=== PATIENT | female | born 1980 ===

== ENCOUNTER 2020-12-15 11:56 | Outpatient (REF) | payer MEDICAID, SELFPAY ==
--- NOTE | ~2020-12-15 | MM_ITS ---
EXAMINATION: MM SCREENING DIGITAL BREAST TOMOSYNTHESIS, BILATERAL CLINICAL INFORMATION: Screening. Asymptomatic. The lifetime risk of breast cancer based on the Tyrer-Cuzick Model is 21%. COMPARISON: Mammography: 04/17/2019, 04/12/2019 TECHNIQUE: Digital breast tomosynthesis is performed in both the craniocaudal and mediolateral oblique views along with computer-aided detection (CAD). Synthesized 2D images are generated from the tomosynthesis. Additional exaggerated right CC view is provided. FINDINGS: The breasts are almost entirely fatty (ACR BI-RADS breast composition Category a). There are no significant masses, abnormal calcifications, or other abnormalities. No developing density. The axilla and skin contours are unremarkable. MM/MM tomosynthesis screening BI IMPRESSION: No mammographic evidence of malignancy. ASSESSMENT: BI-RADS 1: Negative RECOMMENDATION: Routine annual mammography screening. This patient's information was entered into a reminder system with a target due date for their next mammogram.
== END 2020-12-15 11:57 | disposition home or self-care (01) ==
LOC: HO.MAMMO 11:56
PROVIDERS: PCP Internal Medicine; Visit Provider Internal Medicine
DX: Z12.31 Encounter for screening mammogram for malignant neoplasm of breast (principal)
CPT/HCPCS: 77063; 77067

== ENCOUNTER 2021-04-15 09:55 | Outpatient (REF) | payer MEDICAID, SELFPAY ==
--- NOTE | ~2021-04-15 | XR_ITS ---
EXAMINATION: XR KNEE, RIGHT CLINICAL INFORMATION: Right knee pain. COMPARISON: None. TECHNIQUE: Four views of the right knee. FINDINGS: There is mild narrowing of the medial compartment compared with the lateral compartment. Some minimal osteophytes are present on the tibial plateau medially. The patellofemoral compartment appears unremarkable. A tiny joint effusion is present. No acute fractures are seen. XR/XR knee RT 4V IMPRESSION: Mild degenerative changes with narrowing of the medial compartment.
== END 2021-04-15 09:56 | disposition home or self-care (01) ==
LOC: HO.XRAY 09:55
PROVIDERS: PCP Internal Medicine; Visit Provider Internal Medicine
DX: M25.561 Pain in right knee (principal)
CPT/HCPCS: 73564

== ENCOUNTER 2021-05-28 13:00 | Outpatient (RCR) | payer MEDICAID, SELFPAY | END 2021-09-18 14:47 | disposition home or self-care (01) | LOC: HO.PTWFD 13:00 | PROVIDERS: PCP Internal Medicine; Visit Provider Internal Medicine | DX: M25.561 Pain in right knee (principal) | CPT/HCPCS: 97110; 97140; 97161 ==

== ENCOUNTER → 2022-01-21 07:43 | Outpatient (REF) | payer MEDICAID, SELFPAY ==
--- NOTE | 2022-01-21 07:30 | CA_ITS ---
Transthoracic Echocardiogram Patient (Last, First, Middle): Mikaela Espinal L Gender: Female Date of : 1980 Age: 41 Procedure Date: 01/21/2022 Procedure Type: Transthoracic Echocardiogram Location: OP Height: 160.02 cm Weight: 142.88 kg BSA: 2.35 m2 Heart Rate: bpm BP: 130 / 80 mmHg Head Of Store Operations: JUAN JOSE Referring MD: Moni Green MD Symptoms: HTN [id number] Study Quality: Technically Difficult/Contrast ECG Rhythm: Sinus Conclusions: - The left ventricular systolic function is normal. The calculated ejection fraction is 65% by biplane method. - No obvious valvular pathology seen on this study. - Mild pulmonary hypertension is present. Findings Procedure Information Contrast agent, definity, is being given per protocol without apparent complications. Left Ventricle Normal left ventricular cavity size. There is normal left ventricular wall thickness. The left ventricular systolic function is normal. The calculated ejection fraction is 65% by biplane method. There is no evidence of regional wall motion abnormalities. Diastolic function is normal for age. Right Ventricle Normal right ventricular cavity size and systolic function. Atria Both atria are normal in size. Aortic Valve There is a normal trileaflet aortic valve. There is no aortic valve stenosis. There is no aortic valve regurgitation. Mitral Valve The mitral valve appears normal. There is trace mitral valve regurgitation. There is no mitral valve stenosis. Pulmonic Valve The pulmonic valve was not well visualized. Tricuspid Valve There is trace tricuspid valve regurgitation. The right ventricular systolic pressure is 41 mmHg. Mild pulmonary hypertension is present. Great Vessels The aortic annulus, sinuses of valsalva, and asc aorta are normal in size. Venous The inferior vena cava is normal in size and collapses greater than 50% with inspiration. Pericardium/Pleural There is no evidence of pericardial effusion. Prior Study Comparison No significant change compared to prior study dated: 06/05/2018. Recommendations, Care & Conclusions No obvious valvular pathology seen on this study. Measurements 2D Linear Measurements IVSd: 0.96 0.6-0.9/0.6-1.0 cm LVIDd: 5.37 3.9-5.3/4.2-5.9 cm LVIDd Index: 2.29 2.4-3.2/2.2-3.1 cm/m2 LVIDs: 3.91 2.0-3.6 cm LVPWd: 0.83 0.7-1.1 cm LA Diam: 4.20 2.7-3.8/3.0-4.0 cm LAIDs Index: 1.79 1.5-2.3 cm/m2 LV Mass: 220.38 67-162/88-224 g LV Mass Index: 93.78 43-95/49-115 g/m2 LVOT Diam: 2.10 3.0+(-)1.3 cm 2D Systolic Function EF 4C: 62.80 >55% EF 2C: 69.10 >55% EF BiP: 65.40 >55% Mitral Valve MV Pk E: 1.14 MV PK A: 1.09 MV Decel Time: 119.00 E/A: 1.00 E'Lateral: 10.40 E'Medial: 9.36 E/E' Med: 12.20 E/E' Lat: 11.00 PHT: 35.00 MVA PHT: 6.29 Decel [place]: 9.55 Aortic Valve AoV Pk Terry: 1.61 AoV Mn Terry: 1.12 AoV VTI: 0.33 AoV Pk Grad: 10.00 Aov Mn Grad: 6.00 DANDRE Cont.VTI: 2.82 LVOT LVOT Pk Terry: 1.19 LVOT Mn Terry: 0.70 LVOT VTI: 0.27 LVOT Pk Grad: 6.00 LVOT Mn Grad: 3.00 LVOT Diam: 2.10 LVOT Area: 3.46 Diastolic Function MV Pk E: 1.14 MV Pk A: 1.09 E/A: 1.00 E'Medial: 9.36 E/E' Med: 12.20 E' Laterial: 10.40 E/E' Lat: 11.00 Right Ventricle TAPSE (mm): 25.40 TVS' Terry: 11.60 Tricuspid Valve TR Pk Terry: 2.88 TR Pk Grad: 33.00 RA Press: 8.00 RVSP: 41.00 Great Vessels Aorta Sinus of Valsalva: 2.86 2.0-3.[address] [place]: 2.46 1.7-3.4 cm Ao Asc: 2.70 2.1-3.4 cm Ao Arch: 2.60 Updated in Other Vendor System with Status of Final Alok Domingo MD electronically signed on 01/23/2022 10:57:49 AM with status of Final
== END ==
LOC: HO.CARD 07:43
PROVIDERS: PCP Internal Medicine; Visit Provider Internal Medicine
DX: R06.00 Dyspnea, unspecified (principal); I10 Essential (primary) hypertension; G47.33 Obstructive sleep apnea (adult) (pediatric)
CPT/HCPCS: 93306; Q9957

== ENCOUNTER 2022-01-27 08:21 | Outpatient (REF) | payer MEDICAID, SELFPAY ==
--- NOTE | ~2022-01-27 | MM_ITS ---
EXAMINATION: MM SCREENING DIGITAL BREAST TOMOSYNTHESIS, BILATERAL CLINICAL INFORMATION: Screening. Asymptomatic. The lifetime risk of breast cancer based on the Tyrer-Cuzick Model is 14.3%. COMPARISON: Mammography: December 15, 2020 and studies dating back to April 12, 2019 TECHNIQUE: Digital breast tomosynthesis is performed in both the craniocaudal and mediolateral oblique views along with computer-aided detection (CAD). Synthesized 2D images are generated from the tomosynthesis. FINDINGS: The breasts are almost entirely fatty (ACR BI-RADS breast composition Category a). There are no significant masses, abnormal calcifications, or other abnormalities. MM/MM tomosynthesis screening BI IMPRESSION: There are no significant changes from prior study. ASSESSMENT: BI-RADS 1: Negative RECOMMENDATION: Routine annual mammography screening. This patient's information was entered into a reminder system with a target due date for their next mammogram.
== END 2022-01-27 08:22 | disposition home or self-care (01) ==
LOC: HO.MAMMO 08:21
PROVIDERS: PCP Internal Medicine; Visit Provider Internal Medicine
DX: Z12.31 Encounter for screening mammogram for malignant neoplasm of breast (principal)
CPT/HCPCS: 77063; 77067

== ENCOUNTER → 2022-07-14 12:44 | Outpatient (BNVA) | payer MEDICAID, SELFPAY | PROVIDERS: PCP Internal Medicine; Visit Provider Physician Assistant | DX: Z01.818 Encounter for other preprocedural examination (principal); E66.01 Morbid (severe) obesity due to excess calories; Z68.43 Body mass index [BMI] 50.0-59.9, adult; G47.33 Obstructive sleep apnea (adult) (pediatric); I10 Essential (primary) hypertension; J45.909 Unspecified asthma, uncomplicated; M19.90 Unspecified osteoarthritis, unspecified site; K21.9 Gastro-esophageal reflux disease without esophagitis; E55.9 Vitamin D deficiency, unspecified | CPT/HCPCS: 99202; 99212 ==

== ENCOUNTER 2022-07-22 07:57 | Outpatient (REF) | payer MEDICAID, SELFPAY ==
[2022-07-22 08:15] LABS: MANUAL DIFF FLAG NO
[2022-07-22 08:34] LABS: Basophils Percent Auto 0.5 % (0-2); Eosinophils Absolute Auto 0.1 X10*3/uL (0.0-0.4); Eosinophils Percent Auto 1.7 % (0-4); Hematocrit 40.2 % (37.0-47.0); Hemoglobin 12.8 g/dl (12.0-16.0); Imm Gran Abs Auto 0.03 X10*3/uL (0.00-0.03); Imm Gran Pct Auto 0.5 % (0.0-0.4); Lymphocytes Absolute Auto 2.2 X10*3/uL (1.2-4.9); Lymphocytes Percent Auto 32.8 % (20-40); Mean Corpuscular HGB Conc 31.8 g/dl (31.0-35.0); Mean Corpuscular Hemoglobin 26.6 pg (27.0-33.0); Mean Corpuscular Volume 83.4 fL (80.0-98.0); Mean Platelet Volume 11.6 fL (9.4-12.3); Monocytes Absolute Auto 0.4 X10*3/uL (0.1-1.2); Monocytes Percent Auto 6.3 % (2-11); Neutrophils Absolute Auto 3.9 x10*3/uL (2.0-8.3); Neutrophils Percent Auto 58.2 % (45-73); Platelet Count 225 X10*3/uL (160-400); Red Blood Count 4.82 X10*6/uL (4.20-5.50); Red Cell Distribution Width 12.9 % (11.0-16.0); White Blood Count 6.6 X10*3/uL (4.8-10.8)
[2022-07-22 08:48] LABS: Estimated Average Glucose 146 mg/dL; Hemoglobin A1c % 6.7 %
[2022-07-22 09:09] LABS: Alanine Aminotransferase 54 U/L (0-31); Albumin Level 4.1 g/dL (3.5-5.0); Alkaline Phosphatase 77 U/L (39-117); Anion Gap 13 (12-20); Aspartate Amino Transferase 42 U/L (5-31); Bilirubin Total 0.6 mg/dL (0.0-1.0); Blood Urea Nitrogen 14 mg/dL (9-16); C Reactive Protein 1.29 mg/dL (< or = 0.50); Carbon Dioxide 27 mmol/L (22-29); Chloride 103 mmol/L (96-108); Cholesterol 141 mg/dL; Estimated Glomerular Filt Rate > 60; Glucose Random 149 mg/dL (60-115); HDL Cholesterol 51 mg/dL; Iron 112 mcg/dL (30-160); LDL Cholesterol Calculated 78 mg/dl; Percent Iron Saturation 45 % (15-50); Sodium 139 mmol/L (135-145); Total Iron Binding Capacity 250 mcg/dL (228-428); Total Protein 7.7 g/dL (6.5-8.0); Triglycerides 64 mg/dL; Unsaturated Iron Binding 138 ug/dL
[2022-07-22 09:20] LABS: Ferritin 601 ng/mL (10-250); Insulin 29 uU/mL (2-29); TSH reflex Free T4 1.39 uIU/mL (0.32-4.0); Vitamin D 25-OH Total 19.9 ng/mL (>30)
[2022-07-22 09:30] LABS: Folate 12.3 ng/mL (> or = 4.0); Vitamin B12 517 pg/mL (200-900)
[2022-07-23 15:21] LABS: Calcium (PTHI) 8.7 mg/dL (8.6-10.2); PTHI 93 pg/mL (16-77)
[2022-07-27 22:22] LABS: Zinc 64 mcg/dL (60-130)
[2022-07-28 10:31] LABS: Vitamin A 23 mcg/dL (38-98)
[2022-07-28 17:27] LABS: Vitamin B1 <6 nmol/L (8-30)
== END 2022-07-22 07:58 | disposition home or self-care (01) ==
LOC: HO.LAB 07:57
PROVIDERS: PCP Internal Medicine; Visit Provider Physician Assistant
DX: Z01.818 Encounter for other preprocedural examination (principal)
CPT/HCPCS: 36415; 80053; 80061; 82306; 82607; 82728; 82746; 83036; 83525; 83540; 83970; 84425; 84443; 84590; 84630; 85025; 86140

== ENCOUNTER → 2022-07-28 08:52 | Outpatient (BNVA) | payer MEDICAID, SELFPAY | PROVIDERS: PCP Internal Medicine; Visit Provider Physician Assistant Surgical | DX: Z11.0 Encounter for screening for intestinal infectious diseases (principal) | CPT/HCPCS: 99211 ==

== ENCOUNTER 2022-07-28 09:15 | Outpatient (REF) | payer MEDICAID, SELFPAY ==
[2022-07-29 15:58] LABS: H Pylori Breath Test Negative (Negative)
== END 2022-07-28 09:16 | disposition home or self-care (01) ==
LOC: HO.LNP 09:15
PROVIDERS: Visit Provider Physician Assistant
DX: Z01.818 Encounter for other preprocedural examination (principal)
CPT/HCPCS: 83013

== ENCOUNTER → 2022-07-30 11:11 | Outpatient (BNVA) | payer MEDICAID, SELFPAY | PROVIDERS: PCP Internal Medicine; Referring Provider Physician Assistant; Visit Provider Dietitian, Registered | DX: E66.01 Morbid (severe) obesity due to excess calories (principal) | CPT/HCPCS: 97802 ==

== ENCOUNTER → 2022-08-02 13:42 | Outpatient (BNVA) | payer MEDICAID, SELFPAY | PROVIDERS: PCP Internal Medicine; Visit Provider Internal Medicine | DX: M54.16 Radiculopathy, lumbar region (principal) | CPT/HCPCS: 99202 ==

== ENCOUNTER → 2022-08-10 13:43 | Outpatient (BNVA) | payer MEDICAID, SELFPAY | PROVIDERS: PCP Internal Medicine; Visit Provider Physician Assistant | DX: E66.01 Morbid (severe) obesity due to excess calories (principal); Z68.43 Body mass index [BMI] 50.0-59.9, adult | CPT/HCPCS: 99212 ==

== ENCOUNTER → 2022-08-23 11:44 | Outpatient (BNVA) | payer MEDICAID, SELFPAY | PROVIDERS: PCP Internal Medicine; Visit Provider Dietitian, Registered | DX: E66.01 Morbid (severe) obesity due to excess calories (principal) | CPT/HCPCS: 97803 ==

== ENCOUNTER → 2022-09-02 13:20 | Outpatient (BNVA) | payer MEDICAID, SELFPAY | PROVIDERS: PCP Internal Medicine; Referring Provider Internal Medicine; Visit Provider Physician Assistant | DX: Z01.818 Encounter for other preprocedural examination (principal); E66.01 Morbid (severe) obesity due to excess calories; Z68.43 Body mass index [BMI] 50.0-59.9, adult; G47.33 Obstructive sleep apnea (adult) (pediatric); I10 Essential (primary) hypertension; K21.9 Gastro-esophageal reflux disease without esophagitis | CPT/HCPCS: 99212 ==

== ENCOUNTER 2022-09-08 05:39 | Outpatient (REF) | payer MEDICAID, SELFPAY ==
--- NOTE | ~2022-09-08 | FL_ITS ---
EXAMINATION: XR FLUOROSCOPY WITH IMAGES CLINICAL INFORMATION: M54.16 - Radiculopathy, lumbar region COMPARISON: None. TECHNIQUE: Fluoroscopy performed by Dr. Srinivasa Strickland. Fluoroscopy time: 0.6 minutes. Cumulative Dose: 42.3 mGy. DAP: 5.48 Gy-cm2. Images: 3. FINDINGS: There is a spinal needle overlying the outer right L3 neural foramen. There is contrast seen in the respective nerve sheath. No visible vascular communication. There is a catheter overlying lower right paralumbar region, presumably outside the patient. FL/FL guidance in treatment room IMPRESSION: Fluoroscopy for pain management procedures.
== END 2022-09-08 05:40 | disposition home or self-care (01) ==
LOC: HO.RADIR 05:39
PROVIDERS: Visit Provider Internal Medicine
DX: M54.16 Radiculopathy, lumbar region (principal)
CPT/HCPCS: 64483; J1100

== ENCOUNTER 2022-09-17 08:43 | Outpatient (REF) | payer MEDICAID, SELFPAY ==
--- NOTE | ~2022-09-17 | XR_ITS ---
EXAMINATION: XR CHEST CLINICAL INFORMATION: Morbid/severe obesity due to excess calories COMPARISON: None TECHNIQUE: 2 views of the chest were obtained. FINDINGS: No significant abnormality is noted involving the heart, lungs, mediastinum, bony thorax or soft tissues. XR/XR chest 2V IMPRESSION: Unremarkable chest examination.
--- NOTE | 2022-09-17 08:49 | ECG_ITS ---
Test Reason : e66.01 Blood Pressure : / mmHG Vent. Rate : 080 BPM Atrial Rate : 080 BPM P-R Int : 142 ms QRS Dur : 082 ms QT Int : 392 ms P-R-T Axes : 054 013 007 degrees QTc Int : 452 ms Normal sinus rhythm Normal ECG When compared with ECG of 29-MAY-2020 12:24, No significant change was found Referred By: Taylor Bean Electronically Signed By:RAGHU BAH MD
== END 2022-09-17 08:44 | disposition home or self-care (01) ==
LOC: HO.XRAY 08:43
PROVIDERS: PCP Internal Medicine; Visit Provider Physician Assistant
DX: Z01.818 Encounter for other preprocedural examination (principal); E66.01 Morbid (severe) obesity due to excess calories; G47.33 Obstructive sleep apnea (adult) (pediatric); I10 Essential (primary) hypertension; K21.9 Gastro-esophageal reflux disease without esophagitis
CPT/HCPCS: 71046; 93005

== ENCOUNTER → 2022-09-24 09:29 | Outpatient (BNVA) | payer MEDICAID, SELFPAY | PROVIDERS: PCP Internal Medicine; Referring Provider Internal Medicine; Visit Provider Physician Assistant | DX: E66.01 Morbid (severe) obesity due to excess calories (principal); G47.33 Obstructive sleep apnea (adult) (pediatric); I10 Essential (primary) hypertension; K21.9 Gastro-esophageal reflux disease without esophagitis; Z68.43 Body mass index [BMI] 50.0-59.9, adult | CPT/HCPCS: 99212 ==

== ENCOUNTER 2022-10-07 07:49 | Outpatient (REF) | payer MEDICAID, SELFPAY ==
--- NOTE | ~2022-10-07 | US_ITS ---
EXAMINATION: US COMPLETE ABDOMEN WITH LIVER ELASTOGRAPHY CLINICAL INFORMATION: Morbid/severe obesity due to excess calories. COMPARISON: CT abdomen and pelvis without contrast 09/13/2018 TECHNIQUE: Real-time imaging of the abdominal viscera. Noninvasive ultrasound liver fibrosis assessment is performed using Parvin ElastPQ point quantification shear wave elastography (2D-SWE) with a C5-2 MHz transducer. Multiple elastography samples are obtained. FINDINGS: PANCREAS: The visualized pancreatic head and body are normal in appearance. The remainder of the pancreas is obscured from visualization by the overlying bowel gas. ABDOMINAL AORTA: The proximal, middle, and distal aortic segments are normal in caliber. INFERIOR VENA CAVA: Visualized portions are normal. LIVER: The liver demonstrates normal size and contour with increased echogenicity. No focal lesion or intrahepatic biliary duct dilatation. The right lobe measures 20.5 cm in length. The left lobe measures 12.9 cm in length. Portal flow is hepatopetal. Shear wave liver elastography median stiffness is 1.29 m/s (reference: Normal median stiffness is 1.3 m/s or less). IQR/median stiffness to assess sampling precision is 0.05 (reference: Good quality data set is IQR/median stiffness of 0.15 or less). GALLBLADDER: Normal. The gallbladder is physiologically distended without evidence of stones, sludge, polyps, wall thickening or pericholecystic fluid. COMMON BILE DUCT: Normal in caliber measuring 1.0 cm in diameter. RIGHT KIDNEY: Normal. No hydronephrosis. No renal calculi or focal parenchymal lesions. The kidney measures 12.7 cm in maximum dimension. LEFT KIDNEY: There is an anechoic cyst in the mid pole measuring 1.5 x 1.4 x 1.5 cm. A cyst wasn't visualized in the upper/mid pole left kidney on previous CT abdominal exam 09/13/2018. No hydronephrosis. No renal calculi or focal parenchymal lesions. The kidney measures 13.2 cm in maximum dimension. SPLEEN: Normal. The spleen measures 12.0 cm in maximum dimension. FREE FLUID: None. US/US abdomen comp w elastography IMPRESSION: 1. Small mid pole cyst left kidney measuring 1.5 cm. Diffuse hepatic steatosis without focal lesion. 2. Liver Elastography: Median liver stiffness measures 1.29 m/s corresponding to high probability normal exam. REFERENCE: Society of Radiologists in Ultrasound Liver Stiffness Thresholds (2020): LIVER STIFFNESS THRESHOLDS: *Liver Stiffness equal or less than 1.3 m/s: High probability of being normal. *Liver Stiffness less than 1.7 m/s: In the absence of other known clinical signs, rules out compensated advanced chronic liver disease. *Liver Stiffness 1.7-2.1 m/s: Suggestive of compensated advanced chronic liver disease but need further test for confirmation. *Liver Stiffness over 2.1 m/s: Rules in compensated advanced chronic liver disease. *Liver Stiffness over 2.4 m/s: Suggestive of clinically significant portal hypertension. QUALITY OF DATA SET: *IQR/Median value equal or less than 0.15 implies a quality data set. *IQR/Median value over 0.15 implies a poor quality data set. SIGNIFICANT CHANGE FROM PRIOR EXAM: Significant change if liver stiffness measurement is 10% or greater from prior exam. OTHER CONSIDERATIONS: The stage of liver fibrosis may be overestimated in the setting of acute hepatitis, liver inflammation, elevated liver function tests, hepatic vascular congestion, obstructive cholestasis, non-fasting state, and infiltrative diseases such as amyloidosis and lymphoma. In some patients with NAFLD, the liver stiffness thresholds for compensated advanced chronic liver disease may be lower. In causes other than viral hepatitis and NAFLD, liver stiffness thresholds are not well established.
--- NOTE | ~2022-10-07 | FL_ITS ---
EXAMINATION: XR FLUOROSCOPY UPPER GI WITH AIR CLINICAL INFORMATION: Morbid/severe obesity due to excess calories COMPARISON: None TECHNIQUE: Routine upper GI air-contrast study was performed in upright and lying position. FINDINGS: Following oral administration of thick barium and effervescent granules there is normal propagation of bolus from the oral cavity through the pharynx, esophagus into stomach without any evidence of obstruction, narrowing or stricture. There is no extrinsic compression. On placing patient supine and prone the course, caliber and peristalsis of the stomach, duodenal bulb and the sweep is normal. The mucosal pattern of esophagus, stomach and the duodenum is normal. There is a moderate to large gastroesophageal reflux without hiatal hernia. FLUOROSCOPY TIME: 1.3 minutes DOSE AREA PRODUCT: 36.858 uGy-m2 (microgray-meter squared) FL/FL upper GI w air IMPRESSION: Large gastroesophageal reflux without hiatal hernia. Otherwise unremarkable.
== END 2022-10-07 07:50 | disposition home or self-care (01) ==
LOC: HO.US 07:49
PROVIDERS: Visit Provider Physician Assistant
DX: Z01.818 Encounter for other preprocedural examination (principal); E66.01 Morbid (severe) obesity due to excess calories; K21.9 Gastro-esophageal reflux disease without esophagitis; I10 Essential (primary) hypertension
CPT/HCPCS: 74246; 76705; 76981

== ENCOUNTER → 2022-10-15 08:17 | Outpatient (BNVA) | payer MEDICAID, SELFPAY | PROVIDERS: PCP Internal Medicine; Visit Provider Internal Medicine | DX: M54.16 Radiculopathy, lumbar region (principal); Z98.890 Other specified postprocedural states | CPT/HCPCS: 99212 ==

== ENCOUNTER → 2022-10-22 10:52 | Outpatient (BNVA) | payer MEDICAID, SELFPAY | PROVIDERS: PCP Internal Medicine; Referring Provider Internal Medicine; Visit Provider Physician Assistant | DX: E66.01 Morbid (severe) obesity due to excess calories (principal); Z68.43 Body mass index [BMI] 50.0-59.9, adult; G47.33 Obstructive sleep apnea (adult) (pediatric); I10 Essential (primary) hypertension | CPT/HCPCS: 99212 ==

== ENCOUNTER → 2022-11-10 08:51 | Outpatient (BNVA) | payer MEDICAID, SELFPAY | PROVIDERS: PCP Internal Medicine; Visit Provider Surgery | DX: Z13.89 Encounter for screening for other disorder (principal) ==

== ENCOUNTER → 2022-11-19 09:20 | Outpatient (BNVA) | payer MEDICAID, SELFPAY | PROVIDERS: PCP Internal Medicine; Visit Provider Surgery | DX: Z13.89 Encounter for screening for other disorder (principal) ==

== ENCOUNTER → 2022-11-26 07:48 | Outpatient (BNVA) | payer MEDICAID, SELFPAY | PROVIDERS: PCP Internal Medicine; Referring Provider Internal Medicine; Visit Provider Surgery | DX: Z13.89 Encounter for screening for other disorder (principal) ==

== ENCOUNTER 2022-11-30 08:21 | Inpatient (IN) | payer MEDICAID, SELFPAY ==
[2022-11-24 08:19] LABS: MANUAL DIFF FLAG NO
[2022-11-24 08:56] LABS: Basophils Percent Auto 0.3 % (0-2); Eosinophils Absolute Auto 0.1 X10*3/uL (0.0-0.4); Eosinophils Percent Auto 1.4 % (0-4); Hematocrit 40.7 % (37.0-47.0); Hemoglobin 13.2 g/dl (12.0-16.0); Imm Gran Abs Auto 0.02 X10*3/uL (0.00-0.03); Imm Gran Pct Auto 0.3 % (0.0-0.4); Lymphocytes Absolute Auto 2.2 X10*3/uL (1.2-4.9); Lymphocytes Percent Auto 27.5 % (20-40); Mean Corpuscular HGB Conc 32.4 g/dl (31.0-35.0); Mean Corpuscular Hemoglobin 26.4 pg (27.0-33.0); Mean Corpuscular Volume 81.4 fL (80.0-98.0); Mean Platelet Volume 11.9 fL (9.4-12.3); Monocytes Absolute Auto 0.4 X10*3/uL (0.1-1.2); Monocytes Percent Auto 5.5 % (2-11); Neutrophils Absolute Auto 5.2 x10*3/uL (2.0-8.3); Platelet Count 223 X10*3/uL (160-400); Red Cell Distribution Width 12.9 % (11.0-16.0)
[2022-11-24 09:01] LABS: INTERNATIONAL NORM RATIO 1.1 (0.9-1.1); Prothrombin Time 12.5 SEC (10.0-13.1)
[2022-11-24 09:03] LABS: Estimated Average Glucose 114 mg/dL; Hemoglobin A1c % 5.6 %; Partial Thromboplastin Time 30.7 SEC (26.0-36.4)
[2022-11-24 09:27] LABS: Alanine Aminotransferase 35 U/L (0-31); Albumin Level 4.1 g/dL (3.5-5.0); Alkaline Phosphatase 81 U/L (39-117); Anion Gap 11 (12-20); Aspartate Amino Transferase 28 U/L (5-31); Bilirubin Total 0.6 mg/dL (0.0-1.0); Blood Urea Nitrogen 13 mg/dL (9-16); Calcium 9.2 mg/dL (8.4-10.2); Carbon Dioxide 28 mmol/L (22-29); Chloride 103 mmol/L (96-108); Cholesterol 128 mg/dL; Estimated Glomerular Filt Rate > 60; Glucose Random 108 mg/dL (60-115); HDL Cholesterol 48 mg/dL; LDL Cholesterol Calculated 66 mg/dl; Potassium 3.6 mmol/L (3.3-5.1); Sodium 138 mmol/L (135-145); Total Protein 7.5 g/dL (6.5-8.0); Triglycerides 73 mg/dL
[2022-11-24 09:49] LABS: Insulin 18 uU/mL (2-29)
[2022-11-24 14:33] VITALS: BMI 54.1
--- NOTE | 2022-11-26 18:47 | MHC.SHP ---
Pre-Procedural Eval Section A Date of Service: 11/26/22 The patient is an INPATIENT: Yes The History & Physical has been completed within 30 days and I have reviewed it.: Yes Section B Chief Complaint: Morbid (severe) obesity due to excess calories Relevant Family History (Specify if Yes): No Relevant Social History: None Present Medications: None Medical History: No relevant PMH History of Previous Operations: No relevant previous surgery Allergies: Allergies Allergy/AdvReac Type Severity Reaction Status Date / Time Cortisone Allergy Intermediate itching,hiv Uncoded 11/24/22 14:31 es Review of Systems Sugical H&P ROS: Negative: Constitution, Cardiovascular, Respiratory, Neurological, Psychiatric, Hem-Onc, Allergic/Immunologic, Gastrointestinal, Genitourinary, Musculoskeletal, Integumentary, Endocrine and Eyes/Ears/Nose/Throat Exam Surgical H&P Exam: Normal: HEENT, Normal: Heart, Normal: Lungs, Normal: Extremities, Normal: Abdomen, Normal: Skin and Normal: Neurological Plan Diagnosis/Plan: Unchanged I have reviewed the history and physical and performed a pertinent physical examination on my patient. No changes have occurred unless specified. Time Spent With Patient Time: Total time managing care of this patient today ____ minutes.
--- NOTE | 2022-11-29 10:15 | P.CONAN_ITS ---
Documented by User: Mercy Saxena NP 11/29/22 10:16 HPI - Anesthesia Eval Consult details Narrative: 42yo F for Gastrectomy Sleeve, possible diaphragmatic hernia,possible ventral hernia, possible open PMFSH Active Problems Active Problems: All Active Problems (Updated 11/24/22 @ 14:31 by Vandana Cronin RN) Morbid obesity (Acute) Obstructive sleep apnea (Acute) HTN (hypertension), benign (Acute) Arthritis (Acute) Asthma (Acute) GERD (gastroesophageal reflux disease) (Acute) Vitamin D deficiency (Acute) Pre-op evaluation (Acute) Lumbar radiculopathy (Acute) Past Medical History Medical History Arthritis Asthma GERD (gastroesophageal reflux disease) HTN (hypertension) SUMIT on CPAP Family History Family History Mother Hypertension Father Diabetes Hypertension Heart problem Son No problems noted. Son No problems noted. Daughter No problems noted. Daughter No problems noted. Surgical History Surgical History H/O tubal ligation H/O: hysterectomy Hx of section Hx of cholecystectomy Hx of colonoscopy Social History Social History Household Members: Family Housing: House Are you a primary health care facilities inspector to a significant other at home: No Do you presently have visiting nurse or other home services: No Alcohol intake: never Patient Tobacco Use Status: Never used Tobacco Use of substances other than those prescribed or required for medical reasons: No Have you been hit, kicked, punched, or otherwise hurt by someone within the past year? If so, by whom?: No Are you DNR?: No Advance Directives: No Advance Directives Information Provided: Yes Advance Directives on File: No Recently lost weight without trying: No Patient : No FDLMP: s/p hysterectomy : No Poor oral hygiene: No Meds Allergies Allergy/AdvReac Type Severity Reaction Status Date / Time Cortisone Allergy Intermediate itching,hiv Uncoded 11/30/22 08:47 es Home Medications Medication Instructions Recorded Confirmed Last Taken Type amlodipine 5 mg tablet 5 mg PO DAILY 07/14/22 11/24/22 11/30/22 06:30 History budesonide-formoterol HFA 160 2 puff inhalation 07/14/22 11/19/22 11/30/22 06:30 History mcg-4.5 mcg/actuation aerosol inhaler (Symbicort) cetirizine 10 mg tablet 10 mg PO DAILY 07/14/22 11/24/22 11/29/22 History cyclobenzaprine 10 mg tablet 10 mg PO BEDTIME 07/14/22 11/19/22 11/17/22 History fluticasone propionate 220 1 puff inhalation BID 07/14/22 11/24/22 11/30/22 06:30 History mcg/actuation HFA aerosol inhaler (Flovent HFA) ipratropium 0.5 mg-albuterol 3 mg ml inhalation QID 07/14/22 11/19/22 11/30/22 06:30 History (2.5 mg base)/3 mL nebulization soln naproxen sodium 220 mg tablet 220 mg PO BID PRN pain 07/14/22 11/19/22 11/17/22 History sennosides 8.6 mg tablet (senna) 8.6 mg PO BID PRN constipation 07/14/22 11/19/22 Unknown History ergocalciferol (vitamin D2) 1,250 1,250 mcg PO QWEEK 10/22/22 11/24/22 11/29/22 History mcg (50,000 unit) capsule Exam Exam Date and Time: November 29, 2022 1015 Height,Weight and Vital Signs: Height 5 ft 2 in Weight 134.263 kg Pertinent Lab Results Pertinent Lab Results: Laboratory Tests 11/24/22 11/24/22 11/24/22 08:14 08:18 08:18 WBC 8.0 RBC 5.00 Hgb 13.2 Hct 40.7 MCV 81.4 MCH 26.4 L MCHC 32.4 RDW 12.9 Plt Count 223 MPV 11.9 Immature Gran % (Auto) 0.3 Neut % (Auto) 65.0 Lymph % (Auto) 27.5 Loving % (Auto) 5.5 Eos % (Auto) 1.4 Baso % (Auto) 0.3 Lymph # (Auto) 2.2 Loving # (Auto) 0.4 Eos # (Auto) 0.1 Baso # (Auto) 0.0 Abs Immat Gran (auto) 0.02 Absolute Neuts (auto) 5.2 Absolute Nucleated RBC 0.000 Nucleated RBC % (auto) 0.0 PT 12.5 INR 1.1 APTT 30.7 Sodium Potassium Chloride Carbon Dioxide Anion Gap BUN Creatinine Estim Creat Clear Calc Estimated GFR Random Glucose Estimat Average Glucose Hemoglobin A1c % Insulin Level Calcium Total Bilirubin AST ALT Alkaline Phosphatase C-Reactive Protein Total Protein Albumin Triglycerides Cholesterol LDL Cholesterol, Calc HDL Cholesterol TSH Blood Type A Positive Antibody Screen NEGATIVE 11/24/22 11/24/22 08:18 08:18 WBC RBC Hgb Hct MCV MCH MCHC RDW Plt Count MPV Immature Gran % (Auto) Neut % (Auto) Lymph % (Auto) Loving % (Auto) Eos % (Auto) Baso % (Auto) Lymph # (Auto) Loving # (Auto) Eos # (Auto) Baso # (Auto) Abs Immat Gran (auto) Absolute Neuts (auto) Absolute Nucleated RBC Nucleated RBC % (auto) PT INR APTT Sodium 138 Potassium 3.6 Chloride 103 Carbon Dioxide 28 Anion Gap 11 L BUN 13 Creatinine 0.61 Estim Creat Clear Calc TNP Estimated GFR > 60 Random Glucose 108 Estimat Average Glucose 114 Hemoglobin A1c % 5.6 Insulin Level 18 Calcium 9.2 Total Bilirubin 0.6 AST 28 ALT 35 H Alkaline Phosphatase 81 C-Reactive Protein 1.80 H Total Protein 7.5 Albumin 4.1 Triglycerides 73 Cholesterol 128 LDL Cholesterol, Calc 66 HDL Cholesterol 48 TSH 1.50 Blood Type Antibody Screen Narrative Narrative: EKG 09/2022 Vent. Rate : 080 BPM ? ? Atrial Rate : 080 BPM ?? P-R Int : 142 ms? QRS Dur : 082 ms ? ? QT Int : 392 ms ? ? ? P-R-T Axes : 054 013 007 degrees ?? QTc Int : 452 ms ? Normal sinus rhythm Normal ECG When compared with ECG of 29-MAY-2020 12:24, No significant change was found Assessment and Plan Assessment Anesthesia Assessment: Chart Reviewed Documented by User: Gabby Naqvi MD 11/30/22 12:39 [facility] Active Problems Active Problems: All Active Problems (Updated 11/24/22 @ 14:31 by Vandana Cronin, GERARDO) Morbid obesity (Acute) Obstructive sleep apnea (Acute). Using CPAP machine HTN (hypertension), benign (Acute) Arthritis (Acute) Asthma (Acute) GERD (gastroesophageal reflux disease) (Acute) Vitamin D deficiency (Acute) Pre-op evaluation (Acute) Lumbar radiculopathy (Acute)- better when sitting reclined in bed Past Medical History Medical History Arthritis Asthma GERD (gastroesophageal reflux disease) HTN (hypertension) SUMIT on CPAP Family History Family History Mother Hypertension Father Diabetes Hypertension Heart problem Son No problems noted. Son No problems noted. Daughter No problems noted. Daughter No problems noted. Family history of problems with anesthesia: Yes (Mother- does not know what reaction to anesthesia) Surgical History Surgical History H/O tubal ligation H/O: hysterectomy Hx of section Hx of cholecystectomy Hx of colonoscopy History of Problems with Anesthesia: Yes (Hypotension with Lap choley, C- Section(spinal)) Social History Social History Household Members: Family Housing: House Are you a primary health care facilities inspector to a significant other at home: No Do you presently have visiting nurse or other home services: No Alcohol intake: never Patient Tobacco Use Status: Never used Tobacco Use of substances other than those prescribed or required for medical reasons: No Have you been hit, kicked, punched, or otherwise hurt by someone within the past year? If so, by whom?: No Are you DNR?: No Advance Directives: No Advance Directives Information Provided: Yes Advance Directives on File: No Recently lost weight without trying: No Patient : No FDLMP: s/p hysterectomy : No Poor oral hygiene: No Meds Allergies Allergy/AdvReac Type Severity Reaction Status Date / Time Cortisone Allergy Intermediate itching,hiv Uncoded 11/30/22 08:47 es Home Medications Medication Instructions Recorded Confirmed Last Taken Type amlodipine 5 mg tablet 5 mg PO DAILY 07/14/22 11/24/22 11/30/22 06:30 History budesonide-formoterol HFA 160 2 puff inhalation 07/14/22 11/19/22 11/30/22 06:30 History mcg-4.5 mcg/actuation aerosol inhaler (Symbicort) cetirizine 10 mg tablet 10 mg PO DAILY 07/14/22 11/24/22 11/29/22 History cyclobenzaprine 10 mg tablet 10 mg PO BEDTIME 07/14/22 11/19/22 11/17/22 History fluticasone propionate 220 1 puff inhalation BID 07/14/22 11/24/22 11/30/22 06:30 History mcg/actuation HFA aerosol inhaler (Flovent HFA) ipratropium 0.5 mg-albuterol 3 mg ml inhalation QID 07/14/22 11/19/22 11/30/22 06:30 History (2.5 mg base)/3 mL nebulization soln naproxen sodium 220 mg tablet 220 mg PO BID PRN pain 07/14/22 11/19/22 11/17/22 History sennosides 8.6 mg tablet (senna) 8.6 mg PO BID PRN constipation 07/14/22 11/19/22 Unknown History ergocalciferol (vitamin D2) 1,250 1,250 mcg PO QWEEK 10/22/22 11/24/22 11/29/22 History mcg (50,000 unit) capsule Exam Height,Weight and Vital Signs: Height 5 ft 2 in Weight 134.263 kg Vital Signs Temp Pulse Resp BP Pulse Ox O2 Del Method 11/30/22 08:47 97.6 F 96 17 113/68 96 Room Air Pertinent Lab Results Pertinent Lab Results: Laboratory Tests 11/24/22 11/24/22 11/24/22 08:14 08:18 08:18 WBC 8.0 RBC 5.00 Hgb 13.2 Hct 40.7 MCV 81.4 MCH 26.4 L MCHC 32.4 RDW 12.9 Plt Count 223 MPV 11.9 Immature Gran % (Auto) 0.3 Neut % (Auto) 65.0 Lymph % (Auto) 27.5 Loving % (Auto) 5.5 Eos % (Auto) 1.4 Baso % (Auto) 0.3 Lymph # (Auto) 2.2 Loving # (Auto) 0.4 Eos # (Auto) 0.1 Baso # (Auto) 0.0 Abs Immat Gran (auto) 0.02 Absolute Neuts (auto) 5.2 Absolute Nucleated RBC 0.000 Nucleated RBC % (auto) 0.0 PT 12.5 INR 1.1 APTT 30.7 Sodium Potassium Chloride Carbon Dioxide Anion Gap BUN Creatinine Estim Creat Clear Calc Estimated GFR Random Glucose Estimat Average Glucose Hemoglobin A1c % Insulin Level Calcium Total Bilirubin AST ALT Alkaline Phosphatase C-Reactive Protein Total Protein Albumin Triglycerides Cholesterol LDL Cholesterol, Calc HDL Cholesterol TSH Blood Type A Positive Antibody Screen NEGATIVE 11/24/22 11/24/22 08:18 08:18 WBC RBC Hgb Hct MCV MCH MCHC RDW Plt Count MPV Immature Gran % (Auto) Neut % (Auto) Lymph % (Auto) Loving % (Auto) Eos % (Auto) Baso % (Auto) Lymph # (Auto) Loving # (Auto) Eos # (Auto) Baso # (Auto) Abs Immat Gran (auto) Absolute Neuts (auto) Absolute Nucleated RBC Nucleated RBC % (auto) PT INR APTT Sodium 138 Potassium 3.6 Chloride 103 Carbon Dioxide 28 Anion Gap 11 L BUN 13 Creatinine 0.61 Estim Creat Clear Calc TNP Estimated GFR > 60 Random Glucose 108 Estimat Average Glucose 114 Hemoglobin A1c % 5.6 Insulin Level 18 Calcium 9.2 Total Bilirubin 0.6 AST 28 ALT 35 H Alkaline Phosphatase 81 C-Reactive Protein 1.80 H Total Protein 7.5 Albumin 4.1 Triglycerides 73 Cholesterol 128 LDL Cholesterol, Calc 66 HDL Cholesterol 48 TSH 1.50 Blood Type Antibody Screen Laboratory Results - last 24 hr 11/29/22 12:47 COVID-19 (OJ) Negative COVID-19 Clin Com See Note Airway Mallampati Class: II (Good mouth opening but short fat neck, large face) TM Dist: >3cm Neck ROM: Full Loose/Missing/Broken Teeth: Yes (Some missing bottom left. Denies broken or loose teeth) Heart: RRR Lungs: CTAB. No wheezes Assessment and Plan Assessment Anesthesia Assessment: Anesthesia Plan Discussed Final Anesthetic Review Family History of Problems with Anesthesia: Yes (Mother- does not know what reaction to anesthesia) History of Problems with Anesthesia: Yes (Hypotension with Lap choley, C- Section(spinal)) NPO: Yes ASA Class: III Final Preanesthetic Review: No Changes in Pt Med Stat, Meds/Allgs Chart Reviewed, Consent Obtained/Reviewed and Anes Risks/Benef Reviewed Patient Risk: Intermediate Procedure Risk: Intermediate Assessment/Block/Sedation in SS: Assess/Block/Sedation-SS Anesthetic Plan Anesthetic Plan: GA Disposition: Standard PACU and Inp. Admit - Standard Bed
[2022-11-29 13:19] LABS: COVID-19 Test Negative (Negative); IDNOW Serial# 9DB6401D
[2022-11-30] VITALS (14 sets, daily range): BP systolic 113–168; BP diastolic 68–97; PULSE 87–102; RESP 16–21; TEMP 36.3–37.4; O2SAT 94–100
[2022-11-30] MEDS: Lactated Ringers 1,000 ML 999 ML IV (09:26)
--- NOTE | 2022-11-30 10:19 | P.BOP_ITS ---
Brief Operative Note Date of Service: 11/30/22 Pre-op diagnosis: Morbid obesity with comorbidities (see below) Post-op diagnosis: same Procedure: INITIAL PATIENT BMI ON PRESENTATION AT OUR OFFICE: 59.3 kg/m2 LAST BMI BEFORE SURGERY: 52.3 kg/m2 COMORBIDITIES: Sleep apnea on CPAP, GERD, hypertension, DJD, liver steatosis, asthma, hepatomegaly ?The patient presented to the Weight Management Program with significant obesity that was negatively impacting the patient's comorbidities as listed above.? The program is a phased program with a special focus on preoperative medical weight management to promote substantial weight loss and prepare the patients for the second phase of the program: bariatric surgery. The patient participated in an intensive weekly lifestyle ?intervention and exercise program during which the patient ?has lost between the initial office visit and the last preoperative visit 38.6 lbs, or 11.88% of initial actual body weight. It was deemed appropriate for the patient to now have bariatric surgery. In light of the current Covid-19 pandemic and the well documented strong association of obesity and increased risk of worse outcomes if infected with Covid-19 (REFERENCES: https://pubmed.ncbi.nlm.nih.gov/67813992/ ,? https://pubmed.ncbi.nlm.nih.gov/58071304/ ), any delay in undergoing bariatric surgery may lead to the patient's worsening health condition and increased?risk of more severe Covid-19 disease if infected. In addition a recent?study from [facility] published in [facility] [employer] on 11/02/2021 ([email or web address]) found that, among patients with obesity, substantial weight loss achieved with surgery was associated with improved outcomes of COVID-19 infection. The findings suggest that obesity can be a modifiable risk factor for the severity of COVID-19 infection. In addition, the patient met the BMI-criteria for bariatric surgery based on the BMI on initial presentation. The patient should not be penalized for achieving such weight loss because ?it is not sustainable long-term without surgical intervention and it was achieved in preparation for bariatric surgery ?under my direction and based on my published research ([email or web address]).[email or web address] and? https://www.soard.org/article/[email or web address](52)41330-X/pdf ) ?that a 10% preoperative weight loss improves long-term weight loss after surgery and reduces perioperative complications.? Insurance carriers such as [facility] have endorsed my recommendations ?and have included in their policies criteria to include a 10% preoperative weight loss requirement. PROCEDURE: Esophago-gastroscopy, laparoscopic sleeve gastrectomy and laparoscopic gastropexy INDICATIONS: This is a 42 year-old female who was electively scheduled for laparoscopic, possibly open sleeve gastrectomy. The risks and complications of the?procedure?were discussed with the patient in advance, particularly the possibility of ; pulmonary embolism; staple line leak; bleeding; GERD; cardiac, pulmonary, or renal complications; as well as long-term problems such as insufficient weight loss, vitamin deficiency, strictures, or ulcers. The patient understood all the risks, and was in agreement to proceed with surgery. DESCRIPTION OF?PROCEDURE: After informed consent was obtained from the patient, the patient was given preoperative antibiotics, and was transferred to the operating room. After successful induction of general anesthesia, pneumatic compression devices were placed on both lower extremities. An upper endoscopy was performed next. The oropharynx and esophagus appeared to be within normal limits. There was no diaphragmatic hernia present consistent with the findings of the preoperative upper GI. The stomach was entered. Then after all fluid and air were suctioned and the stomach was fully decompressed, the scope was withdrawn and secured in the mid esophagus. The patient was then prepped and draped in the usual sterile manner, and abdominal access was established at the right upper quadrant with the Monica technique. A 12 mm blunt port was inserted, and the abdomen was insufflated with CO2 to a pressure of 15 mmHg. Under direct visualization, additional ports were placed, specifically two 5 mm Versi-step ports to the left upper quadrant, and a 5 mm Versi-Step port to the right upper quadrant. 1% lidocaine plain was used to infiltrate all port sites as well as all fascia defects. Following that, the patient was placed in a steep reverse Trendelenburg position. An additional 5 mm port was placed to the right flank for the Mediflex retractor that was used to retract the left lobe of the liver. The gastro-esophageal fat pad was opened with the ultrasonic device (Thunderbeat, Olympus) and the anterior esophagus and hiatus were exposed. The angle of His was opened with the ultrasonic device the fundus of the stomach from any diaphragmatic and splenic attachments. I then opened the gastrocolic ligament between the transverse colon and the greater curvature of the stomach with the ultrasonic device to enter the lesser sac and facilitate the ligation of the short gastric vessels. I started at a mid-point along the greater curvature and using the Thunderbeat, all short gastric vessels were divided all the way to the angle of His until the left mikayla was completely dissected at its entirety. I then divided the gastro-colic ligament distally to a distance of about 3-4 cm proximal to the pylorus. The stomach was then divided transversely with one Endo COLLEEN-45 purple,and four COLLEEN-60 articulating orange loads using the AEON stapler and loads. Every effort was made that the gastric sleeve had a tubular shape and an even caliber throughout. Once the sleeve resection was completed, the staple line of the gastric sleeve was reinforced with Hemoclips. The resected stomach was retrieved without difficulty from the Monica port. A gastropexy was then performed in order to prevent postoperative GERD and partial gastric volvulus. Several interrupted 2.0 Surgidac sutures were placed between the sleeve's staple line and the previously divided greater omentum and gastro-colic ligament using the Endo-Stitch device. ?An upper endoscopy was performed. There was no narrowing at the GE junction. The scope was easily advanced all the way to the pylorus which was clearly visualized. There was no narrowing anywhere and the sleeve's caliber was even throughout. The sleeve's staple line was inspected and there was no evidence of ischemia, bleeding or dehiscence. At that point the gastroscope was withdrawn from the patient?s mouth while we were decompressing the bowel and the stomach from any remaining air. I looked into the lesser sac to see how the sleeve was situating and it was situating well. There was no bleeding from the staple line, spleen, or short gastric vessels. The Mediflex retractor was removed, and the undersurface of the liver was inspected and there was no bleeding. The patient was placed in supine position. I closed the fascial defect of the 12 mm port site with a figure of eight #1 Polysorb suture. Then 30cc Ropivacaine plain with 10 mg of Dexamethasone were used to infiltrate the fascial closure as well as all skin incisions. A total of 7ml of Zynrelef was applied in the Monica wound. At this point, the abdomen was deflated, all ports were removed under direct vision, and no bleeding was noted from any of the port sites. The skin incisions were irrigated with saline and were closed with 4-0 absorbable monofilament sutures. Steri-Strips and OpSites were used to cover all incisions. The patient was extubated and was transferred in stable condition to the recovery room for further care. I was present and performed all carrillo parts of the?procedure. Ms. Bean was the pizza hut assistant. There were no residents to assist with this case. Paresh Hidalgo MD, PhD, FACS Surgeon: Efrain Hidalgo MD Anesthesia: GETA, local and other (TAP block and 7ml Zynrelef) Was an Electrical Calibrator used for this Procedure?: No Electrical Calibrator: Taylor Bean Estimated blood loss (mL): 10 IV fluids (mL): 2,000 Urine output (mL): 0 (No Merrill to record) Pathology: other (Stomach) Condition: stable Disposition: PACU
--- NOTE | 2022-11-30 10:22 | PM.PNGS ---
Subjective Subjective Date of Service: 12/01/22 Interval history: Feels well. Mild incisional pain. She is tolerating phase 1 bariatric diet Physical Exam Vital Signs: Vital Signs: Last Vital Signs Temp 97.6 F 11/30/22 08:47 Pulse 96 11/30/22 08:47 Resp 17 11/30/22 08:47 BP 113/68 11/30/22 08:47 Pulse Ox 96 11/30/22 08:47 O2 Del Method 11/30/22 08:47 BMI result Body Mass Index 54.1 GI: Inspection: Yes normal to inspection, Yes incision (clean, dry and intact) and Yes obesity Palpation (GI): Soft to palpation Extrem: Right lower extremity: normal to inspection (no calf tenderness) Left lower extremity: normal to inspection (no calf tenderness) Objective Data Active Medications Albuterol Sulfate (Albuterol Sulfate (0.083%) 2.5 Mg/3 Ml Vial.Neb) 2.5 mg INHALE ONCE PRN PRN Reason: Shortness of Breath/Wheezing Lactated Ringer's (Lr) 1,000 mls @ 100 mls/hr IVCONT .Q10H GAGAN Lactated Ringer's (Lr) 1,000 mls @ 999 mls/hr IV .Q1H1M GAGAN Stop: 11/30/22 10:30 Last Admin: 11/30/22 09:26 Dose: 999 mls/hr Documented By: JONATHAN Labs 11/24/22 08:18 11/24/22 08:18 Labs: Laboratory Results - last 24 hr 11/29/22 12:47 COVID-19 (OJ) Negative COVID-19 Clin Com See Note Procedures Date of Service Date of Service: 12/01/22 Progress Note: A&P Assessment and plan (1) Morbid obesity: Status: Acute Assessment and Plan: s/p laparoscopic sleeve gastrectomy and gastropexy Doing well Will check am labs and if OK the patient will be discharged home (2) SUMIT on CPAP: Status: Acute (3) HTN (hypertension), benign: Status: Acute (4) Arthritis: Status: Acute (5) Asthma: Status: Acute (6) GERD (gastroesophageal reflux disease): Status: Acute (7) Steatosis, liver: Status: Acute (8) S/P laparoscopic sleeve gastrectomy: Status: Acute Time Spent With Patient Time: Total time managing care of this patient today ____ minutes. Quality Stroke Does the patient have a stroke diagnosis?: No VTE Prior VTE?: No VTE Risk Level:: Surgical - moderate VTE Device Contraindication: N/A - Device Ordered VTE Drug Contraindication: Treatment Not Indicated
--- NOTE | 2022-11-30 13:05 | PHA.MEDREC ---
Pharmacy Consult ? Medication Reconciliation RN has completed the medication reconciliation, pharmacy reviewed.
--- NOTE | 2022-11-30 13:15 | P.DS_ITS ---
DS: Providers Provider Date of Service: 12/01/22 Date of admission: 11/30/22 08:21 Primary care physician: Moni Green MD DS: Diagnosis Discharge Diagnosis (1) Morbid obesity: Status: Acute (2) SUMIT on CPAP: Status: Acute (3) HTN (hypertension), benign: Status: Acute (4) Arthritis: Status: Acute (5) Asthma: Status: Acute (6) GERD (gastroesophageal reflux disease): Status: Acute (7) Steatosis, liver: Status: Acute DS: Summary Hospital Course Hospital Course: ADMITTING DIAGNOSIS: morbid obesity, SUMIT, HTN, GERD DISCHARGE DIAGNOSIS: same, s/p laparoscopic sleeve gastrectomy PAST SURGICAL HISTORY: , hysterectomy, cholecystectomy PROCEDURE: upper endoscopy, laparoscopic sleeve gastrectomy and repair of diaphragmatic hernia hernia DISCHARGE SUMMARY: History of Present Illness: The patient is a 42 year-old woman with a BMI of 59.3 kg/m2 and associated co- morbidities as described above. The patient had extensive work-up, lost 28.8lbs preoperatively and was electively scheduled for laparoscopic, possible open sleeve gastrectomy and gastropexy. Risks and complications of the surgery were discussed with the patient in advance, particularly the possibility of , pulmonary embolism, anastomotic leak, bleeding, bowel injury, GERD, cardiac, renal or pulmonary complications. The patient understood all the risks and was in agreement with the surgical plan. Hospital Course: The patient underwent an uneventful laparoscopic sleeve gastrectomy with gastropexy on the day of admission. Postoperatively, the patient was transferred to the surgical floor. The patient received IV Acetaminophen and IV dilaudid for pain control. Patient was started on bariatric phase 1 diet POD #0. On postoperative day one, the patient was feeling well without nausea, vomiting, fevers, or tachycardia. The patient had some mild incisional pain and the abdomen was soft. On the morning of postoperative day one, the patient was continued on 1 ounce of water or ice every half hour. During the day, the patient did fairly well, having some incisional pain, but able to ambulate adequately and to tolerate liquids well. Since the patient is doing well, we decided that the patient was ready to be discharged. The patient was given instructions to follow-up with me next week and to call my office for any fever over 101, persistent abdominal pain, nausea, vomiting, GERD, symptoms of DVT such as calf tenderness, or leg swelling, or pulmonary embolism such as chest pain or shortness of breath. The patient was also instructed to drink 40-60 ounces of liquids per day using the 1-ounce cups. The patient had been given prescriptions for Tylenol for pain, Zofran prn for nausea, and pantoprazole and carafate previously. The patient was encouraged to ambulate and use the incentive spirometer. The patient was allowed to shower, but no baths, and encouraged to stay active at home. All of these instructions were given to the patient personally. All questions were answered and the patient understood all instructions, the instructions were also given to the patient in print. Time Spent with Patient Time attestation: Total time managing care of this patient today ____ minutes. Discharge coordination time: Less than 30 minutes Quality: Safe Use of Opioids Does Pt have an Active Cancer Diagnosis on the Problem List?: No Quality: Stroke Does the patient have a stroke diagnosis?: No Physical Exam Vital Signs: Vital Signs: Last Vital Signs Temp 97.4 F 11/30/22 13:11 Pulse 102 H 11/30/22 13:11 Resp 16 11/30/22 13:11 BP 148/84 H 11/30/22 13:11 Pulse Ox 99 11/30/22 13:11 O2 Del Method 11/30/22 13:11 O2 Flow Rate 6 11/30/22 13:11 BMI result Body Mass Index 54.1 DS: Data Data Completed and Pending Pending studies at discharge: Pending at discharge 11/30/22 12:23 Surgical [PTH] Routine Labs on day of discharge: Laboratory Results - last 24 hr 11/29/22 12:47 COVID-19 ([facility]) Negative COVID-19 Clin Com See Note Discharge Plan Discharge Anticipated Discharge Date/Time: 12/01/22 10:12 Patient Disposition: Home, Self-Care Discharge Diagnosis: s/p sleeve gastrectomy Referrals: Moni Green MD [Primary Care Provider] - 1 Week Discharge Medications: Continued cyclobenzaprine 10 mg tablet 10 mg PO BEDTIME PRN (Reason: muscle spasms) budesonide-formoterol [Symbicort] 160-4.5 mcg/actuation HFA aerosol inhaler 2 puff inhalation BID fluticasone propionate [Flovent HFA] 220 mcg/actuation HFA aerosol inhaler 1 puff inhalation BID cetirizine 10 mg tablet 10 mg PO DAILY ipratropium-albuterol 0.5 mg-3 mg(2.5 mg base)/3 mL solution for nebulization 3 ml inhalation QID pantoprazole 40 mg tablet,delayed release (DR/EC) 40 mg PO DAILY Qty: 30 2RF Held amlodipine 5 mg tablet 5 mg PO DAILY Hold Instructions: Resume on 12/02/22. Send blood pressure every night to Dr. Hidalgo. Don't take the medication before he gets back to you. Don't take the medication if blood pressure is below 110/70 mmHg Discontinued cholecalciferol (vitamin D3) 50 mcg (2,000 unit) capsule 50 mcg PO DAILY Qty: 30 6RF thiamine HCl (vitamin B1) 50 mg tablet 50 mg PO DAILY Qty: 30 6RF docusate sodium 100 mg capsule 1 cap PO BID PRN (Reason: Constipation) naproxen sodium 220 mg tablet 220 mg PO BID PRN (Reason: pain) sennosides [senna] 8.6 mg tablet 8.6 mg PO BID PRN (Reason: constipation) Discharge Orders: Discharge Order (Routine); Ordered 12/01/22 Ordered By: Efrain Hidalgo Activity on Discharge: As tolerated Stand Alone Forms: Patient Portal Discharge page Care Plan Goals: weight loss Health Concerns: morbid obesity Plan of Treatment: No tub baths, sex or returning to work until discussed at first post op appointment. No exercise, alcohol, tobacco or illegal drug use. Continue to use incentive spirometer hourly while awake. Walk in home for 5- 10 minutes every 2 hours during the first week. Continue phase 1 diet today and start phase 2 diet tomorrow morning. Follow all instructions in the bariatric handbook and call with any questions. 1. Please call your doctor or come back to the emergency room should any new symptoms arise. 2. You will receive a courtesy call from [facility] 24-48 hours after discharge. 3. Activity: abstain from alcohol, practice limited stair climbing, no bending, no driving, no exercise, no illicit substances, no lifting, no sex, no tub bath, no work. 4. Diet: continue as discussed with bariatric team.. 5. Dressing Change/Wound Care: Do not change or remove surgical dressings unless they are wet or soiled. 6. Call your doctor if: - Your temperature exceeds 101.5 F - You experience excessive pain or swelling - You have an unexpected reaction to medication - You have excessive bleeding - You experience continued vomiting/nausea - Your incision begins to separate - Your incision shows signs of infection such as increased redness, swelling, excessive pain, heat, or drainage (light blood or clear fluid is normal) 7. General instructions: No lifting greater than 5 lbs for the next 4 weeks[address] within 24 hours of taking narcotic pain medications. If you do not move your bowels in the next 2 days, please take milk of magnesia over the counter. Please follow the post op diet and do not advance your diet until you are seen in the office in about 2 weeks. Please walk around your home every hour or two to prevent blood clots from forming in your legs. You do not need to wake from sleeping to walk. Please sleep in a bed or couch to prevent kinking at the hips and knees. Please take your incentive spirometer (your lung electronic court recorder) home with you and use it for the next few days to prevent pneumonias. You may shower, no hot tubs, baths or swimming pools. Please call the office with any questions or concerns such as increasing abdominal pain, fever, chills, shortness of breath, chest pain, leg pain or swelling, or redness or drainage from your incisions. Do not hesitate to contact the office with any questions at . The patient's medical history has been reviewed and they are considered low risk for post op DVT and therefore DVT prophylaxis is not considered necessary. Travel after surgery was reviewed. The patient has not disclosed any travel plans during the first 30 days after surgery and they have been advised that within the first 30 days after surgery any bus, plane, train or car travel over 2 hours in duration is contraindicated due to the possibility of developing blood clots from immobility. Any travel, needs to include periods of ambulation of 10 minutes in duration every 2 hours. The patient was instructed to discuss any plans for travel during this period with their bariatric surgeon. Assessment: stable post op sleeve gastrectomy
[2022-11-30] MEDS: Famotidine/PF 20 MG/2 ML VIAL IVPUSH ×2 (13:36→20:53)
[2022-11-30 14:01] LABS: Hematocrit 43.2 % (37.0-47.0); Hemoglobin 13.8 g/dl (12.0-16.0)
[2022-11-30] MEDS: Lactated Ringers 1,000 ML 100 ML IVCONT ×2 (14:14→23:20)
[2022-11-30 14:16] LABS: Anion Gap 16 (12-20); Blood Urea Nitrogen 8 mg/dL (9-16); Calcium 8.9 mg/dL (8.4-10.2); Carbon Dioxide 26 mmol/L (22-29); Chloride 101 mmol/L (96-108); Creatinine Clr Calc Pharmacy 133.7; Estimated Glomerular Filt Rate > 60; Glucose Random 154 mg/dL (60-115); Potassium 3.5 mmol/L (3.3-5.1); Sodium 139 mmol/L (135-145)
[2022-11-30] MEDS: ceFAZolin Sodium/Dextrose,Iso 2 GM/50 ML PIGGYBACK IV (16:12)
[2022-11-30] MEDS: Acetaminophen 1,000 MG/100 ML PIGGYBACK 16.7 MG IV ×2 (17:10→20:53)
[2022-11-30] MEDS: Fluticasone Propionate 100 MCG BLST.W.DEV 1 PUFF INHALE (19:21)
[2022-11-30] MEDS: ondansetron HCL 4 MG/2 ML VIAL IVPUSH (20:53)
[2022-11-30] MEDS: 0.9 % Sodium Chloride Flush 3 ML SYRINGE IVFLUSH (20:54)
[2022-12-01] MEDS: Acetaminophen 1,000 MG/100 ML PIGGYBACK 16.7 MG IV (02:46)
[2022-12-01 03:16] VITALS: BP 107/66; PULSE 91; RESP 18; TEMP 36.3; O2SAT 95
[2022-12-01] MEDS: ondansetron HCL 4 MG/2 ML VIAL IVPUSH (05:02)
[2022-12-01 06:49] LABS: MANUAL DIFF FLAG NO
[2022-12-01 06:55] LABS: Basophils Percent Auto 0.1 % (0-2); Hemoglobin 11.9 g/dl (12.0-16.0); Imm Gran Abs Auto 0.03 X10*3/uL (0.00-0.03); Imm Gran Pct Auto 0.3 % (0.0-0.4); Lymphocytes Absolute Auto 1.1 X10*3/uL (1.2-4.9); Lymphocytes Percent Auto 12.7 % (20-40); Mean Corpuscular HGB Conc 31.3 g/dl (31.0-35.0); Mean Corpuscular Hemoglobin 25.8 pg (27.0-33.0); Mean Corpuscular Volume 82.4 fL (80.0-98.0); Mean Platelet Volume 11.9 fL (9.4-12.3); Monocytes Absolute Auto 0.5 X10*3/uL (0.1-1.2); Neutrophils Absolute Auto 7.3 x10*3/uL (2.0-8.3); Neutrophils Percent Auto 80.9 % (45-73); Platelet Count 263 X10*3/uL (160-400); Red Blood Count 4.61 X10*6/uL (4.20-5.50)
--- NOTE | 2022-12-01 06:55 | HO.POSTANES ---
Post Anesthesia Evaluation Post Anesthesia Evaluation Vital Signs: Vital Signs Temp Pulse Resp BP Pulse Ox O2 Del Method 12/01/22 03:16 97.4 F 91 18 107/66 95 CPAP 11/30/22 19:32 97.9 F 99 17 133/77 95 Room Air 11/30/22 19:23 87 16 Anesthesia: General Endotracheal-GETA Mental Status: Awake Pain Control: Satisfactory Nausea/Vomiting: None Hydration: Adequate Anesthesia-Related Issues: No Anes. Related Issues
[2022-12-01 07:08] VITALS: BP 130/73; PULSE 106; RESP 20; TEMP 36.1; O2SAT 96
[2022-12-01] MEDS: Famotidine/PF 20 MG/2 ML VIAL IVPUSH (07:12)
[2022-12-01 07:15] LABS: Anion Gap 16 (12-20); Blood Urea Nitrogen 7 mg/dL (9-16); Calcium 8.6 mg/dL (8.4-10.2); Carbon Dioxide 25 mmol/L (22-29); Chloride 103 mmol/L (96-108); Creatinine Clr Calc Pharmacy 133.7; Estimated Glomerular Filt Rate > 60; Glucose Random 114 mg/dL (60-115); Potassium 4.4 mmol/L (3.3-5.1); Sodium 140 mmol/L (135-145)
[2022-12-01] MEDS: Fluticasone Propionate 100 MCG BLST.W.DEV 1 PUFF INHALE (07:34)
[2022-12-01 07:35] VITALS: PULSE 88; RESP 16; O2SAT 95
[2022-12-01] MEDS: amLODIPine Besylate 5 MG TABLET PO (08:22)
--- NOTE | 2022-12-01 09:25 | MHC.CM.PN ---
PATIENT WAS LEAVING THE UNIT CASE MANAGEMENT ATTEMPTED TO SECURE INFORMATION FOR ASSESSMENT. RN STATES THAT PATIENT IS INDEPENDENT AND HAS NO VNA OR DME NEEDS. NO HCP ON FILE. PCP IS LISTED IN DEMOGRAPHICS
== END 2022-12-01 09:24 | disposition home or self-care (01) | DRG 403 ==
LOC: HO.SSSA 13:15 → HO.S3 15:10
PROVIDERS: Physician Assistant; Physician Assistant Surgical; Admitting Provider Surgery; PCP Internal Medicine; Visit Provider Surgery
PROC: 0DB64Z3 Excision of Stomach, Percutaneous Endoscopic Approach, Vertical (ICD-10-PCS; CPT 43845; principal; 2022-11-30 10:30)
DX: E66.01 Morbid (severe) obesity due to excess calories (principal); K76.0 Fatty (change of) liver, not elsewhere classified; G47.33 Obstructive sleep apnea (adult) (pediatric); K21.9 Gastro-esophageal reflux disease without esophagitis; Z68.43 Body mass index [BMI] 50.0-59.9, adult; J45.909 Unspecified asthma, uncomplicated; M19.90 Unspecified osteoarthritis, unspecified site; Z20.822 Contact with and (suspected) exposure to COVID-19; Z79.51 Long term (current) use of inhaled steroids; Z79.899 Other long term (current) drug therapy
CPT/HCPCS: 36415; 80048; 80053; 80061; 83036; 83525; 84443; 85014; 85018; 85025; 85610; 85730; 86140; 86850; 86900; 86901; 87635; 88307; 88342; 94640; A4649; C9088; J0131; J0690; J1100; J1170; J2250; J2405; J2795; J3010

== ENCOUNTER → 2022-12-07 13:34 | Outpatient (BNVA) | payer MEDICAID, SELFPAY | PROVIDERS: PCP Internal Medicine; Visit Provider Physician Assistant Surgical | DX: Z13.89 Encounter for screening for other disorder (principal) ==

== ENCOUNTER → 2022-12-20 08:01 | Outpatient (BNVA) | payer MEDICAID, SELFPAY | PROVIDERS: PCP Internal Medicine; Referring Provider Internal Medicine; Visit Provider Physician Assistant | DX: Z13.89 Encounter for screening for other disorder (principal) ==

== ENCOUNTER → 2022-12-24 12:52 | Outpatient (BNVA) | payer MEDICAID, SELFPAY | PROVIDERS: PCP Internal Medicine; Visit Provider Physician Assistant | DX: Z13.89 Encounter for screening for other disorder (principal) ==

== ENCOUNTER → 2023-01-06 08:21 | Outpatient (BNVA) | payer MEDICAID, SELFPAY | PROVIDERS: PCP Internal Medicine; Visit Provider Physician Assistant | DX: Z13.89 Encounter for screening for other disorder (principal) ==

== ENCOUNTER → 2023-02-18 12:36 | Outpatient (BNVA) | payer MEDICAID, SELFPAY | PROVIDERS: PCP Internal Medicine; Visit Provider Physician Assistant ==

== ENCOUNTER → 2023-04-29 10:11 | Outpatient (BNVA) | payer MEDICAID, SELFPAY | PROVIDERS: Visit Provider Physician Assistant | DX: E66.01 Morbid (severe) obesity due to excess calories (principal); Z98.84 Bariatric surgery status; Z68.41 Body mass index [BMI] 40.0-44.9, adult | CPT/HCPCS: 99212 ==

== ENCOUNTER 2023-05-19 10:50 | Outpatient (REF) | payer MEDICAID, SELFPAY ==
[2023-05-19 11:43] LABS: MANUAL DIFF FLAG NO
[2023-05-19 12:07] LABS: Basophils Percent Auto 0.2 % (0-2); Eosinophils Absolute Auto 0.1 X10*3/uL (0.0-0.4); Eosinophils Percent Auto 1.1 % (0-4); Hematocrit 40.3 % (37.0-47.0); Hemoglobin 12.7 g/dl (12.0-16.0); Imm Gran Abs Auto 0.03 X10*3/uL (0.00-0.03); Imm Gran Pct Auto 0.4 % (0.0-0.4); Lymphocytes Absolute Auto 1.1 X10*3/uL (1.2-4.9); Lymphocytes Percent Auto 12.9 % (20-40); Mean Corpuscular HGB Conc 31.5 g/dl (31.0-35.0); Mean Corpuscular Hemoglobin 26.6 pg (27.0-33.0); Mean Corpuscular Volume 84.3 fL (80.0-98.0); Mean Platelet Volume 11.9 fL (9.4-12.3); Monocytes Absolute Auto 0.5 X10*3/uL (0.1-1.2); Monocytes Percent Auto 5.9 % (2-11); Neutrophils Absolute Auto 6.5 x10*3/uL (2.0-8.3); Neutrophils Percent Auto 79.5 % (45-73); Platelet Count 191 X10*3/uL (160-400); Red Blood Count 4.78 X10*6/uL (4.20-5.50); Red Cell Distribution Width 13.3 % (11.0-16.0); White Blood Count 8.1 X10*3/uL (4.8-10.8)
[2023-05-19 12:22] LABS: Estimated Average Glucose 100 mg/dL; Hemoglobin A1c % 5.1 %
[2023-05-19 12:51] LABS: Alanine Aminotransferase 48 U/L (0-31); Albumin Level 3.9 g/dL (3.5-5.0); Alkaline Phosphatase 92 U/L (39-117); Anion Gap 13 (12-20); Aspartate Amino Transferase 64 U/L (5-31); Bilirubin Total 0.8 mg/dL (0.0-1.0); Blood Urea Nitrogen 14 mg/dL (9-16); C Reactive Protein 0.79 mg/dL (< or = 0.50); Calcium 9.8 mg/dL (8.4-10.2); Carbon Dioxide 28 mmol/L (22-29); Chloride 104 mmol/L (96-108); Cholesterol 153 mg/dL; Estimated Glomerular Filt Rate > 60; Glucose Random 100 mg/dL (60-115); HDL Cholesterol 67 mg/dL; Iron 54 mcg/dL (30-160); LDL Cholesterol Calculated 76 mg/dl; Percent Iron Saturation 24 % (15-50); Potassium 4.1 mmol/L (3.3-5.1); Sodium 141 mmol/L (135-145); Total Iron Binding Capacity 226 mcg/dL (228-428); Total Protein 7.5 g/dL (6.5-8.0); Triglycerides 54 mg/dL; Unsaturated Iron Binding 172 ug/dL
[2023-05-19 12:54] LABS: Anion Gap 11 (12-20); Blood Urea Nitrogen 14 mg/dL (9-16); Calcium 9.7 mg/dL (8.4-10.2); Carbon Dioxide 29 mmol/L (22-29); Chloride 105 mmol/L (96-108); Estimated Glomerular Filt Rate > 60; Glucose Random 99 mg/dL (60-115); Phosphorus 3.2 mg/dL (2.7-4.5); Potassium 4.1 mmol/L (3.3-5.1); Sodium 141 mmol/L (135-145)
[2023-05-19 13:00] LABS: Ferritin 563 ng/mL (10-250); Insulin 15 uU/mL (2-29); TSH reflex Free T4 0.94 uIU/mL (0.32-4.0); Vitamin D 25-OH Total 21.4 ng/mL (>30); Vitamin D 25-OH Total 22.4 ng/mL (>30)
[2023-05-19 13:06] LABS: Folate 11.7 ng/mL (> or = 4.0); Vitamin B12 532 pg/mL (200-900)
[2023-05-19 14:45] LABS: Creatinine Urine 150.65 mg/dL; Protein/Creatinine Ratio, Ur 0.09 (<0.2); Total Protein Urine Random 14 mg/dL (<12)
[2023-05-20 17:43] LABS: Calcium (PTHI) 9.2 mg/dL (8.6-10.2); PTHI 55 pg/mL (16-77)
[2023-05-24 15:53] LABS: Vitamin B1 9 nmol/L (8-30)
[2023-05-24 16:53] LABS: Zinc 45 mcg/dL (60-130)
[2023-05-26 11:08] LABS: Vitamin A 30 mcg/dL (38-98)
== END 2023-05-19 10:51 | disposition home or self-care (01) ==
LOC: HO.LAB 10:50
PROVIDERS: Absent Provider Internal Medicine; PCP Internal Medicine; Visit Provider Physician Assistant
DX: E66.01 Morbid (severe) obesity due to excess calories (principal); K21.9 Gastro-esophageal reflux disease without esophagitis; K76.0 Fatty (change of) liver, not elsewhere classified; E11.9 Type 2 diabetes mellitus without complications; E21.3 Hyperparathyroidism, unspecified; Z98.84 Bariatric surgery status
CPT/HCPCS: 36415; 80048; 80053; 80061; 82306; 82607; 82728; 82746; 83036; 83525; 83540; 83970; 84100; 84156; 84425; 84443; 84590; 84630; 85025; 86140

== ENCOUNTER 2023-07-08 08:32 | Outpatient (REF) | payer MEDICAID, SELFPAY ==
--- NOTE | ~2023-07-08 | US_ITS ---
EXAMINATION: US ABDOMEN LIMITED CLINICAL INFORMATION: Nonalcoholic steatohepatitis. COMPARISON: Ultrasound abdomen complete 10/07/2022. CT abdomen and pelvis 09/13/2018. TECHNIQUE: Real-time imaging of the right upper quadrant abdominal viscera. FINDINGS: PANCREAS: Normal. LIVER: The liver is normal in size. The liver contour is normal. The liver echotexture is within normal limits. No focal hepatic lesion. There is no intrahepatic biliary duct dilatation seen. GALLBLADDER: Surgically absent. COMMON BILE DUCT: Normal in caliber measuring 0.8 cm in diameter. RIGHT KIDNEY: There is a 1.8 cm cyst upper pole right kidney. There is a 4 mm calculus midpole right kidney. No hydronephrosis or focal parenchymal lesions. The kidney measures 12.8 cm in maximum dimension. FREE FLUID: None. US/US abdomen limited IMPRESSION: 1. Prior cholecystectomy. No biliary dilatation. 2. Nonobstructing 4 mm calculus midpole right kidney.
== END 2023-07-08 08:33 | disposition home or self-care (01) ==
LOC: HO.US 08:32
PROVIDERS: PCP Internal Medicine; Visit Provider Internal Medicine
DX: K75.81 Nonalcoholic steatohepatitis (NASH) (principal)
CPT/HCPCS: 76705

== ENCOUNTER 2023-07-29 09:02 | Outpatient (REF) | payer MEDICAID, SELFPAY | END 2023-07-29 09:03 | disposition home or self-care (01) | LOC: HO.MAMMO 09:02 | PROVIDERS: PCP Internal Medicine; Visit Provider Internal Medicine | DX: Z12.31 Encounter for screening mammogram for malignant neoplasm of breast (principal) | CPT/HCPCS: 77063; 77067 ==

== ENCOUNTER → 2023-07-29 09:15 | Outpatient (BNV) | payer MEDICAID, SELFPAY | PROVIDERS: PCP Internal Medicine; Visit Provider Radiology Diagnostic Radiology | DX: Z12.31 Encounter for screening mammogram for malignant neoplasm of breast (principal) | CPT/HCPCS: 77063; 77067 ==

== ENCOUNTER 2023-11-17 15:05 | Outpatient (REF) | payer MEDICAID, SELFPAY ==
[2023-11-17 16:43] LABS: Anion Gap 14 (12-20); Blood Urea Nitrogen 18 mg/dL (9-16); Calcium 9.7 mg/dL (8.4-10.2); Carbon Dioxide 30 mmol/L (22-29); Chloride 106 mmol/L (96-108); Estimated Glomerular Filt Rate > 60; Glucose Random 98 mg/dL (60-115); Phosphorus 4.6 mg/dL (2.7-4.5); Potassium 4.8 mmol/L (3.3-5.1); Sodium 145 mmol/L (135-145)
[2023-11-17 16:50] LABS: Creatinine Urine 128.56 mg/dL; Microalbum/Creatinine Ratio Ur 8.5 ug/mg cr (<30)
[2023-11-17 16:51] LABS: Vitamin D 25-OH Total 21.5 ng/mL (>30)
== END 2023-11-17 15:06 | disposition home or self-care (01) ==
LOC: HO.HHCL 15:05
PROVIDERS: Visit Provider Internal Medicine
DX: E11.9 Type 2 diabetes mellitus without complications (principal); E21.3 Hyperparathyroidism, unspecified
CPT/HCPCS: 36415; 80048; 82043; 82306; 82570; 84100

== ENCOUNTER 2023-11-30 08:04 | Outpatient (REF) | payer MEDICAID, SELFPAY ==
[2023-11-30 12:17] LABS: Parathyroid Hormone Intact 90.1 pg/mL (8.7-77.1)
[2023-11-30 12:24] LABS: Anion Gap 12 (12-20); Blood Urea Nitrogen 16 mg/dL (9-16); Calcium 8.9 mg/dL (8.4-10.2); Carbon Dioxide 28 mmol/L (22-29); Chloride 105 mmol/L (96-108); Estimated Glomerular Filt Rate > 60; Glucose Random 95 mg/dL (60-115); Phosphorus 3.5 mg/dL (2.7-4.5); Potassium 4.2 mmol/L (3.3-5.1); Sodium 141 mmol/L (135-145)
[2023-11-30 12:30] LABS: TSH reflex Free T4 1.58 uIU/mL (0.32-4.0)
== END 2023-11-30 08:05 | disposition home or self-care (01) ==
LOC: HO.HHCL 08:04
PROVIDERS: Visit Provider Internal Medicine
DX: E21.3 Hyperparathyroidism, unspecified (principal); E11.9 Type 2 diabetes mellitus without complications
CPT/HCPCS: 36415; 80048; 83970; 84100; 84443

== ENCOUNTER 2023-12-27 22:53 | Emergency (ER) | payer MEDICAID, SELFPAY ==
--- NOTE | ~2023-12-27 | CT_ITS ---
EXAMINATION: CT ABDOMEN AND PELVIS WITHOUT CONTRAST CLINICAL INFORMATION: Right flank pain. COMPARISON: Correlation made with ultrasound performed 07/08/2023. TECHNIQUE: Multidetector volumetric imaging was performed from the superior aspect of the liver through the pubic symphysis. Sagittal and coronal reformatted images were obtained on the technologist's workstation. This CT examination was performed using dose optimization techniques as appropriate, variously including the following: *Automated exposure control *Adjustment of mA and/or kV according to patient size (this includes techniques or standardized protocols for targeted exams where dose is matched to indication/reason for exam; i.e. extremities or head) *Use of iterative reconstruction technique DLP: 937 mGy-cm FINDINGS: LUNG BASES: The visualized lung bases are unremarkable. LIVER, GALLBLADDER, AND BILIARY TREE: The liver is normal in size, shape, and attenuation. No focal hepatic lesion or biliary ductal dilatation is present. There has been a prior cholecystectomy. PANCREAS: Unremarkable. SPLEEN: Unremarkable. ADRENAL GLANDS: Unremarkable. KIDNEYS AND URETERS: The kidneys are normal in size, shape, and attenuation. There is a 1.3 cm hypodensity upper pole left kidney with low attenuation values most consistent with that of a cyst. There is a 2.3 cm intermediate density structure upper pole of the right kidney. There is mild right perinephric stranding. There is mild right hydronephrosis and mild proximal right hydroureter to the level of a 4 mm proximal right ureteric calculus. BLADDER: Unremarkable. GASTROINTESTINAL TRACT: The small and large bowel are unremarkable. The appendix is unremarkable. ABDOMINAL WALL: No significant hernia is appreciated. LYMPH NODES: Normal. VASCULAR: Unremarkable. PELVIC VISCERA: Unremarkable. OSSEOUS STRUCTURES: Unremarkable. CT/CT abdomen pelvis wo IV con IMPRESSION: 4 mm proximal right ureteric calculus with mild right hydronephrosis and perinephric stranding. 2.3 cm intermediate density structure upper pole of the right kidney. This was seen on prior ultrasound as a cyst. Fleischner guidelines were followed.
[2023-12-27 23:23] VITALS: BP 140/91; PULSE 92; RESP 18; TEMP 36.6; O2SAT 100; BMI 50.3
[2023-12-27 23:34] LABS: Basophils Percent Auto 0.3 % (0-2); Eosinophils Absolute Auto 0.1 X10*3/uL (0.0-0.4); Eosinophils Percent Auto 2.1 % (0-4); Hematocrit 38.9 % (37.0-47.0); Hemoglobin 12.2 g/dl (12.0-16.0); Imm Gran Abs Auto 0.01 X10*3/uL (0.00-0.03); Imm Gran Pct Auto 0.1 % (0.0-0.4); Lymphocytes Absolute Auto 2.5 X10*3/uL (1.2-4.9); Lymphocytes Percent Auto 37.1 % (20-40); MANUAL DIFF FLAG NO; Mean Corpuscular HGB Conc 31.4 g/dl (31.0-35.0); Mean Corpuscular Hemoglobin 26.4 pg (27.0-33.0); Mean Corpuscular Volume 84.2 fL (80.0-98.0); Mean Platelet Volume 11.4 fL (9.4-12.3); Monocytes Absolute Auto 0.4 X10*3/uL (0.1-1.2); Neutrophils Absolute Auto 3.6 x10*3/uL (2.0-8.3); Neutrophils Percent Auto 54.4 % (45-73); Platelet Count 200 X10*3/uL (160-400); Red Blood Count 4.62 X10*6/uL (4.20-5.50); Red Cell Distribution Width 13.2 % (11.0-16.0); White Blood Count 6.7 X10*3/uL (4.8-10.8)
[2023-12-27 23:48] LABS: Alanine Aminotransferase 27 U/L (0-31); Alkaline Phosphatase 95 U/L (39-117); Anion Gap 14 (12-20); Aspartate Amino Transferase 25 U/L (5-31); Bilirubin Direct < 0.2 mg/dL (0.0-0.5); Bilirubin Total 0.2 mg/dL (0.0-1.0); Blood Urea Nitrogen 17 mg/dL (9-16); Calcium 8.8 mg/dL (8.4-10.2); Carbon Dioxide 29 mmol/L (22-29); Chloride 107 mmol/L (96-108); Creatinine Clr Calc Pharmacy 130.7; Estimated Glomerular Filt Rate > 60; Glucose Random 122 mg/dL (60-115); Lipase 49 U/L (8-78); Potassium 4.1 mmol/L (3.3-5.1); Sodium 146 mmol/L (135-145)
[2023-12-28 01:29] LABS: HCG Quantitative 3 mIU/mL
[2023-12-28 01:44] LABS: Appearance Urine Cloudy; Color Urine Yellow; Glucose Urine UA Negative (Negative); Leukocyte Esterase Urine Trace (Negative); Nitrite Urine Negative (Negative); PH 5.5 (5.0-9.0); Specific Gravity - Urine >= 1.030 (1.005-1.025); UMIC TRIGGER UACC YES; Urine Blood Large (3+) (Negative); Urine Ketones Trace mg/dL (Negative); Urine Protein Trace mg/dL (Neg-Trace)
[2023-12-28 01:46] LABS: Bacteria Urine 1+ (None Seen); RBC Urine >20 /HPF (0-2); UACC Culture Trigger YES
[2023-12-28 02:39] VITALS: BP 119/70; PULSE 80; RESP 18; TEMP 36.7; O2SAT 100
--- NOTE | 2023-12-28 03:38 | ED.ABDPAIN ---
HPI - Abdominal Pain General Chief Complaint: Abdominal Pain Stated Complaint: lwr rt abd pain goes to her back Time Seen by Provider: 12/28/23 03:19 Source: patient, family and application software engineer Mode of arrival: ambulatory Limitations: no limitations History of Present Illness HPI narrative: 43-year-old female came in for evaluation of right side abdominal and right flank pain started around 22:00 last night as a sudden onset. Pain has been constant since it started described as severe 10/10 associated with nausea and vomiting no clear aggravating or relieving factors. No fever, no chills. Patient had history of gastric bypass, hysterectomy, and cholecystectomy. Patient declined history of dysuria, hematuria. Related Data Home Medications Medication Instructions Recorded Confirmed budesonide-formoterol HFA 160 2 puff inhalation BID 07/14/22 04/29/23 mcg-4.5 mcg/actuation aerosol inhaler (Symbicort) cetirizine 10 mg tablet 10 mg PO DAILY 07/14/22 04/29/23 fluticasone propionate 220 1 puff inhalation BID 07/14/22 04/29/23 mcg/actuation HFA aerosol inhaler (Flovent HFA) ipratropium 0.5 mg-albuterol 3 mg 3 ml inhalation QID 07/14/22 04/29/23 (2.5 mg base)/3 mL nebulization soln Previous Rx's Medication Instructions Recorded inulin 2 gram chewable tablet 2 g PO BID #60 tabs 01/06/23 (Fiber Gummies) inulin 2,500 mg-vitamin D3 500 1 tab PO BID #60 tabs 01/06/23 unit chewable tablet (Fiber Gummies with Vitamin D3) calcium citrate 315 mg-vitamin D3 1 tab PO BID #60 tabs 02/18/23 5 mcg (200 unit) tablet (Calcium Citrate + D) docusate sodium 100 mg capsule 100 mg PO BID #60 caps 02/18/23 (Colace) cholecalciferol (vitamin D3) 25 25 mcg PO DAILY #30 caps 05/20/23 mcg (1,000 unit) capsule vitamin A palmitate 3,000 mcg 3,000 mcg PO DAILY #30 tabs 06/06/23 (10,000 unit) tablet zinc acetate 25 mg (zinc) capsule 25 mg PO DAILY #30 caps 06/06/23 (Galzin) oxycodone 5 mg tablet 5 mg PO Q8H PRN pain #10 tabs 12/28/23 prednisone 20 mg tablet 20 mg PO DAILY #3 tabs 12/28/23 tamsulosin 0.4 mg capsule (Flomax) 0.4 mg PO BEDTIME #10 caps 12/28/23 Allergies Allergy/AdvReac Type Severity Reaction Status Date / Time Cortisone Allergy Intermediate itching,hiv Uncoded 12/20/22 08:36 es Review of Systems Review of Systems All other systems are reviewed and are negative Constitutional: Reports as per HPI and Reports no additional constitutional complaints Eyes: Reports as per HPI and Reports no additional eye complaints Reports system reviewed and no additional complaints, except as documented Cardiovascular: Reports as per HPI and Reports no additional cardiovascular complaints Respiratory: Reports as per HPI and Reports no additional respiratory complaints Gastrointestinal: Reports as per HPI and Reports no additional gastrointestinal complaints Genitourinary: Reports no additional female genitourinary complaints Musculoskeletal: Reports no additional musculoskeletal complaints Skin/Breast: Reports system reviewed and no additional complaints, except as docu Psychiatric: Reports no additional psychiatric complaints Endocrine: Reports no additional endocrine complaints Hematologic/Lymphatic: Reports no additional hematologic/lymphatic complaints Allergic/Immunologic: Reports no additional allergic/immunologic complaints Reports system reviewed and no additional complaints, except as documented and Reports Abnormal speech present [facility] Past Medical History Medical History Steatosis, liver Arthritis GERD (gastroesophageal reflux disease) HTN (hypertension) Asthma SUMIT on CPAP Surgical History S/P laparoscopic sleeve gastrectomy H/O: hysterectomy H/O tubal ligation Hx of cholecystectomy Hx of colonoscopy Hx of section Family History Family History Mother Hypertension Father Diabetes Hypertension Heart problem Son No problems noted. Son No problems noted. Daughter No problems noted. Daughter No problems noted. Social History Social History Household Members: Family Housing: House Are you a primary career guidance technician to a significant other at home: No Do you presently have visiting nurse or other home services: No Alcohol intake: never Comment: patient wears a brace on right knee, r/t arthritis Patient Tobacco Use Status: Never used Tobacco Smoked in Last 30 Days: No Use of substances other than those prescribed or required for medical reasons: No Advance Directives: No Advance Directives Information Provided: No Patient : No Physical Exam ED Vital Signs: Vital Signs - 24 hr 12/27/23 23:23 12/28/23 02:39 12/28/23 06:30 Temperature 97.9 F 98.0 F Pulse Rate 92 80 82 Respiratory Rate 18 18 16 Blood Pressure 140/91 H 119/70 136/68 Pulse Oximetry 100 100 98 Oxygen Delivery Method Room Air Room Air Room Air BMI result Body Mass Index 50.3 Vital signs have been reviewed and appear to be correct. Blood pressure elevated. Heart rate normal. Respiratory rate normal. Temperature normal. Oxygen saturation normal. Appearance: Alert. Oriented X3. In acute distress due to right-sided abdominal pain. Head: Normal external exam. Normocephalic. Atraumatic. No Sorto signs noted. No raccoon eyes noted Eyes: PERRLA. EOMI. Conjunctiva and sclera normal. Eyelids normal. ENT: TM's Normal. Pharynx normal. Uvula midline. Moist mucous membranes. No trismus noted. No drooling noted. No muffled voice noted. Neck: Normal inspection. Neck supple. FROM. No adenopathy. Thyroid Normal. No meningeal signs. No neck mass noted. CVS: Normal heart rate and rhythm. Heart sound normal. No murmurs noted. Pulses normal throughout. Respiratory: No respiratory distress. Painless inspiration. Breath sounds normal. No wheezes/rales/rhonchi noted. Chest nontender. No accessory muscle usage noted or decreased air movement noted. Abdomen: Soft, right abdominal tenderness, no guarding, rebound tenderness, Bowel sounds normal in all 4 quadrants. No distention noted. No organomegaly noted. No visible injury noted. Back: Right CVA tenderness. Full range of motion noted. Skin: Skin warm and dry. Normal skin color. Normal skin turgor. No rashes/lesions/lacerations noted. Extremities: No lower extremity edema. Extremities exhibit normal range of motion. Extremities nontender. Neuro: Oriented X 3. Cranial nerve exam: II-XII are grossly intact No motor deficit. No sensory deficit. Reflexes normal. Course Reevaluation(s) Reevaluation #1: Right abdominal/flank pain CT abdomen revealed 4 mm right proximal ureteric stone with hydronephrosis, case discussed with Dr. Sal Huffman on-call for Urology who recommended discharge the patient home on Flomax/prednisone/PE medication and follow-up in her office in 1 week. Patient was instructed to return if the pain is worse application software engineer service was used throughout the interview. Time: 07:14 Medical Decision Making Differential Diagnosis Differential Diagnoses: The differential diagnosis associated with the presentation includes (Ureteric stone, acute appendicitis, acute colitis, acute diverticulitis, acute cholecystitis, UTI, , electrolyte derangement, severe anemia.) Admission/Observation Consideration of admission/observation: Escalation of care including admission/observation considered Consult Healthcare Provider Management of the patient was discussed with: Functional Support Analyst (Dr Huffman) Lab Data MDM Lab Attestation statement: I reviewed the patient's lab results. 12/27/23 23:29 12/27/23 23:29 Labs: Lab Results 12/27/23 12/28/23 Range/Units 23:29 01:32 WBC 6.7 (4.8-10.8) X10*3/uL RBC 4.62 (4.20-5.50) X10*6/uL Hgb 12.2 (12.0-16.0) g/dl Hct 38.9 (37.0-47.0) % MCV 84.2 (80.0-98.0) fL MCH 26.4 L (27.0-33.0) pg MCHC 31.4 (31.0-35.0) g/dl RDW 13.2 (11.0-16.0) % Plt Count 200 (160-400) X10*3/uL MPV 11.4 (9.4-12.3) fL Immature Gran % (Auto) 0.1 (0.0-0.4) % Neut % (Auto) 54.4 (45-73) % Lymph % (Auto) 37.1 (20-40) % [place] % (Auto) 6.0 (2-11) % Eos % (Auto) 2.1 (0-4) % Baso % (Auto) 0.3 (0-2) % Lymph # (Auto) 2.5 (1.2-4.9) X10*3/uL [place] # (Auto) 0.4 (0.1-1.2) X10*3/uL Eos # (Auto) 0.1 (0.0-0.4) X10*3/uL Baso # (Auto) 0.0 (0.0-0.2) X10*3/uL Abs Immat Gran (auto) 0.01 (0.00-0.03) X10*3/uL Absolute Neuts (auto) 3.6 (2.0-8.3) x10*3/uL Absolute Nucleated RBC 0.000 (0.0-0.012) X10*3/uL Nucleated RBC % (auto) 0.0 (0.0-0.2) /100WBC Sodium 146 H (135-145) mmol/L Potassium 4.1 (3.3-5.1) mmol/L Chloride 107 (96-108) mmol/L Carbon Dioxide 29 (22-29) mmol/L Anion Gap 14 (12-20) BUN 17 H (9-16) mg/dL Creatinine 0.66 (0.5-1.4) mg/dL Estim Creat Clear Calc 130.7 Estimated GFR > 60 Random Glucose 122 H (60-115) mg/dL Calcium 8.8 (8.4-10.2) mg/dL Total Bilirubin 0.2 (0.0-1.0) mg/dL Direct Bilirubin < 0.2 (0.0-0.5) mg/dL AST 25 (5-31) U/L ALT 27 (0-31) U/L Alkaline Phosphatase 95 (39-117) U/L Total Protein 8.0 (6.5-8.0) g/dL Albumin 4.0 (3.5-5.0) g/dL Lipase 49 (8-78) U/L Beta HCG, Quant 3 mIU/mL Urine Color Yellow Urine Appearance Cloudy Urine pH 5.5 (5.0-9.0) Ur Specific [place] >= 1.030 H (1.005-1.025) Urine Protein Trace (Neg-Trace) mg/dL Urine Glucose (UA) Negative (Negative) mg/dL Urine Ketones Trace (Negative) mg/dL Urine Blood Large (3+) H (Negative) Urine Nitrite Negative (Negative) Ur Leukocyte Esterase Trace H (Negative) Urine RBC >20 H (0-2) /HPF Urine WBC 6-10 H (0-5) /HPF Ur Squamous Epith Cells 6-10 (0-2) /HPF Urine Bacteria 1+ (None Seen) Hyaline Casts 3-5 (0-2) /LPF Independent Interpretation I performed an independent interpretation of an: CT Scan (Abdomen and pelvis:Nonobstructive 6 mm radiopaque calculi lower pole left kidney. There is no evidence of hydronephrosis. Mild degenerative disc changes L5-S1 disc level with vacuum disc phenomena and ventral spondylosis.) Radiology Impression Discussion of test interpretation with radiology: I have reviewed the radiologist's reading. Medications Administered Discontinued Medications Generic Name Dose Route Start Last Admin Trade Name Freq PRN Reason Stop Dose Admin Ketorolac Tromethamine 30 mg 12/28/23 03:36 12/28/23 03:49 Ketorolac Tromethamine 30 Mg/Ml Vial IVPUSH 12/28/23 03:37 30 mg ONCE ONE Administration Morphine Sulfate 2 mg 12/28/23 03:36 12/28/23 03:49 Morphine Sulfate 2 Mg/Ml Cartridge IVPUSH 12/28/23 03:37 2 mg ONCE ONE Administration Protocol Ondansetron HCl 4 mg 12/28/23 03:37 12/28/23 03:49 Ondansetron Hcl 4 Mg/2 Ml Vial IVPUSH 12/28/23 03:38 4 mg ONCE ONE Administration Discharge Plan Discharge Clinical Impression: Calculus of proximal right ureter Patient Disposition: Home, Self-Care Instructions: Ureteral Stones (ED) Prescriptions: New prednisone 20 mg tablet 20 mg PO DAILY Qty: 3 0RF tamsulosin [Flomax] 0.4 mg capsule 0.4 mg PO BEDTIME Qty: 10 0RF oxycodone 5 mg tablet 5 mg PO Q8H PRN (Reason: pain) Qty: 10 0RF Rx Instructions: Partial Fill upon patient request. No Action Fiber Gummies with Vitamin D3 2,500 mg- 500 unit tablet,chewable 1 tab PO BID Qty: 60 3RF cholecalciferol (vitamin D3) 25 mcg (1,000 unit) capsule 25 mcg PO DAILY Qty: 30 11RF vitamin A palmitate 3,000 mcg (10,000 unit) tablet 3,000 mcg PO DAILY Qty: 30 3RF Galzin 25 mg (zinc) capsule 25 mg PO DAILY Qty: 30 3RF budesonide-formoterol [Symbicort] 160-4.5 mcg/actuation HFA aerosol inhaler 2 puff inhalation BID fluticasone propionate [Flovent HFA] 220 mcg/actuation HFA aerosol inhaler 1 puff inhalation BID cetirizine 10 mg tablet 10 mg PO DAILY ipratropium-albuterol 0.5 mg-3 mg(2.5 mg base)/3 mL solution for nebulization 3 ml inhalation QID Fiber Gummies 2 gram tablet,chewable 2 g PO BID Qty: 60 6RF docusate sodium [Colace] 100 mg capsule 100 mg PO BID Qty: 60 5RF calcium citrate-vitamin D3 [Calcium Citrate + D] 315 mg-5 mcg (200 unit) tablet 1 tab PO BID Qty: 60 11RF Referrals: Chente Ceron MD [Physician] -
[2023-12-28] MEDS: Morphine Sulfate 2 MG/ML CARTRIDGE IVPUSH (03:49)
[2023-12-28] MEDS: ondansetron HCL 4 MG/2 ML VIAL IVPUSH (03:49)
[2023-12-28] MEDS: Ketorolac Tromethamine 30 MG/ML VIAL IVPUSH (03:49)
[2023-12-28 06:30] VITALS: BP 136/68; PULSE 82; RESP 16; O2SAT 98
[2023-12-28 07:42] VITALS: RESP 20
[2023-12-28] MEDS: HYDROmorphone HCl 1 MG/ML SYRINGE IVPUSH (07:42)
[2023-12-28 08:42] VITALS: BP 103/51; PULSE 78; RESP 14; TEMP 36.5; O2SAT 93
[2023-12-28 09:22] VITALS: BP 101/60; PULSE 82; RESP 18; O2SAT 98
--- NOTE | 2023-12-28 09:47 | PC.NURSE ---
Held discharge off for a bit due to MD ordering IV dilaudid for pain. Bp slightly low previously. Patient sitting up on stretcher. Feeling better Bp 120/84. Discharged home with daughter. Pain improved.
[2023-12-28 09:48] VITALS: BP 120/84; PULSE 82; RESP 20; O2SAT 98
== END 2023-12-28 09:48 | disposition home or self-care (01) ==
PROVIDERS: Nurse Practitioner Family; Emergency Provider Emergency Medicine; PCP Internal Medicine
DX: N13.2 Hydronephrosis with renal and ureteral calculous obstruction (principal); I10 Essential (primary) hypertension; E55.9 Vitamin D deficiency, unspecified; G47.33 Obstructive sleep apnea (adult) (pediatric); K76.0 Fatty (change of) liver, not elsewhere classified; E66.01 Morbid (severe) obesity due to excess calories; Z68.43 Body mass index [BMI] 50.0-59.9, adult; Z90.710 Acquired absence of both cervix and uterus; Z90.49 Acquired absence of other specified parts of digestive tract; Z98.84 Bariatric surgery status; Z99.89 Dependence on other enabling machines and devices
CPT/HCPCS: 36415; 74176; 80048; 80076; 81001; 83690; 84702; 85025; 87086; 96374; 96375; 99284; J1170; J1885; J2270; J2405

== ENCOUNTER → 2024-01-04 19:30 | Outpatient (REF) | payer MEDICAID, SELFPAY | LOC: HO.SL 19:30 | PROVIDERS: PCP Internal Medicine; Visit Provider Internal Medicine | DX: Z13.89 Encounter for screening for other disorder (principal) ==

== ENCOUNTER 2024-01-10 14:48 | Outpatient (REF) | payer MEDICAID, SELFPAY ==
--- NOTE | ~2024-01-10 | US_ITS ---
EXAMINATION: US THYROID CLINICAL INFORMATION: Hyperparathyroidism. COMPARISON: None available. TECHNIQUE: Linear transducer grayscale and color Doppler examination with attention to the region of the thyroid. FINDINGS: SIZE: Measurements of the thyroid lobes and nodules are given in sagittal, anteroposterior and transverse dimensions respectively. Right Thyroid Lobe: 4.8 x 1.5 x 1.6 cm, volume 6.0 mL. Parenchyma: The gland echotexture is homogeneous. Thyroid vascularity is normal. Left Thyroid Lobe: 4.3 x 1.2 x 1.6 cm, volume 4.3 mL. Parenchyma: The gland echotexture is homogeneous. Thyroid vascularity is normal. Isthmus: 0.4 cm in maximum AP dimension. Estimated total number of nodules greater than or equal to 1 cm: 0. Cathead Operator nodules are described as follows: 1. Location: Right mid. Size: 0.9 x 0.5 x 0.8 cm, volume 0.2 mL. Nodule characteristics: Composition: Solid (2). Echogenicity: Hypoechoic (2). Shape: Not taller than wide (0). Margins: Ill-defined (0). Echogenic Foci: None (0). ACR TI-RADS total points: 4 ACR TI-RADS category: 4 NODES: No lymphadenopathy is seen in the tissue surrounding the thyroid gland. US/US thyroid IMPRESSION: A small right thyroid lobe nodule is seen, as detailed. No specific imaging follow-up is recommended. ACR TI-RADS RECOMMENDATION REFERENCE: Ultrasound-guided fine-needle aspiration, followup ultrasound, no further follow up. * TR1 (0 point) and TR2 (2 points): No FNA or follow up. * TR3 (3 points): FNA if more than or equal to 2.5 cm in maximum dimension, followup ultrasound in 1, 3 and 5 years if 1.5 to 2.4 cm in maximum dimension. * TR4 (4-6 points): FNA if more than or equal to 1.5 cm in maximum dimension, followup ultrasound in 1, 2, 3 and 5 years if 1 to 1.4 cm in maximum dimension. * TR5 (more than or equal to 7 points): FNA if more than or equal to 1 cm in maximum dimension, followup ultrasound every year for 5 years if 0.5 to 0.9 cm in maximum dimension. * TR3, TR4 or TR5 nodules that are below the size threshold for followup receive no follow up.
== END 2024-01-10 14:49 | disposition home or self-care (01) ==
LOC: HO.US 14:48
PROVIDERS: PCP Internal Medicine; Visit Provider Internal Medicine
DX: E21.3 Hyperparathyroidism, unspecified (principal)
CPT/HCPCS: 76536

== ENCOUNTER 2024-01-30 08:36 | Outpatient (AMB) | payer MEDICAID, SELFPAY ==
--- NOTE | 2024-01-30 08:48 | MHC.OFFVIS ---
Intake Intake Visit Reasons: ER follow up Intake Note: New Patient presents today for a ER follow up Meds- Tamsulosin(D/C) Allergies to Antibiotic- No Known Allergies Blood Thinner- None Patient stated she was in the ER due to a right back lower pain that radiated to the right lower abdomen. She had a CT scan done and was found a kidney stone. She is no longer taking the Tamsulosin and Prednisone, and she is feeling better. Lithographic Proofer Required: Yes Lithographic Proofer Name: Brittni Accompanied by: Self / Same As Patient Allergies Cortisone Allergy (Intermediate, Uncoded 01/30/24 09:02) itching,hives Medication List - Last Reconciled 01/30/24 by Chente Ceron MD budesonide-formoterol 160-4.5 mcg/actuation (Symbicort) 2 puffs inhalation BID calcium citrate-vitamin D3 315 mg-5 mcg (200 unit) (Calcium Citrate + D) 1 tab PO BID cetirizine 10 mg PO DAILY cholecalciferol (vitamin D3) 25 mcg PO DAILY docusate sodium (Colace) 100 mg PO BID fluticasone propionate 220 mcg/actuation (Flovent HFA) 1 puff inhalation BID inulin-vitamin D3 2,500 mg- 500 unit (Fiber Gummies with Vitamin D3) 1 tab PO BID ipratropium-albuterol 0.5 mg-3 mg(2.5 mg base)/3 mL 3 mL inhalation QID vitamin A palmitate 3,000 mcg PO DAILY zinc acetate (Galzin) 25 mg PO DAILY HPI HPI Comments History of Present Illness Details Mikaela is a 43-year-old female who was in the ED 12/28/2023 for right flank pain. 4mm proximal right ureteral stone is noted on CT KUB. Also bilateral renal cysts noted. The patient states that she has had previous kidney stone in the past. She states at the right flank pain has resolved. She has not sure if she passed the stone. Comorbidity-obesity. Exam-mild right CVA tenderness with palpation abdomen soft. Urinalysis trace protein, blood negative, leukocytes negative. 01/30/2024--plan: renal US KUB Xray 24 hr urine [facility] Medical History Steatosis, liver Arthritis GERD (gastroesophageal reflux disease) HTN (hypertension) Asthma SUMIT on CPAP Surgical History S/P laparoscopic sleeve gastrectomy H/O: hysterectomy H/O tubal ligation Hx of cholecystectomy Hx of colonoscopy Hx of section Family History Mother Hypertension Father Diabetes Hypertension Heart problem Son No problems noted. Son No problems noted. Daughter No problems noted. Daughter No problems noted. Social History Household Members: Family Housing: House Are you a primary day care provider to a significant other at home: No Do you presently have visiting nurse or other home services: No 75 years or older and lives alone: No Alcohol intake: never Comment: patient wears a brace on right knee, r/t arthritis Patient Tobacco Use Status: Never used Tobacco Review of Systems Const All systems reviewed & are unremarkable except as noted in HPI and below Reports no additional complaints Eyes Reports no additional complaints ENT Reports no additional complaints Card Reports no additional complaints Resp Reports no additional complaints GI Reports no additional complaints Reports as per HPI Musc Reports no additional complaints Skin/Breast Reports system reviewed and no additional complaints, except as documented Neuro Reports no additional complaints Psych Reports no additional complaints Endo Reports no additional complaints Redd/Lymph Reports no additional complaints Aller/Immun Reports no additional complaints Physical Exam Const General: cooperative, healthy appearing and no acute distress Orientation/consciousness: patient oriented x3 HEENT Head: Yes normal to inspection, Yes normocephalic and Yes atraumatic Eyes Conjunctivae: conjunctivae normal Neck Neck: Yes normal visual inspection and Yes trachea midline Chest Chest palpation & inspection: normal inspection of the chest Resp Effort & Inspection: normal respiratory effort Cardio Rate: regular rate GI Inspection: Yes normal to inspection Palpation (GI): Soft to palpation General: Yes CVA tenderness on the right Back/Spine/Pelvis Back: CVA tenderness Skin General skin exam: no rashes or lesions noted Neuro General: patient oriented x3 Extrem General: No edema Psych Appearance: grossly normal Results AMB Urinalysis, Automated UA Leukoctes 0 Fitz/uL Last Edit by Mally Hernandez CMA on 01/30/24 09:02 UA Nitrite Negative Last Edit by Mally Hernandez CMA on 01/30/24 09:02 UA Urobilinogen 3.5 mg/dL Last Edit by Mally Hernandez CMA on 01/30/24 09:02 UA Protein mg/dL Last Edit by Mally Hernandez CMA on 01/30/24 09:02 0.15 g/l Mally Hernandez 01/30/24 09:02 UA pH 6.0 Last Edit by Mally Hernandez CMA on 01/30/24 09:02 UA Blood 0 Fred/uL Last Edit by Mally Hernandez [facility] on 01/30/24 09:02 UA Specific [place] 1.030 Last Edit by Mally Hernandez CMA on 01/30/24 09:02 UA Ketone Negative Last Edit by Mally Hernandez CMA on 01/30/24 09:02 UA Bilirubin 17 mg/dL Last Edit by Mally Hernandez CMA on 01/30/24 09:02 UA Glucose 0 mg/dL Last Edit by Mally Hernandez CMA on 01/30/24 09:02 Results Reviewed Results Reviewed: Laboratory Last Values Urine pH (Auto) 6.0 01/30/24 09:00 Specific [place] (Auto) 1.030 01/30/24 09:00 Urine Protein (Auto) mg/dL 01/30/24 09:00 Glucose (UA)(Auto) 0 mg/dL 01/30/24 09:00 Urine Ketones (Auto) Negative 01/30/24 09:00 Urine Blood (Auto) 0 Fred/uL 01/30/24 09:00 Urine Nitrite (Auto) Negative 01/30/24 09:00 Urine Bilirubin (Auto) 17 mg/dL 01/30/24 09:00 Urine Urobilinogen (Auto) 3.5 mg/dL 01/30/24 09:00 Leukocyte Esterase (Auto) 0 Fitz/uL 01/30/24 09:00 Date of Service: 12/28/23 EXAMINATION: CT ABDOMEN AND PELVIS WITHOUT CONTRAST CLINICAL INFORMATION: Right flank pain. COMPARISON: Correlation made with ultrasound performed 07/08/2023. TECHNIQUE: Multidetector volumetric imaging was performed from the superior aspect of the liver through the pubic symphysis. Sagittal and coronal reformatted images were obtained on the technologist's workstation. This CT examination was performed using dose optimization techniques as appropriate, variously including the following: *Automated exposure control *Adjustment of mA and/or kV according to patient size (this includes techniques or standardized protocols for targeted exams where dose is matched to indication/reason for exam; i.e. extremities or head) *Use of iterative reconstruction technique DLP: 937 mGy-cm FINDINGS: LUNG BASES: The visualized lung bases are unremarkable. LIVER, GALLBLADDER, AND BILIARY TREE: The liver is normal in size, shape, and attenuation. No focal hepatic lesion or biliary ductal dilatation is present. There has been a prior cholecystectomy. PANCREAS: Unremarkable. SPLEEN: Unremarkable. ADRENAL GLANDS: Unremarkable. KIDNEYS AND URETERS: The kidneys are normal in size, shape, and attenuation. There is a 1.3 cm hypodensity upper pole left kidney with low attenuation values most consistent with that of a cyst. There is a 2.3 cm intermediate density structure upper pole of the right kidney. There is mild right perinephric stranding. There is mild right hydronephrosis and mild proximal right hydroureter to the level of a 4 mm proximal right ureteric calculus. BLADDER: Unremarkable. GASTROINTESTINAL TRACT: The small and large bowel are unremarkable. The appendix is unremarkable. ABDOMINAL WALL: No significant hernia is appreciated. LYMPH NODES: Normal. VASCULAR: Unremarkable. PELVIC VISCERA: Unremarkable. OSSEOUS STRUCTURES: Unremarkable. IMPRESSION: 4 mm proximal right ureteric calculus with mild right hydronephrosis and perinephric stranding. 2.3 cm intermediate density structure upper pole of the right kidney. This was seen on prior ultrasound as a cyst. Assessment & Plan Assessment & Plan (1) Ureteral calculus, right: Code(s): N20.1 - Calculus of ureter (2) History of kidney stones: Code(s): Z87.442 - Personal history of urinary calculi (3) Right flank pain: Code(s): R10.9 - Unspecified abdominal pain (4) Hydronephrosis: Code(s): N13.30 - Unspecified hydronephrosis Plan renal US KUB Xray 24 hr urine, if the stone is still present with hydronephrosis I would like to wait on the 24 hour urine testing Orders: Orders XR KUB Today N20.1 - Calculus of ureter AMB Urinalysis Automated Today R33.9 - Retention of urine, unspecified US renal BI Today N13.30 - Unspecified hydronephrosis, N20.1 - Calculus of ureter Patient Instructions: The patient had an opportunity to ask questions regarding treatment plan. All questions were answered. Imaging, Laboratory studies and physical exam results were discussed and reviewed in detail. No major barriers to understanding were identified. The patient expressed understanding and agreement with the above treatment plan. The patient is aware they should contact our office by phone for worsening of their current condition or the appearance of new symptoms. Compliance is encouraged with any medications and followup testing that is ordered. It is a privilege to be allowed the opportunity to participate in the urologic care of your patient. If you have any questions or concerns regarding treatment for the above conditions please do not hesitate to contact me. The office telephone contact is [phone]. This note is constructed in part using voice recognition software. While every effort has been made to ensure accuracy asphalt tamper errors may have been included. Yours sincerely, Chente Ceron MD Coding Level of Care Code New Pt Level 4 (02883) Diagnoses Ureteral calculus, right N20.1 History of kidney stones Z87.442 Right flank pain R10.9 Hydronephrosis N13.30
== END 2024-01-30 09:27 | disposition home or self-care (01) ==
PROVIDERS: PCP Internal Medicine; Visit Provider Urology
DX: N20.1 Calculus of ureter (principal); Z87.442 Personal history of urinary calculi; R10.9 Unspecified abdominal pain; N13.30 Unspecified hydronephrosis; R33.9 Retention of urine, unspecified
CPT/HCPCS: 99204

== ENCOUNTER → 2024-01-30 08:36 | Outpatient (BNVA) | payer MEDICAID, SELFPAY | PROVIDERS: PCP Internal Medicine; Visit Provider Urology | DX: N20.1 Calculus of ureter (principal); N13.30 Unspecified hydronephrosis; R10.9 Unspecified abdominal pain; Z87.442 Personal history of urinary calculi | CPT/HCPCS: 81003; 99202 ==

== ENCOUNTER 2024-03-12 11:50 | Outpatient (REF) | payer MEDICAID, SELFPAY ==
--- NOTE | ~2024-03-12 | XR_ITS ---
EXAMINATION: XR ABDOMEN KUB CLINICAL INDICATION: Calculus in ureter, pain in abdomen. Known diagnosis of calculus in ureter. COMPARISON: CT abdomen and pelvis 12/28/2023. TECHNIQUE: 2 AP views of the abdomen. FINDINGS: Surgical clips in the upper abdomen. Degenerative changes in the imaged thoracolumbar spine. Nonobstructive bowel gas pattern. The 4 mm proximal right ureteric calculus identified on CT scan of 12/28/2023 is not clearly appreciated on the current exam, although visualization limited due to overlying bowel. XR/XR KUB IMPRESSION: No definitive renal calculi appreciated. The 4 mm proximal right ureteric calculus identified on CT scan of 12/28/2023 is not clearly appreciated on the current exam, although visualization limited due to overlying bowel.
== END 2024-03-12 11:51 | disposition home or self-care (01) ==
LOC: HO.XRAY 11:50
PROVIDERS: PCP Internal Medicine; Visit Provider Urology
DX: N20.1 Calculus of ureter (principal)
CPT/HCPCS: 74018

== ENCOUNTER 2024-03-21 10:26 | Outpatient (REF) | payer MEDICAID, SELFPAY ==
--- NOTE | ~2024-03-21 | US_ITS ---
EXAMINATION: US RETROPERITONEAL LIMITED (RENAL ONLY) CLINICAL INFORMATION: Unspecified hydronephrosis. COMPARISON: X-ray abdomen KUB 03/12/2024. CT abdomen and pelvis 12/28/2023. Limited abdominal ultrasound 07/08/2023. Ultrasound abdomen complete was elastography 10/07/2022. TECHNIQUE: Real-time imaging of the kidneys. Limited visualization due to bowel gas.FINDINGS: RIGHT KIDNEY: 12.9 x 5.9 x 7.0 cm (SAG x AP x TRV). The kidney is normal in size, contour, and echogenicity. Renal cortical thickness is normal. No renal calculi or hydronephrosis. 2.3 cm upper pole cyst. Ultrasound of July 08, 2023 demonstrated a 1.8 cm upper pole cyst. There is no indication for follow-up imaging. LEFT KIDNEY: 11.7 x 6.3 x 4.9 cm (SAG x AP x TRV). The kidney is normal in size, contour, and echogenicity. Renal cortical thickness is normal. No renal calculi or hydronephrosis. 1.9 cm upper to mid pole cyst is difficult to characterize due to bowel gas. Ultrasound of 10/07/2022 demonstrated a 1.5 x 1.4 x 1.5 cm mid pole cyst. CT scan of 12/28/2023 demonstrated 1.3 cm hypodensity upper pole left kidney felt to be most consistent with a cyst. US/US renal BI IMPRESSION: Bilateral renal cysts with benign features. There is no indication for follow-up imaging.
== END 2024-03-21 10:27 | disposition home or self-care (01) ==
LOC: HO.US 10:26
PROVIDERS: PCP Internal Medicine; Visit Provider Urology
DX: N13.30 Unspecified hydronephrosis (principal); N20.1 Calculus of ureter
CPT/HCPCS: 76775

== ENCOUNTER 2024-04-20 13:28 | Outpatient (REF) | payer MEDICAID, SELFPAY ==
[2024-04-20 16:17] LABS: MANUAL DIFF FLAG NO
[2024-04-20 16:21] LABS: Basophils Percent Auto 0.5 % (0-2); Eosinophils Absolute Auto 0.1 X10*3/uL (0.0-0.4); Eosinophils Percent Auto 1.3 % (0-4); Hematocrit 42.1 % (37.0-47.0); Imm Gran Abs Auto 0.02 X10*3/uL (0.00-0.03); Imm Gran Pct Auto 0.3 % (0.0-0.4); Lymphocytes Absolute Auto 2.2 X10*3/uL (1.2-4.9); Lymphocytes Percent Auto 35.9 % (20-40); Mean Corpuscular HGB Conc 30.9 g/dl (31.0-35.0); Mean Corpuscular Hemoglobin 26.1 pg (27.0-33.0); Mean Corpuscular Volume 84.4 fL (80.0-98.0); Mean Platelet Volume 12.3 fL (9.4-12.3); Monocytes Absolute Auto 0.4 X10*3/uL (0.1-1.2); Monocytes Percent Auto 6.7 % (2-11); Neutrophils Absolute Auto 3.4 x10*3/uL (2.0-8.3); Neutrophils Percent Auto 55.3 % (45-73); Platelet Count 247 X10*3/uL (160-400); Red Blood Count 4.99 X10*6/uL (4.20-5.50); Red Cell Distribution Width 13.2 % (11.0-16.0); White Blood Count 6.1 X10*3/uL (4.8-10.8)
[2024-04-20 16:37] LABS: Alanine Aminotransferase 23 U/L (0-31); Albumin Level 4.4 g/dL (3.5-5.0); Alkaline Phosphatase 100 U/L (39-117); Anion Gap 14 (12-20); Aspartate Amino Transferase 23 U/L (5-31); Bilirubin Direct 0.2 mg/dL (0.0-0.5); Bilirubin Total 0.5 mg/dL (0.0-1.0); Blood Urea Nitrogen 13 mg/dL (9-16); Calcium 9.4 mg/dL (8.4-10.2); Carbon Dioxide 27 mmol/L (22-29); Chloride 103 mmol/L (96-108); Estimated Glomerular Filt Rate > 60; Glucose Random 104 mg/dL (60-115); Potassium 4.8 mmol/L (3.3-5.1); Sodium 139 mmol/L (135-145); Total Protein 8.5 g/dL (6.5-8.0)
[2024-04-23 04:01] LABS: HBS Num1 3.32 mIU/mL (0-7.99); HBsAGNum1 0.28 S/CO (0.00-0.99); Hepatitis A Antibody IgM 0.12 Index (0-0.79); Hepatitis B Core Antibody Nonreactive (Nonreactive); Hepatitis B Surface Antigen Negative (Negative); ~HepC Num1 0.11 S/CO (0.00-0.79); ~Hepatitis A Antibody IgM Nonreactive (Nonreactive); ~Hepatitis B Surface Antibody NONREACTIVE (Nonreactive); ~Hepatitis C Antibody Nonreactive (Nonreactive)
== END 2024-04-20 13:29 | disposition home or self-care (01) ==
LOC: HO.HHCL 13:28
PROVIDERS: Visit Provider Internal Medicine
DX: L30.8 Other specified dermatitis (principal)
CPT/HCPCS: 36415; 80048; 80076; 85025; 86704; 86706; 86709; 86803; 87340

== ENCOUNTER 2024-05-02 14:09 | Outpatient (AMB) | payer MEDICAID, SELFPAY ==
--- NOTE | 2024-05-02 14:15 | A.OFFVIS_ITS ---
Intake Visit Reasons: 6w/US/KUB/[facility] Intake Note: Patient is present for 6week f/u US/KUB/[facility] Urology Medication:none Antibiotic Allergy:none Blood Thinner:none High School Professional Required: No High School Professional Services: High School Professional Present High School Professional Name: Kiki--[id number] Information Interpreted: non-clinical & clinical Allergies Cortisone Allergy (Intermediate, Uncoded 05/02/24 14:17) itching,hives Medication List - Last Reconciled 05/02/24 by Chente Ceron MD budesonide-formoterol 160-4.5 mcg/actuation (Symbicort) 2 puffs inhalation BID calcium citrate-vitamin D3 315 mg-5 mcg (200 unit) (Calcium Citrate + D) 1 tab PO BID cetirizine 10 mg PO DAILY cholecalciferol (vitamin D3) 25 mcg PO DAILY docusate sodium (Colace) 100 mg PO BID fluticasone propionate 220 mcg/actuation (Flovent HFA) 1 puff inhalation BID inulin-vitamin D3 2,500 mg- 500 unit (Fiber Gummies with Vitamin D3) 1 tab PO BID ipratropium-albuterol 0.5 mg-3 mg(2.5 mg base)/3 mL 3 mL inhalation QID pyridoxine (vitamin B6) 100 mg PO DAILY vitamin A palmitate 3,000 mcg PO DAILY zinc acetate (Galzin) 25 mg PO DAILY HPI Comments Details: 05/02/2024--Mikaela is here for follow-up. Comorbidity-laparoscopic gastric sleeve. She was initially evaluated on 01/30/2024 for right proximal ureteral stone and hydronephrosis. She presents in follow-up, she had KUB and renal ultrasound performed. She also completed a 24 hour urine. Imaging reviewed no renal calculi, hydronephrosis resolved. In discussion regarding the 24 hour urine. Urine volume is low and I have instructed her to increase her fluid intake. Urine sodium and oxalate or both elevated. Discussed diet modification we will start vitamin B6 100 mg daily. Encouraged add lemon to her fluids/water. Will repeat 24 hour urine and ultrasound in 8-9 months follow-up post. Review of chart: 01/30/24--Mikaela is a 43-year-old female who was in the ED 12/28/2023 for right flank pain. 4mm proximal right ureteral stone is noted on CT KUB. Also bilateral renal cysts noted. The patient states that she has had previous kidney stone in the past. She states at the right flank pain has resolved. She has not sure if she passed the stone. Comorbidity-obesity. Exam-mild right CVA tenderness with palpation abdomen soft. Urinalysis trace protein, blood negative, leukocytes negative. PFSH Medical History Steatosis, liver Arthritis GERD (gastroesophageal reflux disease) HTN (hypertension) Asthma SUMIT on CPAP Surgical History S/P laparoscopic sleeve gastrectomy H/O: hysterectomy H/O tubal ligation Hx of cholecystectomy Hx of colonoscopy Hx of section Family History Mother Hypertension Father Diabetes Hypertension Heart problem Son No problems noted. Son No problems noted. Daughter No problems noted. Daughter No problems noted. Social History Household Members: Family Housing: House Are you a primary respiratory care technician to a significant other at home: No Do you presently have visiting nurse or other home services: No 75 years or older and lives alone: No Alcohol intake: never Comment: patient wears a brace on right knee, r/t arthritis Patient Tobacco Use Status: Never used Tobacco Review of Systems Const All systems reviewed & are unremarkable except as noted in HPI and below Reports no additional complaints Eyes Reports no additional complaints ENT Reports no additional complaints Card Reports no additional complaints Resp Reports no additional complaints GI Reports no additional complaints Reports as per HPI Musc Reports no additional complaints Skin/Breast Reports system reviewed and no additional complaints, except as documented Neuro Reports no additional complaints Psych Reports no additional complaints Endo Reports no additional complaints Redd/Lymph Reports no additional complaints Aller/Immun Reports no additional complaints Results AMB Urinalysis, Automated UA Leukoctes 0 Fitz/uL Last Edit by EDY Hawthorne on 05/02/24 14:32 UA Nitrite Negative Last Edit by EDY Hawthorne on 05/02/24 14:32 UA Urobilinogen 0.2 mg/dL Last Edit by Lizzie Mesa, SOLEDADA on 05/02/24 14:3 2 UA Protein 30 mg/dL Last Edit by Lizzie Mesa, RMA on 05/02/24 14:32 UA pH 5.5 Last Edit by Lizzie Mesa, RMA on 05/02/24 14:32 UA Blood 0 Fred/uL Last Edit by Lizzie Mesa, RMA on 05/02/24 14:32 UA Specific [place] 1.025 Last Edit by Lizzie Mesa, RMA on 05/02/24 14: 32 UA Ketone Positive Last Edit by Lizzie Mesa, RMA on 05/02/24 14:32 UA Bilirubin 2 mg/dL Last Edit by Lizzie Mesa, RMA on 05/02/24 14:32 UA Glucose 0 mg/dL Last Edit by Lizzie Mesa, RMA on 05/02/24 14:32 Assessment & Plan Assessment & Plan (1) History of kidney stones: Code(s): Z87.442 - Personal history of urinary calculi Category: Medical Plan: repeat 24 hour urine and ultrasound in 8-9 months follow-up post. Diet modification. (2) Hyperoxaluria: Code(s): R82.992 - Hyperoxaluria Category: Medical Plan Discussed decrease sodium in diet, will send vitamin B6 100 mg daily, increase fluids. Orders: Orders AMB Urinalysis Automated Today Z13.9 - Encounter for screening, unspecified Medications: New pyridoxine (vitamin B6) 100 mg PO DAILY 90 tabs 3RF Patient Instructions: The patient had an opportunity to ask questions regarding treatment plan. The patient expressed understanding and agreement with the above treatment plan. The patient is aware they should contact our office by phone for worsening of their current condition or the appearance of new symptoms. Compliance is encouraged with any medications and followup testing that is ordered. It is a privilege to be allowed the opportunity to participate in the urologic care of your patient. If you have any questions or concerns regarding treatment for the above conditions please do not hesitate to contact me. The office telephone contact is [phone]. This note is constructed in part using voice recognition software. While every effort has been made to ensure accuracy vibration technician errors may have been included. Yours sincerely, Chente Ceron MD Coding Level of Care Code Est Pt Level 4 (97289) Diagnoses History of kidney stones Z87.442 Hyperoxaluria R82.992
== END 2024-05-02 14:49 | disposition home or self-care (01) ==
PROVIDERS: PCP Internal Medicine; Referring Provider Internal Medicine; Visit Provider Urology
DX: Z87.442 Personal history of urinary calculi (principal); R82.992 Hyperoxaluria; Z13.9 Encounter for screening, unspecified
CPT/HCPCS: 99214

== ENCOUNTER → 2024-05-02 14:09 | Outpatient (BNVA) | payer MEDICAID, SELFPAY | PROVIDERS: PCP Internal Medicine; Visit Provider Urology | DX: R82.992 Hyperoxaluria (principal); Z87.442 Personal history of urinary calculi | CPT/HCPCS: 81003; 99212 ==

== ENCOUNTER 2024-06-22 14:45 | Outpatient (REF) | payer MEDICAID, SELFPAY ==
[2024-06-22 16:05] LABS: MANUAL DIFF FLAG NO
[2024-06-22 16:13] LABS: Basophils Percent Auto 0.3 % (0-2); Eosinophils Absolute Auto 0.1 X10*3/uL (0.0-0.4); Eosinophils Percent Auto 1.2 % (0-4); Hematocrit 39.9 % (37.0-47.0); Hemoglobin 12.7 g/dl (12.0-16.0); Imm Gran Abs Auto 0.02 X10*3/uL (0.00-0.03); Imm Gran Pct Auto 0.3 % (0.0-0.4); Lymphocytes Absolute Auto 2.3 X10*3/uL (1.2-4.9); Lymphocytes Percent Auto 38.3 % (20-40); Mean Corpuscular HGB Conc 31.8 g/dl (31.0-35.0); Mean Corpuscular Hemoglobin 26.8 pg (27.0-33.0); Mean Corpuscular Volume 84.4 fL (80.0-98.0); Mean Platelet Volume 11.6 fL (9.4-12.3); Monocytes Absolute Auto 0.3 X10*3/uL (0.1-1.2); Monocytes Percent Auto 4.8 % (2-11); Neutrophils Absolute Auto 3.3 x10*3/uL (2.0-8.3); Neutrophils Percent Auto 55.1 % (45-73); Platelet Count 226 X10*3/uL (160-400); Red Blood Count 4.73 X10*6/uL (4.20-5.50); Red Cell Distribution Width 13.8 % (11.0-16.0)
[2024-06-22 16:47] LABS: Parathyroid Hormone Intact 85.7 pg/mL (8.7-77.1)
[2024-06-22 16:52] LABS: Alanine Aminotransferase 23 U/L (0-31); Alkaline Phosphatase 88 U/L (39-117); Anion Gap 11 (12-20); Aspartate Amino Transferase 23 U/L (5-31); Bilirubin Total 0.4 mg/dL (0.0-1.0); Blood Urea Nitrogen 14 mg/dL (9-16); Carbon Dioxide 28 mmol/L (22-29); Chloride 108 mmol/L (96-108); Estimated Glomerular Filt Rate > 60; Glucose Random 86 mg/dL (60-115); Sodium 143 mmol/L (135-145); Total Protein 7.7 g/dL (6.5-8.0)
[2024-06-22 17:01] LABS: Vitamin D 25-OH Total 25.5 ng/mL (>30)
== END 2024-06-22 14:46 | disposition home or self-care (01) ==
LOC: HO.HHCL 14:45
PROVIDERS: Internal Medicine; Visit Provider Internal Medicine
DX: E21.3 Hyperparathyroidism, unspecified (principal); L30.8 Other specified dermatitis
CPT/HCPCS: 36415; 80053; 82306; 83970; 84100; 85025

== ENCOUNTER 2024-07-13 12:09 | Outpatient (REF) | payer MEDICAID, SELFPAY ==
[2024-07-13 13:36] LABS: MANUAL DIFF FLAG NO
[2024-07-13 13:45] LABS: Basophils Percent Auto 0.3 % (0-2); Eosinophils Absolute Auto 0.1 X10*3/uL (0.0-0.4); Eosinophils Percent Auto 1.4 % (0-4); Hematocrit 39.4 % (37.0-47.0); Hemoglobin 12.3 g/dl (12.0-16.0); Imm Gran Abs Auto 0.02 X10*3/uL (0.00-0.03); Imm Gran Pct Auto 0.3 % (0.0-0.4); Lymphocytes Absolute Auto 2.1 X10*3/uL (1.2-4.9); Lymphocytes Percent Auto 36.2 % (20-40); Mean Corpuscular HGB Conc 31.2 g/dl (31.0-35.0); Mean Corpuscular Hemoglobin 26.4 pg (27.0-33.0); Mean Corpuscular Volume 84.5 fL (80.0-98.0); Mean Platelet Volume 11.5 fL (9.4-12.3); Monocytes Absolute Auto 0.3 X10*3/uL (0.1-1.2); Monocytes Percent Auto 5.9 % (2-11); Neutrophils Absolute Auto 3.2 x10*3/uL (2.0-8.3); Neutrophils Percent Auto 55.9 % (45-73); Platelet Count 237 X10*3/uL (160-400); Red Blood Count 4.66 X10*6/uL (4.20-5.50); Red Cell Distribution Width 13.6 % (11.0-16.0); White Blood Count 5.7 X10*3/uL (4.8-10.8)
[2024-07-13 14:31] LABS: Erythrocyte Sedimentation Rate 21 MM/HR (0-20)
[2024-07-13 14:40] LABS: Folate 9.7 ng/mL (> or = 4.0); Vitamin B12 671 pg/mL (200-900)
[2024-07-13 14:55] LABS: Rheumatoid Factor < 13.0 IU/mL (<15.0)
[2024-07-14 07:24] LABS: Syphilis Screen Nonreactive (Nonreactive)
[2024-07-16 22:23] LABS: Lyme Abs Screen <0.90 index
[2024-07-18 11:38] LABS: Anti Nuclear Antibody Screen POSITIVE (NEGATIVE)
[2024-07-19 16:33] LABS: Cyclic Citrullinated Peptide <16 UNITS
== END 2024-07-13 12:10 | disposition home or self-care (01) ==
LOC: HO.HHCL 12:09
PROVIDERS: Visit Provider Internal Medicine
DX: M79.10 Myalgia, unspecified site (principal); L20.89 Other atopic dermatitis
CPT/HCPCS: 36415; 82607; 82746; 85025; 85652; 86038; 86039; 86200; 86431; 86617; 86618; 86780

== ENCOUNTER 2024-08-03 09:21 | Outpatient (REF) | payer MEDICAID, SELFPAY ==
--- NOTE | ~2024-08-03 | MM_ITS ---
EXAMINATION: MM SCREENING DIGITAL BREAST TOMOSYNTHESIS, BILATERAL CLINICAL INFORMATION: Screening. Asymptomatic. COMPARISON: Mammography: Comparison is made with available priors TECHNIQUE: Digital breast mammography with tomosynthesis is performed in both the craniocaudal and mediolateral oblique views along with computer-aided detection (CAD). FINDINGS: There are scattered areas of fibroglandular density (ACR BI-RADS breast composition Category b). There are no significant masses, abnormal calcifications, or other abnormalities. MM/MM tomosynthesis screening BI IMPRESSION: No mammographic evidence of malignancy. ASSESSMENT: BI-RADS BI-RADS 1 - Negative RECOMMENDATION: Routine annual mammography screening. 1 year F/U This examination should not preclude the clinical evaluation of a suspicious palpable abnormality. This patient's information was entered into a reminder system with a target due date for their next mammogram. Electronically signed by: Chrissie Barney DO 08/15/2024 09:24 AM EDT
== END 2024-08-03 09:22 | disposition home or self-care (01) ==
LOC: HO.MAMMO 09:21
PROVIDERS: PCP Internal Medicine; Visit Provider Internal Medicine
DX: Z12.31 Encounter for screening mammogram for malignant neoplasm of breast (principal)
CPT/HCPCS: 77063; 77067

== ENCOUNTER → 2024-08-03 09:30 | Outpatient (BNV) | payer MEDICAID, SELFPAY | PROVIDERS: PCP Internal Medicine; Visit Provider Internal Medicine | DX: Z12.31 Encounter for screening mammogram for malignant neoplasm of breast (principal) | CPT/HCPCS: 77063; 77067 ==

== ENCOUNTER 2024-10-09 12:28 | Outpatient (REF) | payer MEDICAID, SELFPAY ==
--- NOTE | ~2024-10-09 | XR_ITS ---
EXAMINATION: XR HAND, RIGHT CLINICAL INFORMATION: Right hand pain, chronic right hand pain. COMPARISON: None available. TECHNIQUE: PA, lateral, and oblique views of the right hand. FINDINGS: Moderate degenerative changes in the first carpometacarpal joint with joint space narrowing and hypertrophic change. Mild degenerative changes in the first metacarpophalangeal joint. Mild degenerative changes in the third DIP joint. XR/XR hand RT min 3V IMPRESSION: Moderate degenerative changes first carpometacarpal joint. Electronically signed by: Andra Garay MD 10/10/2024 11:29 AM LACHELLE
== END 2024-10-09 12:29 | disposition home or self-care (01) ==
LOC: HO.HHCX 12:28
PROVIDERS: Visit Provider Internal Medicine
DX: M79.641 Pain in right hand (principal); G89.29 Other chronic pain
CPT/HCPCS: 73130

== ENCOUNTER 2025-01-18 11:45 | Outpatient (REF) | payer MEDICAID, SELFPAY ==
--- NOTE | ~2025-01-18 | US_ITS ---
CLINICAL HISTORY: N13.30 - Unspecified hydronephrosis US Renal Comparison: US/SR - US RENAL BI - 03/21/24 10:35 EDT Findings: Right kidney normal in echotexture measures 11.7 cm x 4.9 cm x 4.1 cm. Left kidney normal in echotexture measures 12 cm x 5.7 cm x 4 cm. Small echogenic focus in left kidney either vascular calcification or nonobstructing stone. 1.6 cm x 1.7 cm x 1.8 cm right renal simple anechoic cyst. 1.5 cm x 1.1 cm x 1.4 cm left renal simple anechoic cyst. No hydronephrosis of either kidney. Normal color Doppler IMPRESSION: 1. Right kidney punctate nonobstructing stone versus vascular calcification. 2. Bilateral small simple renal cysts similar to previous examination. This document has been electronically signed by: Beba Santos MD on 01/18/2025 17:30:43
== END 2025-01-18 11:46 | disposition home or self-care (01) ==
LOC: HO.US 11:45
PROVIDERS: PCP Internal Medicine; Visit Provider Urology
DX: N13.30 Unspecified hydronephrosis (principal); Z87.442 Personal history of urinary calculi
CPT/HCPCS: 76775

== ENCOUNTER → 2025-01-18 11:47 | Outpatient (BNV) | payer MEDICAID, SELFPAY | PROVIDERS: PCP Internal Medicine; Visit Provider Specialist | DX: N28.1 Cyst of kidney, acquired (principal) | CPT/HCPCS: 76775 ==

== ENCOUNTER 2025-05-06 11:47 | Outpatient (AMB) | payer MEDICAID, SELFPAY ==
--- NOTE | 2025-05-06 12:03 | A.OFFVIS_ITS ---
Intake Visit Reasons: 9M f/u [facility] Intake Note: Patient is present for 9m follow up/[facility] * [facility] comp. 01/24 Urology Medication:none Antibiotic Allergy:none Blood Thinner:none Dining Services Manager Required: Yes Dining Services Manager Services: Dining Services Manager Present Dining Services Manager Name: Liss [id number] Information Interpreted: non-clinical & clinical Allergies Cortisone Allergy (Intermediate, Uncoded 05/02/24 14:17) itching,hives PFSH Medical History Steatosis, liver Arthritis GERD (gastroesophageal reflux disease) HTN (hypertension) Asthma SUMIT on CPAP Surgical History S/P laparoscopic sleeve gastrectomy H/O: hysterectomy H/O tubal ligation Hx of cholecystectomy Hx of colonoscopy Hx of section Family History Mother Hypertension Father Diabetes Hypertension Heart problem Son No problems noted. Son No problems noted. Daughter No problems noted. Daughter No problems noted. Social History Household Members: Family Housing: House Are you a primary women's health care nurse practitioner to a significant other at home: No Do you presently have visiting nurse or other home services: No 75 years or older and lives alone: No Alcohol intake: never Comment: patient wears a brace on right knee, r/t arthritis Patient Tobacco Use Status: Never used Tobacco Results AMB Urinalysis, Automated UA Leukoctes 15 Fitz/uL Last Edit by Eileen Blackwood on 05/06/25 16:14 UA Nitrite Negative Last Edit by Eileen Blackwood on 05/06/25 16:14 UA Urobilinogen 17 mg/dL Last Edit by Eileen Blackwood on 05/06/25 16:14 UA Protein 0.3 mg/dL Last Edit by Eileen Blackwood on 05/06/25 16:14 UA pH 6.0 Last Edit by Eileen Blackwood on 05/06/25 16:14 UA Blood 0 Fred/uL Last Edit by Eileen Blackwood on 05/06/25 16:14 UA Specific [place] 1.015 Last Edit by Eileen Blackwood on 05/06/25 16:14 UA Ketone Positive Last Edit by Eileen Blackwood on 05/06/25 16:14 UA Bilirubin 17 mg/dL Last Edit by Eileen Blackwood on 05/06/25 16:14 UA Glucose 0 mg/dL Last Edit by Eileen Blackwood on 05/06/25 16:14 Assessment & Plan Assessment & Plan Orders: Orders AMB Urinalysis Automated Today Z13.9 - Encounter for screening, unspecified Coding
--- OUTSIDE RECORDS SUMMARY | 2025-05-06 12:36 | XMS_ITS | Clinical Summary ---
Author Organization [email or web address] Address [address] [facility] [address] [place] [address] Care Team Providers Care Carpenter Prototype Name Role Phone Britni Green MD Primary Care Provider + Allergies Active Allergy Reactions Criticality Noted Date Comments Cortisone 11/23/2017 Tolerates topical cream/inhalers Medications * This document contains information received from the source organization and may not represent a complete record from that organization. polyvinyl alcohol (Liquifilm Tears) 1.4 % ophthalmic solution one drop in each eye 3 times a day 01/03/20 20 Active FREESTYLE LITE test strip USE TO TEST BLOOD GLUCOSE TWICE DAILY 11/08/19 23 Active FreeStyle lancets USE 1 LANCET BY TO SKIN ROUTE EVERY DAY 11/15/19 23 Active thiamine (Vitamin B-1) 100 MG tablet TAKE 1/2 TABLET (50 MG) BY MOUTH ONCE A DAY 11/06/20 22 Active beta carotene (vitamin A) 3 MG (89227 UT) capsule Take 10,000 Units by mouth in the morning. Active cyclobenzaprine (Flexeril) 10 MG tabletIndicatio ns:Lumbar paraspinal muscle spasm TOME NISH TABLETA TODOS LOS BARNHART AL ACOSTARSE 30 tablet 3 03/22/20 23 Active Galzin 25 MG capsule TAKE 1 CAPSULE (25 MG) ORALLY DAILY 06/06/20 23 Active omeprazole (PriLOSEC) [address] capsule Take 40 mg by mouth. 01/26/20 19 Active hydrocortisone (Anusol-HC) 2.5 % rectal creamIndication s:Grade II hemorrhoids INSERT INTO THE RECTUM 2 TIMES DAILY. 30 g 3 03/02/20 24 Active betamethasone, augmented, (Diprolene) 0.05 % lotionIndicatio ns:Psoriasiform dermatitis Apply topically Once per day. 30 mL 2 04/20/20 24 Active ergocalciferol (Vitamin D2) 1.25 MG (49846 UT) capsuleIndicati ons:Vitamin D deficiency TAKE 1 CAPSULE BY MOUTH ONCE A WEEK 12 capsule 07/04/20 24 Active Linzess 145 MCG capsuleIndicati ons:Vitamin D deficiency TOME 1 CAPSULA POR VIA ORAL BEFORE BREAKFAST.DO NOT CRUSH OR CHEW 30 capsule 11 08/03/20 24 Active dicyclomine (Bentyl) 10 MG capsuleIndicati ons:Grade II hemorrhoids TAKE 1 CAPSULE BY MOUTH THREE TIMES A DAY 270 capsule 11/05/20 24 Active budesonide-form oterol (Symbicort) 160-4.5 MCG/ACT inhalerIndicati ons:Moderate persistent asthma without complication INHALE 2 PUFFS BY MOUTH TWICE DAILY IN THE MORNING AND EVENING. 10.2 each 3 01/19/20 25 Active Combivent Respimat 20-100 MCG/ACT inhalerIndicati ons:Moderate persistent asthma without complication INHALE 1 PUFF IN THE MORNING, AT NOON, IN THE EVENING, AND AT BEDTIME. 4 g 11 01/19/20 25 Active ketoconazole (NIZOral) 2 % shampooIndicati ons:Psoriasifor m dermatitis Apply topically 3 (three) times a week. 120 mL 3 02/09/20 25 Active Clobetasol Propionate 0.05 % shampooIndicati ons:Psoriasifor m dermatitis APPLY SHAMPOO DAILY 118 mL 1 02/09/20 25 Active Fluocinolone Acetonide Scalp (Groom-Smoothe/ FS Scalp) 0.01 % oilIndications: Psoriasiform dermatitis Use 2-3 times weekly at night and apply covers 118.28 mL 2 02/09/20 25 Active methotrexate 2.5 MG tabletIndicatio ns:Psoriasiform dermatitis Take 6 tablets (15 mg total) by mouth 1 (one) time per week. Follow directions carefully, and ask to explain any part you do not understand. Take exactly as directed. 24 tablet 11 02/09/20 25 Active folic acid (Folvite) 1 MG tabletIndicatio ns:Psoriasiform dermatitis Take 1 tablet (1 mg) by mouth Once per day. 30 tablet 11 02/09/20 25 026 Active gabapentin (Neurontin) 300 MG capsule TAKE 1 CAPSULE POR VIA ORAL AL ACOSTARSE 90 capsule 1 02/21/20 25 Active meloxicam (Mobic) 15 MG tablet TAKE 1 TABLET BY MOUTH EVERY DAY 30 tablet 03/20/20 25 Active cetirizine (ZyrTEC) 10 MG tabletIndicatio ns:Chronic rhinitis TAKE 1 TABLET BY MOUTH EVERY MORNING 90 tablet 1 03/28/20 25 Active ipratropium-alb uterol (Duo-Neb) 0.5-2.5 mg/3 mL nebulizer solution INHALE 1 AMPULE BY NEBULIZER EVERY 6 HOURS 180 mL 03/28/20 25 Active buPROPion SR (Wellbutrin SR) 200 MG 12 hr tablet Take 1 tablet (200 mg) by mouth 2 times daily. Do not crush, chew, or split. 180 tablet 2 04/18/20 25 Active buPROPion SR (Wellbutrin SR) 150 MG 12 hr tablet Take 1 tablet (150 mg) by mouth 2 times daily. Do not crush, chew, or split. 180 tablet 2 10/09/20 24 025 Discontinued(R eorder (will not trigger notification to Pharmacy)) Active Problems Problem Noted Date Diagnosed Date Primary osteoarthritis of both hands 04/18/2025 Tendinitis of both hands 04/18/2025 Assessment & Plan (04/18/2025 2:36 PM EDT): No evidence of psoriatic arthritis, will refer to OT. Patient can use wrist brace for ADLs and follow-up with rheumatology Anxiety 09/19/2024 Moderately severe depression 09/19/2024 Assessment & Plan (10/09/2024 1:44 PM EST): I gave her information about [facility] therapy clinic in [place] to call for appointment, a referral was faxed by our counselor. Start Wellbutrin BID and FU with me in 3 weeks. Positive BRITNI (antinuclear antibody) 07/23/2024 Assessment & Plan (10/09/2024 1:37 PM EST): Rule out Psoriatic arthritis. She did well with Prednisone initially, she will FU with rheumatology in November 2024 and consider TNF inhibitors. Start Gabapentin QHS, which will help FM symptoms. Start Meloxicam daily and FU with me in 1 month. Myofascial pain syndrome 07/13/2024 Assessment & Plan (04/18/2025 2:28 PM EDT): All rheumatological workup is negative for autoimmune disease, psoriasis seems to be controlled with MTX. Continue Topamax 100 mg nightly and gabapentin 300 mg twice daily We discussed about physical activity as tolerated, she agreed to be referred for therapy so we will start with OT given that hands pain is one of the most limiting issues. We discussed the importance to come to acupuncture clinic and I will refer to the chronic pain management clinic. Follow-up in 4 to 6 weeks and we will consider start on HRT due to menopause/postsurgical menopause may be playing a role in this Assessment & Plan (08/29/2024 10:25 AM EDT): Probably Fibromyalgia, will follow up with Foreign Language Teacher. Will increase Topamax to 100 mg QHS to help with insomnia and mood disorder, continue 50 mg in the morning. Assessment & Plan (07/13/2024 2:17 PM EDT): Very unspecific, order labs for auto immune disorder. DC Phentermine, use Tylenol BID for 2 weeks and prn pain. Use Flexeril only prn back spasm. Bring medications on next appointment, follow up in 6-8 weeks. 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 Chronic gastritis without bleeding 11/29/2023 Overview (11/29/2023): Had EGD on 2019 ([facility]). Assessment & Plan (11/29/2023 2:41 PM EST): Had EGD on 2019 ([facility]). She maybe symptomatic. Use sucralfate tid ac meals prn abd pain. Has fu EGD In 3mo Tinea corporis 11/29/2023 Assessment & Plan (02/07/2024 12:48 PM EDT): Refill for Lotrisone cream Assessment & Plan (11/29/2023 2:36 PM EST): On left Flank Use lotrisone cream Concern about cancer without diagnosis Assessment & Plan (11/29/2023 2:53 PM EST): We discussed about Type of Cancers in her family, most of them are Breast Ca on Relatives around age 50s, she doesn't have Exact info on age or further studies. She is unaware that any of her relatives has been studied for genetic markers. Since her mammogram and colonoscopy are uptodate, I encouraged to fu with those regularly, she will address issue with gI, to see if there is need of addtl testing, I will fu with her after next colonoscopy. She will find out with her sister and other relatives, further details about their Ca dx. Moderate persistent asthma without complication 08/11/2023 Assessment & Plan (04/18/2025 2:32 PM EDT): Doing well on Symbicort and Spiriva daily, use albuterol as needed Follow-up with indirect sales exec Assessment & Plan (11/29/2023 2:33 PM EST): Continue Symbicort and combivent prn sob/cough. Will order PFTs later this year. Chronic rhinitis 08/11/2023 Encounter for preventive health examination 06/07 Assessment & Plan (06/20/2023 12:33 PM EDT): Discussed with patient re increase fresh fruit and vegetable intake. Counseled re moderate exercise as tolerated, up to 20min/d Patient feels safe at home. PAP smear: N/A, she's spt [facility] due to benign condition, see history Mammogram: TBO Eye exam: Overdue, she'll schedule it at our eye clinic CRC screen: Next one due on 2023 Lipids/FBS: Up to date, next one due on 05/2024 Vaccinations: Counseled re Covid booster, order IZ levels. Dental visit: Overdue, counseled to make appt at our dental clinic. Dietary counseling 05/02/2023 Exercise counseling 05/02/2023 Adjustment disorder with anxiety 05/02/2023 Assessment & Plan (08/29/2024 2:19 PM EDT): Exacerbated due to Obesity + possibly Fibromyalgia. Continue Topamax and refer to BH. Assessment & Plan (05/02/2023 3:24 PM EDT): most likely related to current house hold situations r/o MDD pt has an appointent with [facility] counselor. FU in 6 weeks with me feels safe at home at this time Venous insufficiency of both lower extremities 0 05/02/2023 Assessment & Plan (07/13/2024 2:16 PM EDT): Advised to continue weight reduction and use compression stockings. Assessment & Plan (05/02/2023 3:24 PM EDT): continue weight reduction use compression stockings prescription will be left in red [employer] DME box Urticaria 12/28/2022 Elevated liver enzymes 12/01/2022 Assessment & Plan (05/02/2023 3:27 PM EDT): it was apaprently related to fatty liver recheck LFTs and fu in 6 weeks congratulated her on weight reduction counseled to avoid alcohol Adjustment insomnia 11/17/2022 Atopic dermatitis 11/17/2022 Assessment & Plan (07/13/2024 2:20 PM EDT): Apparently more of a mild psoriasis follow up with box repairer. Continue Methotrexate mg per week and follow up with box repairer. Essential hypertension 11/17/2022 Assessment & Plan (04/18/2025 2:13 PM EDT): Controlled off meds, sp bariatric surgery. Counseled re low salt diet/increase moderate physical activity. Check home BP BIW and prn CP/FERGUSON/CASEY Non smoking patient. FU in 6 months Assessment & Plan (07/13/2024 2:15 PM EDT): Fairly controlled, stage 1. Counseled re low salt diet/increase moderate physical activity. Check home BP BIW and prn CP/FERGUSON/CASEY Follow up next appointment, may decide to start on medications if not at goal. Assessment & Plan (02/14/2023 11:22 AM EDT): BP is controlled off medications. DC amlodipine Congratulated her on weight reduction continue low fat intake and increase exercise fu in 6 months Assessment & Plan (11/17/2022 9:59 PM EST): Controlled. Compliant w/meds Continue amlodipine same dose Counseled re low salt diet/increase moderate physical activity. Check home BP BIW and prn CP/FERGUSON/CASEY Non smoking patient. Gastroesophageal reflux disease 11/17/2022 Overview (08/11/2023): EGD on 01/18/19 At [facility]: esophagitis + gastritis + duodenitis Assessment & Plan (02/14/2023 11:23 AM EDT): Most likely exacerbated by recent gastric sleeve Recommended smaller in fraction meals go back to liquid diet advance PO diet every other week use pantoprazole x2 days and sucralfate PRN encouraged to continue weight reduction Hyperparathyroidism 11/17/2022 Assessment & Plan (04/18/2025 2:15 PM EDT): Seen by red hat linux administrator, he is resistant to vitamin D supplementation. Obtain POC from [facility] endocrinology office Assessment & Plan (07/13/2024 2:18 PM EDT): Not improved despite one year of vitamin D supplementation. Refer to Endocrinology. Assessment & Plan (02/07/2024 12:48 PM EDT): Complete vitamin supplementation x6 months and repeat vitamin D and PTH levels in three months. Assessment & Plan (12/28/2023 11:00 AM EST): -Vitamin D deficient. -Rule Out hyperplasia due to laryngeal symptoms. -Repeat PTH. Assessment & Plan (11/29/2023 2:34 PM EST): Repeat labs, vit D levels didn't change with supplementation for 6mo. She seems to have hands cramps that could be related to it. Assessment & Plan (05/02/2023 3:28 PM EDT): likely related to vit d deficiency, check labs and FU with me in 6 weeks Slow transit constipation 11/17/2022 Assessment & Plan (04/18/2025 9:01 AM EDT): >>ASSESSMENT AND PLAN FOR CHRONIC IDIOPATHIC CONSTIPATION WRITTEN ON 08/11/2023 2:34 PM BY BRITNI GREEN MD Cont Colace and miralax Add linzess I left a message at GI office to call back if they want to expedite fu colonoscopy (due next year) or they want to see her earlier for that. Lumbar foraminal stenosis 11/17/2022 Assessment & Plan (11/17/2022 9:57 PM EST): Fairly controlled sxs with epidural injections Counseled re weight reduction. Obstructive sleep apnea syndrome 11/17/2022 Assessment & Plan (08/29/2024 10:24 AM EDT): Doing well with CPAP machine at night. She needs to continue using CPAP to decreased mobility and mortality. Assessment & Plan (02/07/2024 12:49 PM EDT): Recent sleep study negative for SUMIT. Counseled to stop using CPAP at this time and follow up with me in three months. Assessment & Plan (12/28/2023 11:02 AM EST): -Continue CPAP at bedtime. -Repeat sleep study to evaluate need for CPAP titration change due to weight loss. Assessment & Plan (11/29/2023 2:32 PM EST): She's been out of supplies but thinks they will mail them next week. I told her she needs to paresh it every night. Assessment & Plan (08/11/2023 2:20 PM EDT): Using it every night, sleeps well. Will call DME supplier for compliance log record Needs to continue using it To avoid cardio pulmonary complications, decrease mortality risk. Needs rx for CPAP accessories. Assessment & Plan (05/02/2023 3:29 PM EDT): pt continues to use CPAP, counseled to continue weight reduction Will fu at each visit and probably repeat sleep study in 1-2 years Assessment & Plan (11/17/2022 9:58 PM EST): Continue CPAP use Weight reduction reccomended Primary osteoarthritis of right knee 11/17/2022 Assessment & Plan (04/18/2025 2:36 PM EDT): Doing well on Tylenol as needed Assessment & Plan (04/18/2025 2:35 PM EDT): >>ASSESSMENT AND PLAN FOR CHRONIC HAND PAIN, RIGHT WRITTEN ON 10/09/2024 1:42 PM BY JOSE HENRY Rule out Psoriatic arthritis, see above. Check XR of right hand and FU with Rheumatology. Assessment & Plan (05/02/2023 3:35 PM EDT): use tylenol PRN refer to PT Restrictive lung disease 11/17/2022 Assessment & Plan (06/20/2023 11:01 AM EDT): Doing well, no recent asthma exacerbations. Dyspnea improved significantly sp eight loss surgery. Continue Symbicort daily and Duoneb prn for now. Vitamin D deficiency 11/17/2022 Assessment & Plan (11/29/2023 2:37 PM EST): Not improving despite taking Vit D for 4mo Switch to Vit D 50k U Weekly Order PTH and other labs Assessment & Plan (08/11/2023 12:33 PM EDT): Cont Vit-D supplementation for 3-4 months Assessment & Plan (02/14/2023 11:26 AM EDT): Pt will continue vit D supplementation FU with general surgery Will check vit D and other vitamin, hemoglobin, and ferratin levels in 6 months. Chronic thoracic back pain 04/12/2019 Varicose veins of lower extremity 04/12/2019 Snoring 04/12/2019 Kidney stone 09/26/2018 Polyp of ascending colon 09/26/2018 Pain in female pelvis 08/29/2018 Chronic low back pain 11/23/2017 Assessment & Plan (11/29/2023 2:36 PM EST): Most likely related to DJD spine , exacerbated by weight gain Reccommended acupuncture Use tylenol prn Fu prn Assessment & Plan (05/02/2023 3:34 PM EDT): refer to PT H/O: hysterectomy 11/23/2017 Hemorrhoids 11/23/2017 Assessment & Plan (08/11/2023 2:35 PM EDT): Prescribed Bentyl 10 mg and lidocaine/hydrocort gel bid Avoid constipation Cont wt reduction I will refer to surgery ifsxs are not resolved with above med. Assessment & Plan (06/20/2023 11:03 AM EDT): Avoid constipation, see below. Use Hydrocortisone 2.5% cream FU in 6w, may needs surgical referral Continue weight reduction and physical activity Hiatal hernia 11/23/2017 Overview (08/11/2023): EGD on 01/18/19 at [facility]= History of cholecystectomy 11/23/2017 Nonalcoholic steatohepatitis 11/23/2017 Assessment & Plan (06/20/2023 11:07 AM EDT): LFTs have improved Order Liver US due to recent episode of Light Colored stools Class 3 severe obesity due t o excess calories with serious comorbidity and body mass index (BMI) of 45.0 to 49.9 in adult 11/23/2017 Overview (04/18/2025): Status post bariatric surgery on November 2022/Dr. Willams/ Assessment & Plan (04/18/2025 2:27 PM EDT): Status post bariatric surgery on 2022, plateaued after approximately 35 pounds. Continue Zepbound per red hat linux administrator She has declined to continue follow-up with dietitian for weight management program, will remind her regarding swallow function meals and she could we will continue to replace one of the meals for protein shakes. Follow-up in 6-month Assessment & Plan (04/18/2025 9:01 AM EDT): >>ASSESSMENT AND PLAN FOR MORBID OBESITY (CMS/HCC) WRITTEN ON 11/17/2022 9:59 PM BY BRITNI GREEN MD Has lost 30 lb, fu with weight management program Bariatric surgery on 11/30 Assessment & Plan (04/18/2025 9:01 AM EDT): >>ASSESSMENT AND PLAN FOR MORBID OBESITY (CMS/HCC) WRITTEN ON 07/13/2024 2:19 PM BY HIEU MORRISON Discussed re weight reduction options including exercise, life style modifications, and diet. Recommended to decrease soda and sugary beverage consumption, increase protein intake with meals (at least 1 portion of protein with each meal) to assist with satiety, increase dietary fiber Recommended at least 150 min/week of moderate intensity exercise. DC Phentermine due to side effects and continue Topamax. Will consider Metformin or Ozempic due to Hx of DM. Assessment & Plan (10/09/2024 1:34 PM EST): We had a discussion about having the smaller infraction meals, lower calorie intake, and maybe going back to the pre-surgery regimen, including one meal with the protein shake. She does not want to be referred to a swing saw operator at this time. DC Topamax and start Wellbutrin, FU with me in 1 month. We discussed about GLP injections and will FU next month, I told her that it was very important to treat her anxiety first prior to starting other medications. Assessment & Plan (08/29/2024 2:18 PM EDT): S/P Bariatric Surgery, Plateau after 80 lbs. Weight loss, failed Phentermine. Continue Topamax, follow up in 6 weeks and I will consider Semaglutide. Assessment & Plan (02/07/2024 12:50 PM EDT): Tolerates Phentermine well. Complete three months treament and follow up with me. Add Topamax 25 mg BID wchich will also help with Anxiety. Assessment & Plan (12/28/2023 11:04 AM EST): -Status post bariatric surgery. (Lost 80lbs in first year) -Increased weight due to anxiety and increased appetite. -Start phentermine 37.5 mg. -Follow up in 6 weeks. -Consider wellbutrin. -Advised to make an appointment with [facility] Weight management clinic. Assessment & Plan (06/20/2023 11:10 AM EDT): She's sp bariatric surgery on nov 2022, lost total of 100 lb since Discussed re weight reduction options including exercise, life style modifications, diet, referral to cnc specialist. Discussed re lower calorie intake, increase dietary fiber Resolved Problems Problem Noted Date Diagnosed Date Resolved Date Chronic obstructive pulmonary disease 08/11/2023 11/29/2023 Assessment & Plan (08/11/2023 12:35 PM EDT): Cont Symbicort BID and fu PRN She's a nonsmoker Declines PNA or Covid IZ Eczema of right external ear 05/02/2023 04/18/2025 Assessment & Plan (11/29/2023 2:34 PM EST): Not improving despite steroid and antibiotic cream. Refer to dermatology Assessment & Plan (05/02/2023 3:25 PM EDT): triamcinolone cream PRN Chest pain on exertion 12/01/202204/18 Dyspnea on exertion 12/01/2022 04/18/20 Paresthesia 12/01/2022 04/18/2025 Type 2 diabetes, diet controlled 11/17/2022 10/09/2024 Assessment & Plan (10/09/2024 1:38 PM EST): Controlled. A1c is at goal, probably resolved s/p geriatric surgery. Counseled re more frequent low calorie/carb meals. Encouraged physical activity as tolerated. FU in 6 months. Assessment & Plan (08/29/2024 10:23 AM EDT): Controlled. Continue with lifestyle modifications. Counseled re low salt diet/increase moderate physical activity. Check home BP BIW and prn CP/FERGUSON/CASEY Non smoking patient. Will Consider Semaglutide to help with obesity. Follow up in 3 months. Assessment & Plan (07/13/2024 2:19 PM EDT): Controlled. A1c is at goal. Counseled re more frequent low calorie/carb meals. Check fgstk once daily Encouraged physical activity as tolerated. FU in 3 months. Assessment & Plan (11/29/2023 2:39 PM EST): Resolved after bariatric surgery. Monitor IFG every 6m, see below. Assessment & Plan (06/20/2023 12:18 PM EDT): Continues to be controlled sp bariatric surgery Counseled re more frequent low calorie/carb meals. No fgstk check Encouraged physical activity as tolerated. FU in 6 months. Assessment & Plan (05/02/2023 3:26 PM EDT): Seems to be controlled, A1C was t goal. continue off medicaitons I congratulated her on weight reduction s/p bariatric surgery FU in 6 months Assessment & Plan (02/14/2023 11:25 AM EDT): A1C is normal Counseled re more frequent low calorie/carb meals. Encouraged physical activity as tolerated. FU in 6 months Assessment & Plan (11/17/2022 10:00 PM EST): Controlled. A1c is at goal. Continue with life style modifications, mainly weight reduction, recommend bariatric surgery Counseled re more frequent low calorie/carb meals. Check fgstk 1 daily Encouraged physical activity as tolerated. FU in 3 months. IFG (impaired fasting glucose) 09/26/2018 10/09/2024 Assessment & Plan (12/28/2023 11:06 AM EST): -Continue lifestyle and dietary changes. Assessment & Plan (11/29/2023 2:39 PM EST): Controlled. A1c is at goal. She's off meds after bariatric surgery, unclear if she's having dumping syndrome repsonsible for dizziness. Counseled re more frequent low calorie/carb meals. Check fgstk 3x/wEncouraged physical activity as tolerated. FU in 6 months. Diarrhea 08/29/2018 04/18/2025 Encounters Date Type Department Care Team Description 04/19/2025 Telephone [facility] [address] [place] [phone] Britni Green MD Durable Medical Equipment 04/18/2025 10:00 AM EDT Office Visit [facility] [address] [place] [phone] Cecy Dyer MD Myofascial pain syndrome (Primary Dx) 04/18/2025 9:00 AM EDT Office Visit [facility] [address] [place] [phone] Britni Green MD Essential hypertension (Primary Dx); Type 2 diabetes, diet controlled (CMS/HCC); Hyperparathyroidism (CMS/HCC); Moderate persistent asthma without complication; Class 3 severe obesity due to excess calories with serious comorbidity and body mass index (BMI) of 45.0 to 49.9 in adult; Myofascial pain syndrome; Psoriasiform seborrheic dermatitis; Primary osteoarthritis of right knee; Tendinitis of both hands; Primary osteoarthritis of both hands; Dietary counseling; Exercise counseling 04/18/2025 Travel 04/17/2025 Telephone [facility] [address] [place] [address] Britni Green MD Chart prep 03/28/2025 Refill [facility] [address] [place], [place] [phone] Britni Green MD Chronic rhinitis 03/20/2025 Refill [facility] [address] [place], [place] [phone] Britni Green MD 02/19/2025 Refill [facility] [address] [place] [phone] Britni Green MD 02/18/2025 Refill [facility] [address] [place] [phone] Britni Green MD 02/08/2025 2:45 PM EDT Office Visit [facility] [address] [place] [phone] Luanne Waller MD Psoriasiform dermatitis (Primary Dx); Seborrheic dermatitis, unspecified 02/08/2025 Travel from Last 3 Months Immunizations Immunization Administration Dates Next Due MMR 11/04/1996,03/27/1979 Pfizer Covid-19 Vaccine 12+ 09/22/2021, 1 TD (adult), 2 Lf tetanus tox oid, preservative free, adsorbed 11/04/1996 Tdap 11/23/2017 Family History Medical History Relation Name Comments Diabetes type II Father Heart failure Father htn Father Cancer Maternal Grandmother Breast cancer Mother Idiopathic pulmonary fibrosis Mother Cancer Sister Relation Name Status Comments Father Maternal Grandmother Mother Sister Social History Tobacco Use Types Packs/Day Years Used Date Smoking Tobacco: Never Passive Smoke Exposure: Never Smokeless Tobacco: Never Tobacco Cessation:Counseling Given: Not Answered Alcohol Use Standard Drinks/Week Comments Never 0 (1 standard drink = 0.6 oz pur e alcohol) Depression Answer Date Recorded Patient Health Questionnaire-9 Score 8 10/09/2024 Patient Health Questionnaire-9 Score 8 10/09/2024 Last PHQ-9: Questionnaire Data Not on file 1 12/10/2023 Housing Stability Answer Date Recorded What is your housing situation today? I have jennifer azevedo 04/18/[address] you li ve. Do you have problems with any of the following? None of the above 04/18/2025 Food Insecurity Answer Date Recorded Within the past 12 months, y ou worried that your food would run out before you got money to buy more: Never True 04/18/2025 Within the past 12 months,th e food you bought just didn't last and you didn't have enough money to get more: Never True 10/2025 Transportation Answer Date Recorded In the past 12 months, has l ack of transportation kept you from medical appts, meetings, work or from getting things needed for daily living? No 04/18/2025 Utilities Answer Date Recorded In the past 12 months, has t he electric, gas, oil or water company threatened to shut off services in your home? No 04/18/2025 Depression Answer Date Recorded Patient Health Questionnaire-2 Score 0 04/18/2025 Internet Access Answer Date Recorded Internet Access Q1 No 04/18/2025 Internet Access Q2 I do not want or need it 04/07 Comments No Intention Date Recorded No desire to become (finding) 0 04/18/2025 Sex and Gender Information Value Date Recorded Sex Assigned at Female 09/06/2022 10:32 AM EDT Legal Sex Female 10:32 AM EDT Gender Identity Female 09/06/2022 10:32 AM EDT Sexual Orientation Straight 09/06/2022 10 :32 AM EDT Last Filed Vital Signs Vital Sign Reading Time Taken Comments Blood Pressure 126/72 04/18/2025 9:08 AM EDT Pulse 80 04/18/2025 9:08 AM EDT Temperature 36.3 C (97.4 F) 04/18/2025 9:08 AM EDT Respiratory Rate 12 04/18/2025 9:08 AM EDT Oxygen Saturation 98% 08/29/2024 9:20 AM EDT Inhaled Oxygen Concentration - - Weight 120 kg (264 lb 2 oz) 04/18/2025 9:08 AM E DT Height 160 cm (5' 3 ) 04/18/2025 9:08 AM EDT Body Mass Index 46.79 04/18/2025 9:08 AM EDT Plan of Treatment Upcoming Encounters Date Type Department Care Team (Late st Contact Info) Description 05/15/2025 10:00 AM EDT Office Visit [facility] [address] [place] [address] Evan, Chloe, OD [address] [place] [address] Health Maintenance Due Date Last Done Comments CT Colonography 1978 FIT DNA/Cologuard 1978 FIT 1978 FOBT 1978 HIV Screening 1978 Sigmoidoscopy 1978 Diabetes: Foot Exam 02/14/1988 Alcohol/Substance Use Screening 1990 Hepatitis A Vaccines (1 of 2 - Risk 2-dose series) 1997 Hepatitis B Vaccines (1 of 3 - 19+ 3-dose series) 1997 Pneumococcal Vaccine: Pediatrics (0 to 5 Years) and At-Risk Patients (6 to 49) Years (1 of 2 - PCV) 1997 Lipid Panel 05/19/2024 05/19/2023, 04/15/2021 COVID-19 Vaccine ( season) 2024 09/22/2021, 08/27/2021 Diabetes: Urine Protein Screening 11/17/2024 11/17/2023, 05/19/2023 Influenza Vaccine (Season Ended) 2025 Mammogram 08/03/2025 08/03/2024, 07/09, 01/27/2022, Additional history exists Diabetes: Hemoglobin A1C 10/18/2025 025, 10/09/2024, 07/13/2024, Additional history exists Eye Exam 01/19/2026 01/20/2024, 01/05, 01/20/2024, Additional history exists Depression Screening 04/18/2026 04/18/2025, 10/09/20 24 Disability Screening 04/18/2026 04/18/2025 Family Planning (PISQ) 04/18/2026 04/18/2025 SDOH Screening 04/18/2026 04/18/2025 Tobacco Screening 04/18/2026 04/18/2025 DTaP/Tdap/Td Vaccines (3 - Td or Tdap) 11/23/2027 11/23/2017, 11/04/1996 Zoster Vaccines (1 of 2) 02/14/2028 Colonoscopy 07/05/2034 07/05/2024 Colorectal Cancer Screening 07/05/2034 RSV Patients and Patients Aged 60 years or older (1 - 1-dose 75+ series) 2053 Hepatitis C Screening Completed 04/20/2024 HIB Vaccines Aged Out No longer eligi ble based on patient's age to complete this topic HPV Vaccines Aged Out No longer eligi ble based on patient's age to complete this topic IPV Vaccines Aged Out No longer eligi ble based on patient's age to complete this topic Meningococcal B Vaccine Aged Out No l onger eligible based on patient's age to complete this topic Meningococcal Vaccine Aged Out No nicholas stanislaw eligible based on patient's age to complete this topic RSV under 20 months Aged Out No longe r eligible based on patient's age to complete this topic Rotavirus Vaccines Aged Out No longer eligible based on patient's age to complete this topic Procedures Procedure Name Priority Date/Time Associated Diagnosis Comments POCT GLYCATED HEMOGLOBIN, TOTAL Routine 04/18/2025 9:13 AM EDT Type 2 diabetes, diet controlled (CMS/HCC) POCT GLUCOSE Routine 04/18/2025 9:09 AM EDT Type 2 diabetes, diet controlled (CMS/HCC) BI MAMMOGRAM SCREENING TOMOSYNTHESIS BILATERAL Routine 08/03/2024 9:30 AM EDT HM COLONOSCOPY Routine 07/05/2024 HEPATITIS PANEL, GENERAL Routine 04/20/2024 1:30 PM EDT Psoriasiform dermatitis ALBUMIN, RANDOM URINE W/CREATININE Routine 11/17/2023 3:11 PM EST LIPID PANEL, STANDARD Routine 05/19/2023 11:40 AM EDT Type 2 diabetes, diet controlled ([facility]) from Last 3 Months or Most Recently Relevant to Health Maintenance Results * POCT HGB A1C (04/18/2025 9:13 AM EDT) Hemoglobin A1C 5.1 4.0 - 6.0 % QC Media Lot # [id number] Lot# Expiration Date Blood 04/18/2025 9:13 AM EDT Britni Green MD POINT OF CARE TEST ENTER /EDIT ORDERABLES Final Result * POCT Glucose (04/18/2025 9:09 AM EDT) Glucose Blood, POC 101 60 - 200 mg/dL QC Media Lot # [id number] Lot# Expiration Date 103,025 Blood Capillary blood specimen / Unknown 04/18/2025 9:09 AM EDT Britni Green MD POINT OF CARE TEST ENTER /EDIT ORDERABLES Final Result * BI Mammogram Screening Tomosynthesis Bilateral (08/03/2024 9:30 AM EDT) Anatomical Region Laterality Modality Breast Bilateral Mammography 08/03/2024 9:30 AM EDT Narrative 08/15/2024 9:26 AM EDT [facility] [address] [place] [address] Mammography Report Signed Patient: Mikaela Espinal MR#: [id number] : 1980 Acct:[id number] Age/Sex: 44 / F ADM Date: 08/03/24 Loc: DIANAO Attending Dr: Britni Green MD Ordering Physician: Britni Green MD Results: 1Ne gative Date of Service: 08/03/24 Follow Up: 1 Year From Orig inal Mammogram Procedure(s): MM tomosynthesis screening BI Accession Number(s): [id number] cc: Britni Green MD EXAMINATION: MM SCREENING DIGITAL BREAST TOMOSYNTHESIS, BILATERAL CLINICAL INFORMATION: Screening. Asymptomatic. COMPARISON: Mammography: Comparison is made with available priors TECHNIQUE: Digital breast mammography with tomosynthesis is performed in both the craniocaudal and mediolateral oblique views along with computer-aided detection (CAD). FINDINGS: There are scattered areas of fibroglandular density (ACR BI-RADS breast composition Category b). There are no significant masses, abnormal calcifications, or other abnormalities. MM/MM tomosynthesis screening BI IMPRESSION: No mammographic evidence of malignancy. ASSESSMENT: BI-RADS BI-RADS 1 - Negative RECOMMENDATION: Routine annual mammography screening. 1 year F/U This examination should not preclude the clinical evaluation of a suspicious palpable abnormality. This patient's information was entered into a reminder system with a target due date for their next mammogram. Electronically signed by: Chrissie Barney DO 08/15/2024 09:24 AM EDT Dictated By: Chrissie Barney DO Signed By: <Electronically signed by Chrissie Barney DO in OV> 08/15/24923 DD/ 9 TD/TT: 08/03/24956 Hair Mixer: Procedure Note Donotuseinterpreter, Image - 08/15/2024 [facility] [address] [place] [address] Mammography Report Signed Patient: Mikaela Espinal LMR#: [id number] : 1980Acct:[id number] Age/Sex: 44 / FADM Date: 08/03/24 Loc: HO.MAMMO Attending Dr: Britni Green MD Ordering Physician: Britni Green MDResults: 1Ne gative Date of Service: 08/03/24Follow Up: 1 Year From Orig inal Mammogram Procedure(s): MM tomosynthesis screening BI Accession Number(s): [id number] cc: Britni Green MD EXAMINATION: MM SCREENING DIGITAL BREAST TOMOSYNTHESIS, BILATERAL CLINICAL INFORMATION: Screening. Asymptomatic. COMPARISON: Mammography: Comparison is made with available priors TECHNIQUE: Digital breast mammography with tomosynthesis is performed in both the craniocaudal and mediolateral oblique views along with computer-aided detection (CAD). FINDINGS: There are scattered areas of fibroglandular density (ACR BI-RADS breast composition Category b). There are no significant masses, abnormal calcifications, or other abnormalities. MM/MM tomosynthesis screening BI IMPRESSION: No mammographic evidence of malignancy. ASSESSMENT: BI-RADS BI-RADS 1 - Negative RECOMMENDATION: Routine annual mammography screening. 1 year F/U This examination should not preclude the clinical evaluation of a suspicious palpable abnormality. This patient's information was entered into a reminder system with a target due date for their next mammogram. Electronically signed by: Chrissie Barney DO 08/15/2024 09:24 AM EDT RP Dictated By: Chrissie Barney DO Signed By: <Electronically signed by Chrissie Barney DO in OV> 08/15/24923 DD/ 9 TD/TT: 08/03/2457 Hair Mixer: Britni Green MD IMG BI PROCEDURES Final Result * Hm Colonoscopy (07/05/2024) Pathologist [facility] Colonoscopy Normal Normal Historical Provider HEALTH MAINTENANCE Final Result * Hepatitis A,B,C Profile (04/20/2024 1:30 PM EDT) Pathologist [facility] Hepatitis A IgM Nonreactive Nonreactive [facility] Comment:IgM antibodies to FERGUSON V not detected; does not exclude earlyacute or recovered HAV infection. ~Hepatitis B Surface Antibody NONREACTIVE Nonreactive [facility] Comment:Nonreactive: < 8.00 mIU/mL Hepatitis B Core Antibody Nonreactive Nonreactive [facility] Hepatitis C Antibody Nonreactive Nonreactive [facility] Comment:Antibodies to HCV no t detected; does not exclude early acuteHCV infection. Hepatitis B Surface Ag Negative Negative [facility] Blood Venous blood specimen / Unknown 04/20/2024 1:30 PM EDT 04/20/2024 4:13 PM EDT us Luanne Waller MD LAB BLOOD ORDERABLES Final Re sult Performing Organization Address [facility] Co de Phone Number [facility] [address] [place] [address] [phone] * Albumin, Random Urine W/Creatinine (11/17/2023 3:11 PM EST) Creatinine, Urine 128.56 mg/dL [facility] Microalbumin Urine 11.0 mg/L [facility] Microalbum Creatinine Ratio Ur 8.5 <30 ug/mg cr [facility] Comment:Albumin/Creatinine R atio Reference Ranges: Normal: < 30 ug/mg creatinine Microalbuminuria: 30 - 300 ug/mg creatinineClinical Albuminuria: > 300 ug/mg creatinine 11/17/2023 3:11 PM EST 11/17/2023 4:07 PM EST us Britni Green MD LAB URINE ORDERABLES Fin al Result Performing Organization Address [facility] Co de Phone Number [facility] [address] [place] [phone] * Lipid Panel, Standard (05/19/2023 11:40 AM EDT) Triglycerides 54 mg/dL [facility] Comment:Desirable Triglyceri de: less than 150 mg/dLBorderline High Triglyceride 150-199 mg/dLHigh Triglyceride: 200-499 mg/dLVery High Triglyceride: greater than or equal to 5OO mg/dL Cholesterol 153 mg/dL [facility] Comment:Desirable Cholestero l: less than 200 mg/dLBorderline High Cholesterol: 200-239 mg/dLHigh Cholesterol: greater than 239 mg/dL LDL Cholesterol Calculated 76 mg/dl [facility] Comment:Desirable LDL: less than 100 mg/dLNear Optimal/Above Optimal LDL: 110- 129 mg/dLBorderline High LDL: 130-159 mg/dLHigh LDL: 160-189 mg/dLVery High LDL: greater than or equal to 190 mg/dL HDL Cholesterol 67 mg/dL [facility] Comment:Desirable HDL: great er than 40 mg/dL Note: This HDL assay may give artificially low results in patients with liver disease. 05/19/2023 11:4 0 AM EDT 05/19/2023 11:40 AM EDT [facility] External Provider LAB BLO OD ORDERABLES Final Result [facility] [address] [place] [phone] from Last 3 Months or Most Recently Relevant to Health Maintenance Insurance STANDARD Care Teams Carpenter Prototype Relationship Specialty Start Date End Date Britni Green MD [address] [place] [phone] PCP - General Family Medicine 06/19/18
== END 2025-05-06 13:24 | disposition home or self-care (01) ==
LOC: HO.HUSH 11:48
PROVIDERS: PCP Internal Medicine; Visit Provider Urology
DX: Z13.9 Encounter for screening, unspecified (principal)

== ENCOUNTER → 2025-05-06 11:47 | Outpatient (BNVA) | payer MEDICAID, SELFPAY | PROVIDERS: PCP Internal Medicine; Visit Provider Urology | DX: I10 Essential (primary) hypertension (principal) | CPT/HCPCS: 81003 ==

== ENCOUNTER 2025-05-22 09:47 | Outpatient (AMB) | payer MEDICAID, SELFPAY ==
[2025-05-22 09:48] VITALS: BP 100/72; PULSE 88; O2SAT 97; BMI 45.9
--- NOTE | 2025-05-22 09:48 | HO.NEPHOV ---
Vital Signs 05/22/25 09:48 Height 5 ft 3 in Weight 259 lb BMI 45.9 BP 100/72 Blood Pressure Location Lt radial Position Sitting Pulse 88 Pulse Source Pulse Oximeter Pulse Oximetry (%) 97 Intake Visit Reasons: INP: Proteinuria-Conf Correctional Supervisor Lieutenant Required: Yes Correctional Supervisor Lieutenant Name: Nii Guthrie Accompanied by: Self / Same As Patient Allergies Cortisone Allergy (Intermediate, Uncoded 05/02/24 14:17) itching,hives HPI Comments Details: 45-year-old lady with past medical history of hypertension, morbid obesity, SUMIT on CPAP, status post laparoscopic sleeve gastrectomy he is here to establish care for the evaluation of proteinuria. HTN- under control after bariatric surgery, not on any medications morbid obesity- 2 years ago lap sleeve gastrectomy kidney stones- before pandemic, last time was year and half ago, no surgeries. has recent [employer] reports in scanned reports. [facility] Medical History Steatosis, liver Arthritis GERD (gastroesophageal reflux disease) HTN (hypertension) Asthma SUMIT on CPAP Surgical History S/P laparoscopic sleeve gastrectomy H/O: hysterectomy H/O tubal ligation Hx of cholecystectomy Hx of colonoscopy Hx of section Family History Mother Hypertension Father Diabetes Hypertension Heart problem Son No problems noted. Son No problems noted. Daughter No problems noted. Daughter No problems noted. Social History Household Members: Family Housing: House Are you a primary rn wound care to a significant other at home: No Do you presently have visiting nurse or other home services: No 75 years or older and lives alone: No Alcohol intake: never Comment: patient wears a brace on right knee, r/t arthritis Patient Tobacco Use Status: Never used Tobacco Review of Systems Const Details: Const Denies body aches, Denies fatigue Eyes Denies blurry vision and Denies change in vision ENT Denies bleeding gums and Denies change in voice Card Denies chest pain and Denies leg ulcers Resp Denies cough and Denies excessive phlegm production GI Denies abdominal pain and Denies bloating Denies hematuria, Denies urinary frequency and Denies difficulty voiding Neuro Denies Neuro-related abnormal movements, Denies abnormal gait Psych Denies behavioral changes and Denies change in appetite Endo Denies change in body appearance, Denies cold intolerance, Denies excessive sweating and Denies fatigue Physical Exam Vital Signs: Last Vital Signs Pulse 88 05/22/25 09:48 BP 100/72 05/22/25 09:48 Pulse Ox 97 05/22/25 09:48 BMI result Body Mass Index 45.9 General: Morbidly obese lady, conmfortable not in any acute distress Nutritional Appearance: well nourished and morbid obesity Eyes: appearance normal, both eyes and all related structures; Alignment and Position: alignment normal and position normal Neck: No lymphadenopathy, no thyromegaly Resp: bilateral air entry equal, no added sounds present Cardio: Regular rate, regular rhythm; Heart sounds: S1 normal heart sound present and S2 normal heart sound present, no edema GI: soft, nontender, no guarding, no hepatosplenomegaly : bladder normal to inspection, bladder normal to palpation, no renal angle tenderness Skin: no rashes or lesions noted and elasticity normal Neuro: oriented to person, oriented to place, oriented to time and moves all extremities Results Reviewed Nephrology Results: Hgb, (12.0-16.0) 12.3 g/dl 07/13/24 WBC, (4.8-10.8) 5.7 X10*3/uL 07/13/24 Plt Count, (160-400) 237 X10*3/uL 07/13/24 Sodium, (135-145) 143 mmol/L 06/22/24 Potassium, (3.3-5.1) 4.0 mmol/L 06/22/24 Chloride, (96-108) 108 mmol/L 06/22/24 Carbon Dioxide, (22-29) 28 mmol/L 06/22/24 BUN, (9-16) 14 mg/dL 06/22/24 Creatinine, (0.5-1.4) 0.65 mg/dL 06/22/24 Calcium, (8.4-10.2) 9.0 mg/dL 06/22/24 Phosphorus, (2.7-4.5) 3.0 mg/dL 06/22/24 PTH Intact, (8.7-77.1) 85.7 pg/mL H 06/22/24 Renal US 01/18/25 Assessment & Plan Assessment & Plan (1) HTN (hypertension), benign: Code(s): I10 - Essential (primary) hypertension Category: Medical (2) Morbid obesity: Code(s): E66.01 - Morbid (severe) obesity due to excess calories Category: Medical (3) History of kidney stones: Code(s): Z87.442 - Personal history of urinary calculi Category: Medical (4) SUMIT on CPAP: Code(s): G47.33 - Obstructive sleep apnea (adult) (pediatric); Z99.89 - Dependence on other enabling machines and devices Category: Medical (5) Proteinuria: Code(s): R80.9 - Proteinuria, unspecified Category: Medical Plan Proteinuria: - will get urinalysis, UPCR and UACR to quantify proteinuria - possibly related to morbid obesity - will rule out other etiologies including HIV, hepatitis panel, BRITNI and serum free light chains - will follow her back in a month with the results Kidney stones: - possibly secondary to calcium oxalate stones at the super saturations for calcium oxalate was high last year, he is significantly better this year but her super calculations for uric acid is high this year. Her last symptoms of stone was a year and half ago/ - will get uric acid, calcium and phos levels - urine pH: 5.621, will add bicitra next visit - continue Vitamin D supplements, will recheck vitamin D and PTH levels - advised the patient for fluid intake at least 3 L per day, more so in summer - low-sodium diet, increased dairy products with the meals, increased tonawanda and citrous intake (without added salt sugar) - decrease animal protein, avoid sugar sweetened sodas, fruit punch, grapefruit and large volume cranberry juice - avoid high oxalate food: spinach rhubarb, nuts, beets, tea, chocolate and soy products Total time spent is about 45 minutes, 15 minutes on chart review, 20 minutes on the encounter and 10 minutes on the documentation. Orders: Orders Hepatitis B,C Profile Today I10 - Essential (primary) hypertension, N20.1 - Calculus of ureter, R80.9 - Proteinuria, unspecified HIV Ab/Ag Today I10 - Essential (primary) hypertension, N20.1 - Calculus of ureter, R80.9 - Proteinuria, unspecified [place]/Lambda Light Chain Serum Today I10 - Essential (primary) hypertension, N20.1 - Calculus of ureter, R80.9 - Proteinuria, unspecified Microalbumin, Random (w Creat) Today I10 - Essential (primary) hypertension, N20.1 - Calculus of ureter, R80.9 - Proteinuria, unspecified UA and rflx microscopic Today I10 - Essential (primary) hypertension, N20.1 - Calculus of ureter, R80.9 - Proteinuria, unspecified Total Protein Urine Random Today I10 - Essential (primary) hypertension, N20.1 - Calculus of ureter, R80.9 - Proteinuria, unspecified Creatinine Urine Today I10 - Essential (primary) hypertension, N20.1 - Calculus of ureter, R80.9 - Proteinuria, unspecified Phosphorus Today E66.01 - Morbid (severe) obesity due to excess calories, I10 - Essential (primary) hypertension Uric Acid Today E66.01 - Morbid (severe) obesity due to excess calories, I10 - Essential (primary) hypertension Parathyroid Hormone Intact Today E66.01 - Morbid (severe) obesity due to excess calories, I10 - Essential (primary) hypertension Vitamin D 25-OH Total Today E66.01 - Morbid (severe) obesity due to excess calories, I10 - Essential (primary) hypertension Basic Metabolic Panel Today R80.9 - Proteinuria, unspecified BRITNI Reflex Titer and Pattern Today I10 - Essential (primary) hypertension, N20.1 - Calculus of ureter, R80.9 - Proteinuria, unspecified Scribe Plan - Not visible on output: Kidney stones: - secondary to calcium oxalate/phosphate, uric acid stones - urine pH: - serum calcium: , urine calcium: - PTH: Vitamin-D level: - will start the patient on thiazides, vitamin D and bicitra - advised the patient for fluid intake at least 3 L per day, more so in summer - low-sodium diet, increased dairy products with the meals, increased [place]anda and citrous intake (without added sugar) - decrease animal protein, avoid sugar sweetened sodas, fruit punch, grapefruit and large volume cranberry juice high oxalate food: spinach rhubarb, nuts, beets, tea, chocolate and soy products high uric acid food: red meat, organ meats, shell fish, soft drinks calcium phosphate stone: overuse of citrate or bicarbonate Coding Level of Care Code New Pt Level 4 (72309) Diagnoses HTN (hypertension), benign I10 Morbid obesity E66.01 History of kidney stones Z87.442 SUMIT on CPAP G47.33; Z99.89 Proteinuria R80.9
--- OUTSIDE RECORDS SUMMARY | 2025-05-22 10:21 | XMS_ITS | Clinical Summary ---
Author Organization [employer] Address [address] [place] [address] Care Team Providers Care Dumping Machine Operator Name Role Phone Britni Green MD Primary [...] Active beta carotene (vitamin A) 3 MG (04716 UT) capsule Take 10,000 Units by mouth in the morning. Active cyclobenzaprine (Flexeril) 10 MG tabletIndication s:Lumbar paraspinal muscle spasm TOME NISH TABLETA TODOS [place] AL ACOSTARSE 30 tablet 3 03/22/20 23 Active Galzin 25 MG capsule TAKE 1 CAPSULE (25 MG) ORALLY DAILY 06/06/20 23 Active omeprazole (PriLOSEC) [address] capsule Take 40 mg by mouth. 01/26/20 19 Active hydrocortisone (Anusol-HC) 2.5 % rectal creamIndications :Grade II hemorrhoids INSERT INTO THE RECTUM 2 TIMES DAILY. 30 g 3 03/02/20 24 Active betamethasone, augmented, (Diprolene) 0.05 % lotionIndication s:Psoriasiform dermatitis Apply topically Once per day. 30 mL 2 04/20/20 24 Active ergocalciferol (Vitamin D2) 1.25 MG (00128 UT) capsuleIndicatio ns:Vitamin D deficiency TAKE 1 CAPSULE BY MOUTH ONCE A WEEK 12 capsule 07/04/20 24 Active Linzess 145 MCG capsuleIndicatio ns:Vitamin D deficiency TOME 1 CAPSULA POR VIA ORAL BEFORE BREAKFAST.DO NOT CRUSH OR CHEW 30 capsule 11 08/03/20 24 Active dicyclomine (Bentyl) 10 MG capsuleIndicatio ns:Grade II hemorrhoids TAKE 1 CAPSULE BY MOUTH THREE TIMES A DAY 270 capsule 11/05/20 24 Active budesonide-formo terol (Symbicort) 160-4.5 MCG/ACT inhalerIndicatio ns:Moderate persistent asthma without complication INHALE 2 PUFFS BY MOUTH TWICE DAILY IN THE MORNING AND EVENING. 10.2 each 3 01/19/20 25 Active Combivent Respimat 20-100 MCG/ACT inhalerIndicatio ns:Moderate persistent asthma without complication INHALE 1 PUFF IN THE MORNING, AT NOON, IN THE EVENING, AND AT BEDTIME. 4 g 11 01/19/20 25 Active ketoconazole (NIZOral) 2 % shampooIndicatio ns:Psoriasiform dermatitis Apply topically 3 (three) times a week. 120 mL 3 02/09/20 25 Active Clobetasol Propionate 0.05 % shampooIndicatio ns:Psoriasiform dermatitis APPLY SHAMPOO DAILY 118 mL 1 02/09/20 25 Active Fluocinolone Acetonide Scalp ([place]-Smoothe/F S Scalp) 0.01 % oilIndications:P soriasiform dermatitis Use 2-3 times weekly at night and apply covers 118.28 mL 2 02/09/20 25 Active methotrexate 2.5 MG tabletIndication s:Psoriasiform dermatitis Take 6 tablets (15 mg total) by mouth 1 (one) time per week. Follow directions carefully, and ask to explain any part you do not understand. Take exactly as directed. 24 tablet 11 02/09/20 25 Active folic acid (Folvite) 1 MG tabletIndication s:Psoriasiform dermatitis Take 1 tablet (1 mg) by mouth Once per day. 30 tablet 11 02/09/20 25 026 Active gabapentin (Neurontin) 300 MG capsule TAKE 1 CAPSULE POR VIA ORAL AL ACOSTARSE 90 capsule 1 02/21/20 25 Active cetirizine (ZyrTEC) 10 MG tabletIndication s:Chronic rhinitis TAKE 1 TABLET BY MOUTH EVERY MORNING 90 tablet 1 03/28/20 25 Active ipratropium-albu terol (Duo-Neb) 0.5-2.5 mg/3 mL nebulizer solution INHALE 1 AMPULE BY NEBULIZER EVERY 6 HOURS 180 mL 03/28/20 25 Active buPROPion SR (Wellbutrin SR) 200 MG 12 hr tablet Take 1 tablet (200 mg) by mouth 2 times daily. Do not crush, chew, or split. 180 tablet 2 04/18/20 25 Active meloxicam (Mobic) 15 MG tablet TAKE 1 TABLET BY MOUTH EVERY DAY 30 tablet 05/09/20 25 Active meloxicam (Mobic) 15 MG tablet TAKE 1 TABLET BY MOUTH EVERY DAY 30 tablet 03/20/20 25 025 Discontinued Active Problems Problem Noted Date Diagnosed Date [...] I gave her information about [facility] therapy clinic in [place] to call for appointment, a referral was [...] EDT): Probably Fibromyalgia, will follow up with Escalator Constructor. Will increase Topamax to 100 mg QHS [...] simple cysts, seen on renal US 03/2024 ([facility]), no need to fu. Chronic gastritis without bleeding 11/29/2023 Overview (11/29/2023): Had EGD on 2019 ([facility]). Assessment & Plan (11/29/2023 2:41 PM EST): Had EGD on 2019 ([facility]). She maybe symptomatic. Use sucralfate tid ac [...] daily, use albuterol as needed Follow-up with banquet manager Assessment & Plan (11/29/2023 2:33 PM EST): [...] possibly Fibromyalgia. Continue Topamax and refer to . Assessment & Plan (05/02/2023 3:24 PM EDT): most likely related to current house hold situations r/o MDD pt has an appointent with [facility] counselor. FU in 6 weeks with me [...] of a mild psoriasis follow up with centrifugal extractor operator. Continue Methotrexate mg per week and follow up with centrifugal extractor operator. Essential hypertension 11/17/2022 Assessment & Plan (04/18/2025 [...] 11/17/2022 Overview (08/11/2023): EGD on 01/18/19 At [facility]: esophagitis + gastritis + duodenitis Assessment & Plan (02/14/2023 11:23 AM EDT): Most likely exacerbated by recent gastric sleeve Recommended smaller in fraction meals go back to liquid diet advance PO diet every other week use pantoprazole x2 days and sucralfate PRN encouraged to continue weight reduction Hyperparathyroidism 11/17/2022 Assessment & Plan (04/18/2025 2:15 PM EDT): Seen by road design draftsperson, he is resistant to vitamin D supplementation. Obtain POC from [facility] endocrinology office Assessment & Plan (07/13/2024 2:18 [...] 11/23/2017 Overview (08/11/2023): EGD on 01/18/19 at [facility]= History of cholecystectomy 11/23/2017 Nonalcoholic steatohepatitis [...] after approximately 35 pounds. Continue Zepbound per road design draftsperson She has declined to continue follow-up with [...] not want to be referred to a mri technician at this time. DC Topamax and start [...] wellbutrin. -Advised to make an appointment with [facility] Weight management clinic. Assessment & Plan (06/20/2023 11:10 AM EDT): She's sp bariatric surgery on nov 2022, lost total of 100 lb since Discussed re weight reduction options including exercise, life style modifications, diet, referral to endocrinology specialist. Discussed re lower calorie intake, increase [...] exertion 12/01/202204/18 Dyspnea on exertion 12/01/2022 04/18/20 25 Paresthesia 12/01/2022 04/18/2025 Type 2 diabetes, diet [...] Encounters Date Type Department Care Team Description 05/15/2025 10:00 AM EDT Office Visit [facility] OPTOMETRY [address] [place] [address] Evan, Chloe, OD Retinal hole of both eyes (Primary Dx); Lattice degeneration of both retinas; White without pressure of peripheral retina of right eye; Diabetes type 2, 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); Presbyopia; Vitreous syneresis of both eyes; Dry eyes 05/15/2025 Travel 05/15/2025 Refill [facility] MEDICINE [address] [place] [address] Britni Green MD Psoriasiform dermatitis 05/09/2025 Telephone [facility] [address] [place] [address] Britni Green MD July05/09/2025 Refill [facility] [address] [place] [address] Britni Green MD 04/19/2025 Telephone [facility] MED[facility]INE [address] [place] [phone] Britni Green MD Durable Medical Equipment 04/18/2025 10:00 AM EDT Office Visit [facility] MED[facility]INE [address] [place] [phone] Cecy Dyer MD Myofascial pain syndrome (Primary Dx) 04/18/2025 9:00 AM EDT Office Visit [address] [address] Britni Green MD Essential hypertension (Primary Dx); [...] counseling; Exercise counseling 04/18/2025 Travel 04/17/[address] [phone] Britni Green MD Chart prep 03/28/2025 Refill [facility] [address] [place] [address] [phone] Britni Green MD Chronic rhinitis 03/20/[address] [address] Britni Green MD from Last 3 Months Immunizations Immunization Administration [...] Care Team (Late st Contact Info) Description 07/30/2025 9:45 AM EDT Office Visit [facility] [address], [place] [phone] Britni Green MD [address] [place] [address] Health Maintenance Due Date Last Done Comments [...] Protein Screening 11/17/2024 11/17/2023, 05/19/2023 Influenza Vaccine (#1) 2025 Mammogram 08/03/2025 08/03/2024, 07/09, 01/27/2022, Additional history exists Diabetes: Hemoglobin A1C 10/18/2025 025, 10/09/2024, 07/13/2024, Additional history exists Depression Screening 04/18/2026 04/18/2025, 10/09/20 24 Disability Screening 04/18/2026 04/18/2025 Family Planning (PISQ) 04/18/2026 04/18/2025 SDOH Screening 04/18/2026 04/18/2025 Tobacco Screening 04/18/2026 04/18/2025 Eye Exam 05/15/2027 05/15/2025, 07/0 07/2025, 05/15/2025, Additional history exists DTaP/Tdap/Td Vaccines (3 - Td or Tdap) [...] AM EDT Type 2 diabetes, diet controlled ([facility]/HCC) from Last 3 Months or Most Recently [...] AM EDT Narrative 08/15/2024 9:26 AM EDT [facility] [address] [place] [address] Mammography Report Signed Patient: Mikaela Espinal MR#: [id number] : 1980 Acct:[id number] Age/Sex: 44 / F ADM Date: 08/03/24 Loc: HO.MAMMO Attending Dr: Britni Green MD Ordering Physician: Britni Green MD Results: 1Ne gative Date of Service: 08/03/24 Follow Up: 1 Year From Orig inal Mammogram Procedure(s): MM tomosynthesis screening BI Accession Number(s): [id number] cc: Britni Green MD EXAMINATION: MM SCREENING [...] in OV> 08/15/24923 DD/ 9 TD/TT: 08/03/2457 Post Office Manager: Procedure Note Donotuseinterpreter, Image - 08/15/2024 [facility] [address] [place] [address] Mammography Report Signed Patient: Mikaela Espinal LMR#: [id number] : 1980Acct:[id number] Age/Sex: 44 / FADM Date: 08/03/24 Loc: MARGIE.MAMMO Attending Dr: Britni Green MD Ordering Physician: Britni Green MDResults: 1Ne gative Date of Service: 08/03/24Follow Up: 1 Year From Orig inal Mammogram Procedure(s): MM tomosynthesis screening BI Accession Number(s): [id number] cc: Britni Green MD EXAMINATION: MM SCREENING [...] in OV> 08/15/24923 DD/ 9 TD/TT: 08/03/24956 Post Office Manager: Britni Green MD IMG BI PROCEDURES Final Result * Hm Colonoscopy (07/05/2024) Colonoscopy Normal Normal Historical Provider HEALTH MAINTENANCE Final Result * Hepatitis A,B,C Profile (04/20/2024 1:30 PM EDT) Hepatitis A IgM Nonreactive Nonreactive [facility] Comment:IgM antibodies to FERGUSON V not detected; does not exclude earlyacute or recovered HAV infection. ~Hepatitis B Surface Antibody NONREACTIVE Nonreactive [facility] Comment:Nonreactive: < 8.00 mIU/mL Hepatitis B Core Antibody Nonreactive Nonreactive [facility] Hepatitis C Antibody Nonreactive Nonreactive [facility] Comment:Antibodies to HCV no t detected; does not exclude early acuteHCV infection. Hepatitis B Surface Ag Negative Negative [facility] Blood Venous blood specimen / Unknown 04/20/2024 1:30 PM EDT 04/20/2024 4:13 PM EDT us Luanne Waller MD LAB BLOOD ORDERABLES Final Re sult Performing Organization Address City/[facility]/ZIP Co de Phone Number [facility] [address] [place] [phone] * Albumin, Random Urine W/Creatinine (11/17/2023 3:11 PM EST) Creatinine, Urine 128.56 mg/dL [facility] Microalbumin Urine 11.0 mg/L [facility] Microalbum Creatinine Ratio Ur 8.5 <30 ug/mg cr [facility] Comment:Albumin/Creatinine R atio Reference Ranges: Normal: < 30 ug/mg creatinine Microalbuminuria: 30 - 300 ug/mg creatinineClinical Albuminuria: > 300 ug/mg creatinine 11/17/2023 3:11 PM EST 11/17/2023 4:07 PM EST us Britni Green MD LAB URINE ORDERABLES Fin al Result Performing Organization Address City/[facility]/ZIP Co de Phone Number [facility] [address] [place] [phone] * Lipid Panel, Standard (05/19/2023 11:40 AM EDT) Triglycerides 54 mg/dL [facility] Comment:Desirable Triglyceri de: less than 150 mg/dLBorderline High Triglyceride 150-199 mg/dLHigh Triglyceride: 200-499 mg/dLVery High Triglyceride: greater than or equal to 5OO mg/dL Cholesterol 153 mg/dL [facility] Comment:Desirable Cholestero l: less than 200 mg/dLBorderline High Cholesterol: 200-239 mg/dLHigh Cholesterol: greater than 239 mg/dL LDL Cholesterol Calculated 76 mg/dl [facility] Comment:Desirable LDL: less than 100 mg/dLNear Optimal/Above Optimal LDL: 110- 129 mg/dLBorderline High LDL: 130-159 mg/dLHigh LDL: 160-189 mg/dLVery High LDL: greater than or equal to 190 mg/dL HDL Cholesterol 67 mg/dL [facility] Comment:Desirable HDL: great er than 40 mg/dL Note: This HDL assay may give artificially low results in patients with liver disease. 05/19/2023 11:4 0 AM EDT 05/19/2023 11:40 AM EDT us [facility] External Provider LAB BLO OD ORDERABLES Final Result Performing Organization Address City/State/[facility] Co de Phone Number [facility] [address] [place] [phone] from Last 3 Months or Most Recently Relevant to Health Maintenance Insurance STANDARD Care Teams Dumping Machine Operator Relationship Specialty Start Date End Date Britni Green MD [address] [place] [phone] PCP - General Family Medicine 06/19/18
== END 2025-05-22 10:38 | disposition home or self-care (01) ==
LOC: HO.HKAS 09:47
PROVIDERS: PCP Internal Medicine; Referring Provider Urology; Visit Provider Internal Medicine Critical Care Medicine
DX: I10 Essential (primary) hypertension (principal); E66.01 Morbid (severe) obesity due to excess calories; Z87.442 Personal history of urinary calculi; G47.33 Obstructive sleep apnea (adult) (pediatric); Z99.89 Dependence on other enabling machines and devices; R80.9 Proteinuria, unspecified
CPT/HCPCS: 99204

== ENCOUNTER 2025-05-22 09:47 | Outpatient (REF) | payer MEDICAID, SELFPAY ==
[2025-05-22 14:01] LABS: Appearance Urine Cloudy; Glucose Urine UA Negative (Negative); PH 6.0 (5.0-9.0); Specific Gravity - Urine 1.025 (1.005-1.025)
[2025-05-22 14:29] LABS: Parathyroid Hormone Intact 102.0 pg/mL (8.7-77.1)
[2025-05-22 14:34] LABS: Anion Gap 11 (12-20); Blood Urea Nitrogen 15 mg/dL (9-16); Calcium 8.6 mg/dL (8.4-10.2); Carbon Dioxide 28 mmol/L (22-29); Chloride 105 mmol/L (96-108); Estimated Glomerular Filt Rate > 60; Potassium 3.5 mmol/L (3.3-5.1); Sodium 140 mmol/L (135-145); Uric Acid 5.6 mg/dL (2.4-5.7)
[2025-05-22 14:48] LABS: Microalbum/Creatinine Ratio Ur 5.3 ug/mg cr (<30); Total Protein Urine Random 13 mg/dL (<12)
[2025-05-23 05:16] LABS: HBS Num1 2.24 mIU/mL (0-7.99); HBc Num1 0.07 S/CO (0.00-0.79); HBsAGNum1 0.42 S/CO (0.00-0.99); HIV Num 1 0.05 S/CO (0.00-0.99); Hepatitis B Surface Antigen Negative (Negative); ~HepC Num1 0.12 S/CO (0.00-0.79); ~Hepatitis B Surface Antibody NONREACTIVE (Nonreactive); ~Hepatitis C Antibody Nonreactive (Nonreactive)
[2025-05-27 10:38] LABS: Anti Nuclear Antibody Screen NEGATIVE (NEGATIVE)
[2025-05-28 17:19] LABS: Kappa, Serum 400 mg/dL (176-443); Kappa/Lambda Ratio, Serum 2.02 (1.29-2.55); Lambda, Serum 198 mg/dL (91-240)
== END 2025-05-22 09:48 | disposition home or self-care (01) ==
LOC: HO.HKASLDS 09:47
PROVIDERS: PCP Internal Medicine; Referring Provider Urology; Visit Provider Internal Medicine Critical Care Medicine
DX: I10 Essential (primary) hypertension (principal); N20.1 Calculus of ureter; R80.9 Proteinuria, unspecified; E66.01 Morbid (severe) obesity due to excess calories; G47.33 Obstructive sleep apnea (adult) (pediatric); Z99.89 Dependence on other enabling machines and devices; Z87.442 Personal history of urinary calculi; Z68.42 Body mass index [BMI] 45.0-49.9, adult; Z11.4 Encounter for screening for human immunodeficiency virus [HIV]; Z11.59 Encounter for screening for other viral diseases
CPT/HCPCS: 36415; 80048; 81003; 82043; 82306; 82570; 83883; 83970; 84100; 84156; 84550; 86038; 86704; 86706; 86803; 87340; 87389; 99202

== ENCOUNTER 2025-06-11 10:17 | Outpatient (AMB) | payer MEDICAID, SELFPAY ==
--- NOTE | 2025-06-11 10:24 | HO.NEPHOV_ITS ---
Vital Signs 06/11/25 10:25 Height 5 ft 3 in Weight 258 lb BMI 45.7 BP 114/80 Blood Pressure Location Lt brachial Position Sitting Pulse 90 Pulse Source Pulse Oximeter Pulse Oximetry (%) 97 Oxygen Delivery Method Room Air Intake Visit Reasons: 1mon f/u-LVM Sheep Or Calf Grader Required: Yes Sheep Or Calf Grader Language: Associate Professor Of Communication Services: Sheep Or Calf Grader Present Sheep Or Calf Grader Name: Marcial Gonzalez Information Interpreted: clinical only Accompanied by: Self / Same As Patient Allergies Cortisone Allergy (Intermediate, Uncoded 05/02/24 14:17) itching,hives HPI Comments Details: 45-year-old lady with past medical history of hypertension, morbid obesity, SUMIT on CPAP, status post laparoscopic sleeve gastrectomy he is here for followup of proteinuria. nothing new HTN- under control after bariatric surgery, not on any medications morbid obesity- 2 years ago lap sleeve gastrectomy kidney stones- before pandemic, last time was year and half ago, no surgeries. has recent [employer] reports in scanned reports. PFS Medical History Steatosis, liver Arthritis GERD (gastroesophageal reflux disease) HTN (hypertension) Asthma SUMIT on CPAP Surgical History S/P laparoscopic sleeve gastrectomy H/O: hysterectomy H/O tubal ligation Hx of cholecystectomy Hx of colonoscopy Hx of section Family History Mother Hypertension Father Diabetes Hypertension Heart problem Son No problems noted. Son No problems noted. Daughter No problems noted. Daughter No problems noted. Social History Household Members: Family Housing: House Are you a primary care transition manager to a significant other at home: No Do you presently have visiting nurse or other home services: No 75 years or older and lives alone: No Alcohol intake: never Comment: patient wears a brace on right knee, r/t arthritis Patient Tobacco Use Status: Never used Tobacco Review of Systems Const Details: Const Denies body aches, Denies chills Eyes Denies blurry vision and Denies change in vision ENT Denies bleeding gums and Denies change in voice Card Denies chest pain and Denies leg ulcers Resp Denies cough and Denies excessive phlegm production GI Denies abdominal pain and Denies bloating Denies hematuria, Denies urinary frequency and Denies difficulty voiding Musc Denies abnormal gait Neuro Denies Neuro-related abnormal movements, Denies abnormal gait and Denies behavioral changes Psych Denies behavioral changes and Denies change in appetite Endo Denies change in body appearance, Denies cold intolerance Physical Exam Vital Signs: Last Vital Signs Pulse 90 06/11/25 10:25 BP 114/80 06/11/25 10:25 Pulse Ox 97 06/11/25 10:25 Oxygen Delivery Method Room Air 06/11/25 10:25 BMI result Body Mass Index 45.7 General: morbidly obese lady, pleasant and comfortable Nutritional Appearance: well nourished and overweight Eyes: appearance normal, both eyes and all related structures; Alignment and Position: alignment normal and position normal Neck: No lymphadenopathy, no thyromegaly Resp: bilateral air entry equal, no added sounds present Cardio: Regular rate, regular rhythm; Heart sounds: S1 normal heart sound present and S2 normal heart sound present, no edema GI: soft, nontender, no guarding, no hepatosplenomegaly : bladder normal to inspection, bladder normal to palpation, no renal angle tenderness Skin: no rashes or lesions noted and elasticity normal Neuro: oriented to person, oriented to place, oriented to time and moves all extremities Results Reviewed Nephrology Results: Hgb, (12.0-16.0) 12.3 g/dl 07/13/24 WBC, (4.8-10.8) 5.7 X10*3/uL 07/13/24 Plt Count, (160-400) 237 X10*3/uL 07/13/24 Sodium, (135-145) 140 mmol/L 05/22/25 Potassium, (3.3-5.1) 3.5 mmol/L 05/22/25 Chloride, (96-108) 105 mmol/L 05/22/25 Carbon Dioxide, (22-29) 28 mmol/L 05/22/25 BUN, (9-16) 15 mg/dL 05/22/25 Creatinine, (0.5-1.4) 0.66 mg/dL 05/22/25 Calcium, (8.4-10.2) 8.6 mg/dL 05/22/25 Phosphorus, (2.7-4.5) 2.8 mg/dL 05/22/25 PTH Intact, (8.7-77.1) 102.0 pg/mL H 05/22/25 Urine Protein, (Neg-Trace) Negative mg/dL 05/22/25 Urine Creatinine 278.70 mg/dL 05/22/25 Renal US 01/18/25 Assessment & Plan Assessment & Plan (1) Ureteral calculus, right: Code(s): N20.1 - Calculus of ureter Category: Medical (2) History of kidney stones: Code(s): Z87.442 - Personal history of urinary calculi Category: Medical Plan Proteinuria: - urinalysis normal, UACR 5.3, UPCR < 50mg/gm - creatinine 0.66 - possibly related to morbid obesity - negative HIV, hepatitis panel, BRITNI and serum free light chains Kidney stones: - possibly secondary to calcium oxalate stones at the super saturations for calcium oxalate was high last year, but it is significantly better this year but her super calculations for uric acid is high this year. Her last symptoms of stone was a year and half ago. - vitamin D 40.3, PTH 102.0, calcium 8.6, phos 2.8, uric acid 5.6. Will get repeat PTH, Vitamin D2 and D3 levels, Calcium and Phos in 6 months. She might need a D3 supplement. - urine pH: 6.0 - continue Vitamin D supplements - advised the patient for fluid intake at least 3 L per day, more so in summer - low-sodium diet, increased dairy products with the meals, increased pamunkey and citrous intake (without added salt sugar) - decrease animal protein, avoid sugar sweetened sodas, fruit punch, grapefruit and large volume cranberry juice - avoid high oxalate food: spinach rhubarb, nuts, beets, tea, chocolate and soy products Orders: Orders Microalbumin, Random (w Creat) 6 Months N20.1 - Calculus of ureter, Z87.442 - Personal history of urinary calculi Total Protein Urine Random 6 Months N20.1 - Calculus of ureter, Z87.442 - Personal history of urinary calculi Phosphorus 6 Months N20.1 - Calculus of ureter, Z87.442 - Personal history of urinary calculi Basic Metabolic Panel 6 Months N20.1 - Calculus of ureter, Z87.442 - Personal history of urinary calculi Parathyroid Hormone Intact 6 Months N20.1 - Calculus of ureter, Z87.442 - Personal history of urinary calculi Vitamin D 25-OH (D2 and D3) 6 Months N20.1 - Calculus of ureter, Z87.442 - Personal history of urinary calculi Coding Level of Care Code Est Pt Level 4 (08211) Diagnoses Ureteral calculus, right N20.1 History of kidney stones Z87.442
[2025-06-11 10:25] VITALS: BP 114/80; PULSE 90; O2SAT 97; BMI 45.7
--- OUTSIDE RECORDS SUMMARY | 2025-06-11 10:53 | XMS_ITS | Clinical Summary ---
Author Organization [facility] Address [address] [facility] [address] [place] [address] Care Team Providers Care Manager Agency Name Role Phone Britni Griffith MD Primary Care Provider + Allergies Active Allergy Reactions Criticality Noted Date Comments Cortisone 11/23/2017 Tolerates topical cream/inhalers Medications * This document contains information received from the source organization and may not represent a complete record from that organization. polyvinyl alcohol (Liquifilm Tears) 1.4 % ophthalmic solution one drop in each eye 3 times a day 0 Active FREESTYLE LITE test strip USE TO TEST BLOOD GLUCOSE TWICE DAILY 3 Active FreeStyle lancets USE 1 LANCET BY TO SKIN ROUTE EVERY DAY 3 Active thiamine (Vitamin B-1) 100 MG tablet TAKE 1/2 TABLET (50 MG) BY MOUTH ONCE A DAY 2 Active beta carotene (vitamin A) 3 MG (66763 UT) capsule Take 10,000 Units by mouth in the morning. Active cyclobenzaprine (Flexeril) 10 MG tabletIndication s:Lumbar paraspinal muscle spasm TOME NISH TABLETA TODOS LOS BARNHART AL ACOSTARSE 30 tablet 3 3 Active Galzin 25 MG capsule TAKE 1 CAPSULE (25 MG) ORALLY DAILY 3 Active omeprazole (PriLOSEC) [address] capsule Take 40 mg by mouth. 9 Active hydrocortisone (Anusol-HC) 2.5 % rectal creamIndications :Grade II hemorrhoids INSERT INTO THE RECTUM 2 TIMES DAILY. 30 g 3 4 Active betamethasone, augmented, (Diprolene) 0.05 % lotionIndication s:Psoriasiform dermatitis Apply topically Once per day. 30 mL 2 4 Active ergocalciferol (Vitamin D2) 1.25 MG (51091 UT) capsuleIndicatio ns:Vitamin D deficiency TAKE 1 CAPSULE BY MOUTH ONCE A WEEK 12 capsule 4 Active Linzess 145 MCG capsuleIndicatio ns:Vitamin D deficiency TOME 1 CAPSULA POR VIA ORAL BEFORE BREAKFAST.DO NOT CRUSH OR CHEW 30 capsule 11 4 Active dicyclomine (Bentyl) 10 MG capsuleIndicatio ns:Grade II hemorrhoids TAKE 1 CAPSULE BY MOUTH THREE TIMES A DAY 270 capsule 4 Active budesonide-formo terol (Symbicort) 160-4.5 MCG/ACT inhalerIndicatio ns:Moderate persistent asthma without complication INHALE 2 PUFFS BY MOUTH TWICE DAILY IN THE MORNING AND EVENING. 10.2 each 3 5 Active Combivent Respimat 20-100 MCG/ACT inhalerIndicatio ns:Moderate persistent asthma without complication INHALE 1 PUFF IN THE MORNING, AT NOON, IN THE EVENING, AND AT BEDTIME. 4 g 11 5 Active ketoconazole (NIZOral) 2 % shampooIndicatio ns:Psoriasiform dermatitis Apply topically 3 (three) times a week. 120 mL 3 5 Active Clobetasol Propionate 0.05 % shampooIndicatio ns:Psoriasiform dermatitis APPLY SHAMPOO DAILY 118 mL 1 5 Active Fluocinolone Acetonide Scalp ([place]-Smoothe/F S Scalp) 0.01 % oilIndications:P soriasiform dermatitis Use 2-3 times weekly at night and apply covers 118.28 mL 2 5 Active methotrexate 2.5 MG tabletIndication s:Psoriasiform dermatitis Take 6 tablets (15 mg total) by mouth 1 (one) time per week. Follow directions carefully, and ask to explain any part you do not understand. Take exactly as directed. 24 tablet 11 5 Active folic acid (Folvite) 1 MG tabletIndication s:Psoriasiform dermatitis Take 1 tablet (1 mg) by mouth Once per day. 30 tablet 11 5 026 Active gabapentin (Neurontin) 300 MG capsule TAKE 1 CAPSULE POR VIA ORAL AL ACOSTARSE 90 capsule 1 5 Active cetirizine (ZyrTEC) 10 MG tabletIndication s:Chronic rhinitis TAKE 1 TABLET BY MOUTH EVERY MORNING 90 tablet 1 5 Active ipratropium-albu terol (Duo-Neb) 0.5-2.5 mg/3 mL nebulizer solution INHALE 1 AMPULE BY NEBULIZER EVERY 6 HOURS 180 mL 5 Active meloxicam (Mobic) 15 MG tablet TAKE 1 TABLET BY MOUTH EVERY DAY 30 tablet 5 Active calcium citrate (Calcitrate) 950 (200 Ca) MG tablet See Instructions, TOME DOS TABLETAS POR VIA ORAL DOS VECES AL JOVANA, # 360 tablet, 0 Refills, Maintenance, 03/28/25 2:58:00 PM EDT, [id number], 160, cm, 03/04/25 15:12:00 EDT, Height, 114, kg, 07/05/24 13:12:00 EDT, Dry Weight 5 Active pyridoxine (Vitamin B-6) 100 MG tablet TOME NISH TABLETA POR V A ORAL TODOS LOS D 5 Active Spiriva Respimat 1.25 MCG/ACT inhaler Inhale 2 puffs Once per day. Active Zepbound 2.5 MG/0.5ML solution auto-injector 5 Active topiramate 50 MG tablet TAKE 1 TABLET BY MOUTH IN THE MORNING AND 2 TABLETS WITH DINNER 5 Active buPROPion SR (Wellbutrin SR) 150 MG 12 hr tablet TAKE 1 TABLET (150 MG) BY MOUTH 2 TIMES DAILY. DO NOT CRUSH, CHEW, OR SPLIT. 5 Active buPROPion SR (Wellbutrin SR) 200 MG 12 hr tablet Take 1 tablet (200 mg) by mouth 2 times daily. Do not crush, chew, or split. 180 tablet 2 5 025 Discontin ued(Thera py completed ) Active Problems Problem Noted Date Diagnosed Date [...] I gave her information about [facility] in [place] to call for appointment, a referral was [...] EDT): Probably Fibromyalgia, will follow up with Supervisor Reclamation. Will increase Topamax to 100 mg QHS [...] simple cysts, seen on renal US 03/2024 ([facility]), no need to fu. Chronic gastritis without bleeding 11/29/2023 Overview (11/29/2023): Had EGD on 2019 ([facility]). Assessment & Plan (11/29/2023 2:41 PM EST): Had EGD on 2019 ([facility]). She maybe symptomatic. Use sucralfate tid ac [...] daily, use albuterol as needed Follow-up with men's leather dress belt maker Assessment & Plan (11/29/2023 2:33 PM EST): [...] r/o MDD pt has an appointent with [facility] counselor. FU in 6 weeks with me [...] of a mild psoriasis follow up with area counselor. Continue Methotrexate mg per week and follow up with area counselor. Essential hypertension 11/17/2022 Assessment & Plan (04/18/2025 [...] 11/17/2022 Overview (08/11/2023): EGD on 01/18/19 At [facility]: esophagitis + gastritis + duodenitis Assessment & Plan (02/14/2023 11:23 AM EDT): Most likely exacerbated by recent gastric sleeve Recommended smaller in fraction meals go back to liquid diet advance PO diet every other week use pantoprazole x2 days and sucralfate PRN encouraged to continue weight reduction Hyperparathyroidism 11/17/2022 Assessment & Plan (04/18/2025 2:15 PM EDT): Seen by appliance parts counter clerk, he is resistant to vitamin D supplementation. Obtain POC from [facility] endocrinology office Assessment & Plan (07/13/2024 [...] WRITTEN ON 08/11/2023 2:34 PM BY BRITNI GRIFFITH MD Cont Colace and miralax Add linzess [...] 11/23/2017 Overview (08/11/2023): EGD on 01/18/19 at [facility]= History of cholecystectomy 11/23/2017 Nonalcoholic [...] after approximately 35 pounds. Continue Zepbound per appliance parts counter clerk She has declined to continue follow-up with dietitian for weight management program, will remind her regarding swallow function meals and she could we will continue to replace one of the meals for protein shakes. Follow-up in 6-month Assessment & Plan (04/18/2025 9:01 AM EDT): >>ASSESSMENT AND PLAN FOR MORBID OBESITY (CMS/HCC) WRITTEN ON 11/17/2022 9:59 PM BY BRITNI GRIFFITH MD Has lost 30 lb, fu with weight management program Bariatric surgery on 11/30 Assessment & Plan (04/18/2025 9:01 AM EDT): >>ASSESSMENT AND PLAN FOR MORBID OBESITY ([facility]) WRITTEN ON 07/13/2024 2:19 PM BY HIEU [...] not want to be referred to a blind hanger at this time. DC Topamax and start [...] wellbutrin. -Advised to make an appointment with [facility] Weight management clinic. Assessment & Plan (06/20/2023 11:10 AM EDT): She's sp bariatric surgery on nov 2022, lost total of 100 lb since Discussed re weight reduction options including exercise, life style modifications, diet, referral to search marketing specialist. Discussed re lower calorie intake, increase [...] Encounters Date Type Department Care Team Description 06/10/2025 Travel 06/07/2025 Refill [facility] [address] [place] [address] Luanne Waller MD Psoriasiform dermatitis 05/22/2025 Orders Only GENERIC EXTERNAL DATA DEPARTMENT Provider, Generic External Data 05/15/2025 10:00 AM EDT Office Visit [facility] [address] [place] [address] Evan, Chloe, OD Diabetes type 2, 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) (Primary Dx); Retinal hole of both eyes; Lattice degeneration of both retinas; White without pressure of peripheral retina of right eye; Dry eyes; Presbyopia 05/15/2025 Travel 05/15/2025 Refill [facility] [address] [place] [address] Britni Griffith MD Psoriasiform dermatitis 05/09/2025 Telephone [facility] [address] [place] [address] Britni Griffith MD July05/09/2025 Refill [facility] [address] [place] [address] Britni Griffith MD 04/19/2025 Telephone [facility] [address] [place] [address] Britni Griffith MD Durable Medical Equipment 04/18/2025 10:00 AM EDT Office Visit [facility] [address] [place] [address] Cecy Dyer MD Myofascial pain syndrome (Primary Dx) 04/18/2025 9:00 AM EDT Office Visit [facility] [address] [place] [address] Britni Griffith MD Essential hypertension (Primary Dx); Type 2 [...] counseling; Exercise counseling 04/18/2025 Travel 04/17/2025 Telephone [facility] [address] [place] [phone] Britni Griffith MD Chart prep 03/28/2025 Refill [facility] [address] [place] [address] [phone] Britni Griffith MD Chronic rhinitis 03/20/2025 Refill [facility] [address] [place] [phone] Britni Griffith MD from Last 3 Months Immunizations Immunization [...] Care Team (Late st Contact Info) Description 06/17/2025 11:00 AM EDT Office Visit [facility] [address] [place] [phone] Ana M Grimm MD [address] [place] [phone] 07/26/2025 10:00 AM EDT Office Visit [facility] [address] [place] [phone] Luanne Waller MD [address] [place] [address] 07/30/2025 9:45 AM EDT Office Visit [facility] [address] [place] [address] Britni Griffith MD [address] [place] [address] Health Maintenance Due Date Last Done Comments CT Colonography 1978 FIT DNA/Cologuard 1978 FIT 1978 FOBT 1980 Sigmoidoscopy 1978 Diabetes: Foot Exam 02/14/1988 [...] COVID-19 Vaccine ( season) 2024 09/22/2021, 08/27/2021 Influenza Vaccine (#1) 2025 Mammogram 08/03/2025 08/03/2024, 07/09, 01/27/2022, Additional history exists Diabetes: Hemoglobin A1C 10/18/2025 025, 10/09/2024, 07/13/2024, Additional history exists Depression Screening 04/18/2026 04/18/2025, 10/09/20 24 Disability Screening 04/18/2026 04/18/2025 Family Planning (PISQ) 04/18/2026 04/18/2025 SDOH Screening 04/18/2026 04/18/2025 Diabetes: Urine Protein Screening 05/22/2026 05/22/2025, 11/17/2023, 05/19/2023 Tobacco Screening 05/30/2026 05/30/2025 Eye Exam 05/15/2027 05/15/2025, 07/0 07/2025, 05/15/2025, Additional history exists DTaP/Tdap/Td Vaccines (3 - Td or Tdap) 11/23/2027 11/23/2017, 11/04/1996 Zoster Vaccines (1 of 2) 02/14/2028 Colonoscopy 07/05/2034 07/05/2024 Colorectal Cancer Screening 07/05/2034 RSV Patients and Patients Aged 60 years or older (1 - 1-dose 75+ series) 2053 HIV Screening Completed 05/22/2025 Hepatitis C Screening Completed 05/22/2025, 024 HIB Vaccines Aged Out No longer eligi [...] Procedure Name Priority Date/Time Associated Diagnosis Comments KAPPA/LAMBDA LIGHT CHAINS FREE WITH RATIO, SERUM Routine 05/22/2025 10:46 AM EDT BRITNI SCREEN, IFA, W/REFL TITER AND PATTERN Routine 05/22/2025 10:46 AM EDT HIV 1/2 ANTIGEN/ANTIBODY, FOURTH GENERATION W/RFL Routine 05/22/2025 10:46 AM EDT HEPATITIS B, C PROFILE Routine 10:46 AM EDT URINE PROTEIN, TOTAL, RANDOM (W/O CREATININE) Routine 05/22/2025 10:46 AM EDT ALBUMIN, RANDOM URINE W/CREATININE Routine 05/22/2025 10:46 AM EDT VITAMIN D,25-OH,TOTAL,IA Routine 05/22/2025 10:46 AM EDT PHOSPHATE ( PHOSPHORUS) Routine 05/22/2025 10:46 AM EDT URIC ACID Routine 05/22/2025 10:46 AM EDT BASIC METABOLIC PANEL Routine 05/22/2025 10:46 AM EDT PTH, INTACT WITHOUT CALCIUM Routine 05/22/2025 10:46 AM EDT URINALYSIS WITH REFLEX TO MICROSCOPIC Routine 05/22/2025 10:46 AM EDT POCT GLYCATED HEMOGLOBIN, TOTAL Routine 04/18/2025 9:13 AM EDT Type 2 diabetes, diet controlled (CMS/HCC) POCT GLUCOSE Routine 04/18/2025 9:09 AM EDT Type 2 diabetes, diet controlled (CMS/HCC) BI MAMMOGRAM SCREENING TOMOSYNTHESIS BILATERAL Routine 08/03/2024 9:30 AM EDT HM COLONOSCOPY Routine 07/05/2024 LIPID PANEL, STANDARD Routine 05/19/2023 11:40 AM EDT Type 2 diabetes, diet controlled (CMS/HCC) from Last 3 Months or Most Recently Relevant to Health Maintenance Results * Hepatitis B, C Profile (05/22/2025 10:46 AM EDT) ~Hepatitis B Surface Antibody NONREACTIVE Nonreactive [facility] Comment:Nonreactive: < 8.00 mIU/mL Hepatitis B Core Antibody Nonreactive Nonreactive [facility] Hepatitis C Antibody Nonreactive Nonreactive [facility] Comment:Antibodies to HCV no t detected; does not exclude early acuteHCV infection. Hepatitis B Surface Ag Negative Negative [facility] 05/22/2025 10:4 6 AM EDT 05/22/2025 1:57 PM EDT us Generic External Data Provider LAB BLOOD ORDERAB LES Final Result Performing Organization Address [facility] Co de Phone Number [facility] [address] [place] [address] [phone] * Vitamin D, 25-Hydroxy, Total, Immunoassay (05/22/2025 10:46 AM EDT) Vitamin D 25-OH Total 40.3 >30 ng/mL [facility] Comment: Health Based Reference Values*< 20 ng/mL [id number] ng/mL Insufficient> 30 ng/mL Sufficient*Rebecca DURAN. N Engl J Med. 2007;357:266-280There is no well-established upper level of normal vitamin Dlevels. Some laboratories use 50 ng/mL as an upper limit ofnormal. However, toxicity is patient-dependent and may occurat any level. Careful correlation with the patient'spresentation is necessary and, if there is concern forvitamin D toxicity, treatment should be consideredirrespective of the serum level.Care must be taken in interpreting Vitamin D results fromdifferent laboratories and methodologies. Published datademonstrated that results from patients undergoinghemodialysis may show a negative bias when tested withvarious automated 25-OH vitamin D assays when compared toLC-MS/MS.When testing samples from patients whose predominant form ofVitamin D is Vitamin D2, such as patients receiving VitaminD2 supplementation, results that are subtherapeutic shouldbe confirmed with another method such as LC-MS/MS. 05/22/2025 10:4 6 AM EDT 05/22/2025 1:57 PM EDT Generic External Data Provider LAB BLOOD ORDERAB LES Final Result Performing Organization Address [facility]/ZIP Co de Phone Number [facility] [address] [place] [address] [phone] * Urinalysis with Reflex to Microscopic (05/22/2025 10:46 AM EDT) Color Urine Yellow [facility] Appearance Urine Cloudy [facility] PH 6.0 5.0 - 9.0 [facility] Glucose Urine UA Negative Negative mg/dL [facility] Urine Blood Negative Negative [facility] Specific [facility] - Urine 1.025 1.005 - 1.025 [facility] Urine Protein Negative Neg-Trace mg/dL [facility] Urine Ketones Trace Negative mg/dL [facility] Nitrite Urine Negative Negative [facility] Leukocyte Esterase Urine Negative Negative [facility] 05/22/2025 10:4 6 AM EDT 05/22/2025 1:41 PM EDT us Generic External Data Provider LAB URINE ORDERAB LES Final Result Performing Organization Address [facility] de Phone Number [facility] [address] [place] [phone] * Albumin, Random Urine W/Creatinine (05/22/2025 10:46 AM EDT) Creatinine, Urine 278.70 mg/dL [facility] Microalbumin Urine 15.0 mg/L [facility] Microalbum Creatinine Ratio Ur 5.3 <30 ug/mg cr [facility] Comment:Albumin/Creatinine R atio Reference Ranges: Normal: < 30 ug/mg creatinine Microalbuminuria: 30 - 300 ug/mg creatinineClinical Albuminuria: > 300 ug/mg creatinine 05/22/2025 10:4 6 AM EDT 05/22/2025 1:41 PM EDT us Generic External Data Provider LAB URINE ORDERAB LES Final Result Performing Organization Address [facility] Co de Phone Number [facility] [address] [place] [phone] * [place]/Lambda Light Chains, Free with Ratio (05/22/2025 10:46 AM EDT) [place] Light Chain, Free, Serum 400 176 - 603 mg/dL [facility] Lambda Light Chain, Free, Serum 198 91 - 240 mg/dL [facility] [place]/Lambda Light Chains Free With Ratio, Serum 2.02 1.29 - 2.55 [facility] Comment:This assay provides a measurement of the total kappa and thetotal lambda light chains, ie., the amount of free(unattached) light chain in circulation and the amount oflight chain linked to heavy chain in intact immunoglobulinmolecules. Assays for serum free light chain only, kappa andlambda with ratio, may be more useful in evaluating andmanaging light chain gammopathies including those associatedwith myeloma, lymphoproliferative disorders, andamyloidosis.THIS TEST WAS PERFORMED AT:[employer] [id number] [place] [address]RFTXSALYSSA BERRY MD,PHD,RUSLAN 05/22/2025 10:4 6 AM EDT 05/22/2025 1:57 PM EDT Generic External Data Provider LAB BLOOD ORDERAB LES Final Result Performing Organization Address [facility]/ZIP Co de Phone Number [facility] [address] [place] [phone] * (ABNORMAL) Urine Protein, Total, Random without Creatinine (05/22/2025 10:46 AM EDT) Protein, Total, Random Urine 13(H) <12 mg/dL [facility] 05/22/2025 10:4 6 AM EDT 05/22/2025 1:41 PM EDT Generic External Data Provider LAB URINE ORDERAB LES Final Result Performing Organization Address [facility]/ZIP Co de Phone Number [facility] [address] [place] [phone] * HIV-1/2 Antigen and Antibodies, Fourth Generation, with Reflexes (05/22/2025 10:46 AM EDT) HIV AB/AG Nonreactive Nonreactive [facility] Comment:HIV-1 p24 Ag and/or HIV-1/HIV-2 Ab not detected.A test result that is nonreactive does not exclude thepossibility of exposure to or infection with HIV-1 and/orHIV-2. Nonreactive results in this assay for individualswith prior exposure to HIV-1 and/or HIV-2 may be due toantigen and antibody levels that are below the limit ofdetection of this assay.The [employer] HIV Ag/Ab Combo assay result andsupplemental assay results should be interpreted inconjunction with the patient's clinical presentation,history and other laboratory results. If the results areinconsistent with clinical evidence, additional testing issuggested to confirm the result. 05/22/2025 10:4 6 AM EDT 05/22/2025 1:57 PM EDT us Generic External Data Provider LAB BLOOD ORDERAB LES Final Result [facility] [address] [place] [phone] * BRITNI Screen,IFA, with Reflex to Titer and Pattern (05/22/2025 10:46 AM EDT) Anti Nuclear Antibody Screen NEGATIVE NEGATIVE [facility] Comment:BRITNI IFA is a first l ine screen for detecting thepresence of up to approximately 150 autoantibodies invarious autoimmune diseases. A negative BRITNI IFA resultsuggests an BRITNI-associated autoimmune disease is notpresent at this time, but is not definitive. If thereis high clinical suspicion for Sjogren's syndrome,testing for anti-SS-A/Ro antibody should be considered.Anti-Ramya-1 antibody should be considered for clinicallysuspected inflammatory myopathies.AC-0: NegativeInternational Consensus on BRITNI Patterns(https://doi.org/10.1515/iexw-9655-3811)For additional information, please refer tohttp://education.[employer]/faq/ELP231(This link is being provided for informational/educational purposes only.)THIS TEST WAS PERFORMED AT:[id number] [place] [id number] KIMBROUGH MD BRITNI Titer TNP [facility] BRITNI Pattern TNP [facility] BRITNI TITER 2 (REF LAB) TNP [facility] BRITNI Pattern 2 TNP [facility] BRITNI TITER 3 TNP [facility] BRITNI PATTERN 3 [facility] 05/22/2025 10:4 6 AM EDT 05/22/2025 1:57 PM EDT us Generic External Data Provider LAB BLOOD ORDERAB LES Final Result Performing Organization Address [facility] Co de Phone Number [facility] [address] [place] [phone] * Uric acid (05/22/2025 10:46 AM EDT) Uric Acid 5.6 2.4 - 5.7 mg/dL [facility] 05/22/2025 10:4 6 AM EDT 05/22/2025 1:57 PM EDT us Generic External Data Provider LAB BLOOD ORDERAB LES Final Result Performing Organization Address [facility] Co de Phone Number [facility] [address] [place] [phone] * Phosphate (As Phosphorus) (05/22/2025 10:46 AM EDT) Phosphorus 2.8 2.7 - 4.5 mg/dL [facility] 05/22/2025 10:4 6 AM EDT 05/22/2025 1:57 PM EDT us Generic External Data Provider LAB BLOOD ORDERAB LES Final Result Performing Organization Address [facility] Co de Phone Number [facility] [address] [place] [phone] * (ABNORMAL) PTH, Intact Without Calcium (05/22/2025 10:46 AM EDT) Parathyroid Hormone, Intact 102.0(H) 8.7 - 77.1 pg/mL [facility] 05/22/2025 10:4 6 AM EDT 05/22/2025 1:53 PM EDT Generic External Data Provider LAB BLOOD ORDERAB LES Final Result Performing Organization Address [facility]/ZIP Co de Phone Number [facility] [address] [place] [phone] * (ABNORMAL) Basic Metabolic Panel (05/22/2025 10:46 AM EDT) Sodium 140 135 - 145 mmol/L [facility] Potassium 3.5 3.3 - 5.1 mmol/L [facility] Chloride 105 96 - 108 mmol/L [facility] Carbon Dioxide 28 22 - 29 mmol/L [facility] Anion Gap 11(L) 12 - 20 [facility] Urea Nitrogen (BUN) 15 9 - 16 mg/dL [facility] Creatinine, Serum 0.66 0.5 - 1.4 mg/dL [facility] Estimated Glomerular Filt Rate >60 [facility] Comment:Chronic Kidney Disea se: Estimated GFR < 60 mL/min/1.20s7Kcycwy Kidney Disease: Estimated GFR < 15 mL/min/1.73m2 Glucose 88 60 - 115 mg/dL [facility] Calcium 8.6 8.4 - 10.2 mg/dL [facility] 05/22/2025 10:4 6 AM EDT 05/22/2025 1:57 PM EDT Generic External Data Provider LAB BLOOD ORDERAB LES Final Result Performing Organization Address [facility]/ZIP Co de Phone Number [facility] [address] [place] [phone] * POCT HGB A1C (04/18/2025 9:13 AM EDT) Hemoglobin A1C 5.1 4.0 - 6.0 % QC Media Lot # [id number] Lot# Expiration Date Blood 04/18/2025 9:13 AM EDT Britni Griffith MD POINT OF CARE TEST ENTER /EDIT ORDERABLES Final Result * POCT Glucose (04/18/2025 9:09 AM EDT) Glucose Blood, POC 101 60 - 200 mg/dL QC Media Lot # [id number] Lot# Expiration Date 025 Blood Capillary blood specimen / Unknown 04/18/2025 9:09 AM EDT Britni Griffith MD POINT OF CARE TEST ENTER /EDIT ORDERABLES Final Result * BI Mammogram Screening Tomosynthesis Bilateral (08/03/2024 9:30 AM EDT) Anatomical Region Laterality Modality Breast Bilateral Mammography 08/03/2024 9:30 AM EDT Narrative 08/15/2024 9:26 AM EDT [facility] [address] [place], [place] [address] Mammography Report Signed Patient: Mikaela Espinal MR#: [id number] : 1980 Acct:[id number] Age/Sex: 44 / F ADM Date: 08/03/24 Loc: HO.MAMMO Attending Dr: Britni Griffith MD Ordering Physician: Britni Griffith MD Results: 1Ne gative Date of Service: 08/03/24 Follow Up: 1 Year From Orig ina Mammogram Procedure(s): MM tomosynthesis screening BI Accession Number(s): [id number] cc: Britni Griffith MD EXAMINATION: MM SCREENING DIGITAL BREAST TOMOSYNTHESIS, [...] in OV> 08/15/24923 DD/ 9 TD/TT: 08/03/24956 Fleet Service Clerk: Procedure Note Donotuseinterpreter, Image - [facility]15/[facility] [address] [place] [address] Mammography Report Signed Patient: Mikaela Espinal LMR#: [id number] : 1980Acct:[id number] Age/Sex: 44 / FADM Date: 08/03/24 Loc: HO.MAMMO Attending Dr: Britni Griffith MD Ordering Physician: Britni Griffith MDResults: 1Ne gative Date of Service: 08/03/24Follow Up: 1 Year From Orig inal Mammogram Procedure(s): MM tomosynthesis screening BI Accession Number(s): [id number] cc: Britni Griffith MD EXAMINATION: MM SCREENING DIGITAL BREAST TOMOSYNTHESIS, [...] in OV> 08/15/24923 DD/ 9 TD/TT: 08/03/24956 Fleet Service Clerk: Britni Griffith MD IMG BI PROCEDURES Final Result * Hm Colonoscopy (07/05/2024) Colonoscopy Normal Normal Historical Provider HEALTH MAINTENANCE Final Result * Lipid Panel, Standard (05/19/2023 11:40 AM EDT) Triglycerides 54 mg/dL [facility] Comment:Desirable Triglyceri de: less than 150 mg/dLBorderline High Triglyceride 150-199 mg/dLHigh Triglyceride: 200-499 mg/dLVery High Triglyceride: greater than or equal to 5OO mg/dL Cholesterol 153 mg/dL [facility] Comment:Desirable Cholestero l: less than 200 mg/dLBorderline High Cholesterol: 200-239 mg/dLHigh Cholesterol: greater than 239 mg/dL LDL Cholesterol Calculated 76 mg/dl [facility] Comment:Desirable LDL: less than 100 mg/dLNear Optimal/Above Optimal LDL: 110- 129 mg/dLBorderline High LDL: 130-159 mg/dLHigh LDL: 160-189 mg/dLVery High LDL: greater than or equal to 190 mg/dL HDL Cholesterol 67 mg/dL [facility] Comment:Desirable HDL: great er than 40 mg/dL Note: This HDL assay may give artificially low results in patients with liver disease. 05/19/2023 11:4 0 AM EDT 05/19/2023 11:40 AM EDT [facility] External Provider LAB BLO OD ORDERABLES Final Result [facility] [address] [place] [address] [phone] from Last 3 Months or Most Recently Relevant to Health Maintenance [place] [address] [place] [address] STANDARD Care Teams Manager Agency Relationship Specialty Start Date End Date Britni Griffith MD [address] [place] [phone] PCP - General Family Medicine 8/13/18
== END 2025-06-11 11:01 | disposition home or self-care (01) ==
LOC: HO.HKAS 10:18
PROVIDERS: PCP Internal Medicine; Visit Provider Internal Medicine Critical Care Medicine
DX: N20.1 Calculus of ureter (principal); Z87.442 Personal history of urinary calculi
CPT/HCPCS: 99214

== ENCOUNTER → 2025-06-11 10:17 | Outpatient (BNVA) | payer MEDICAID, SELFPAY | PROVIDERS: PCP Internal Medicine; Visit Provider Internal Medicine Critical Care Medicine | DX: N20.1 Calculus of ureter (principal); Z87.442 Personal history of urinary calculi | CPT/HCPCS: 99212 ==

== ENCOUNTER 2025-06-13 10:15 | Outpatient (RCR) | payer MEDICAID, SELFPAY ==
--- NOTE | 2025-05-23 10:56 | MHC.OT.EP ---
[address] [phone] Occupational Therapy Plan of Care Patient Name: Mikaela Lam Date of Evaluation: 05/23/25 Diagnosis: Tendonitis of bilateral hands Primary OA of bilateral hands Pain Location: Pain in bilateral hands/forearms 7-8/10 Pain Score: 8 Pain Scale Used: Numeric (0 - 10) Aggravating Factors: Heavy lifting, forceful grasp Alleviating Factors: Medication Assessment: Pt is a 45 y/o female referred to OT for bilateral hand pain and weakness. Pt reports >1 year history of worsening all over body pain , worse in her hands with right being more significant than left. She reports the pain sometimes originates in her shoulder and shoots down to her volar forearm. She experiences numbness in the right hand, primarily in the volar wrist, thumb and fingertips. X-ray findings showed moderate degenerative changes first carpometacarpal joint. Pt has history of fibromyalgia which causes inconsistent pain throughout her body. Markus symptoms are consistent with carpal tunnel syndrome and we discussed trialing a wrist cock-up splint for night time use to help with pain and numbess. Quick DASH assessment 65.9% indicating moderate/severe difficulty performing functional activities. Pt would benefit from skilled OT therapy to address noted barriers and assist in return to PLOF. Frequency and Duration: The patient will be seen 2x/wk for 4 weeks Short Term Goals: IND with splint wear Decrease bilateral wrist/hand pain <5/10 IND with thermal modalities for pain mgt [place] Goals: Pain free with ADL's/IADL's Increase bilateral gross grasp by 10# each IND with HEP Increased functional hand use as evidenced by Quick DASH score <40% Treatment Plan: Therapeutic Exercise Therapeutic Activity Home Exercise Program Patient Education Ultrasound MHP Soft Tissue Mobilization Electronically Signed By: Liss Herman MS OTR/L Please Sign and return to therapist. Thank you once again for your referral.
== END 2025-08-14 14:17 | disposition home or self-care (01) ==
LOC: HO.OTS 10:15
PROVIDERS: PCP Internal Medicine; Visit Provider Internal Medicine
DX: M77.8 Other enthesopathies, not elsewhere classified (principal); M19.041 Primary osteoarthritis, right hand; M19.042 Primary osteoarthritis, left hand
CPT/HCPCS: 29125; 97035; 97110; 97165

== ENCOUNTER 2025-08-09 09:46 | Outpatient (REF) | payer MEDICAID, SELFPAY ==
--- OUTSIDE RECORDS SUMMARY | 2025-08-09 10:22 | XMS_ITS | Encounter Summary ---
Author Organization [employer] Address [address] [facility] [address] [place] [address] Care Team Providers Care Senior Investment Analyst Name Role Phone Moni Green MD Primary Care Provider + Reason for Visit * Reason Onset Date Comments Medication Question 08/08/2025 Encounter Details Date Type Department Care Team ([facility] Contact Info) Description 08/08/2025 Telephone [facility] [address] [place], [place] [phone] Moni Green MD [address] [place] [address] Medication Question Social History Tobacco Use Types Packs/Day Years Used Date Smoking Tobacco: Never Passive Smoke Exposure: Never Smokeless Tobacco: Never Alcohol Use Standard Drinks/Week Comments Never 0 [...] want or need it 04/07 Comments No Sex and Gender Information Value Date Recorded Sex Assigned at Female 09/06/2022 10:32 AM EDT Legal Sex Female 10:32 AM EDT Gender Identity Female 09/06/2022 10:32 AM EDT Sexual Orientation Straight 09/06/2022 10 :32 AM EDT documented as of this encounter Miscellaneous Notes * Telephone Encounter - Wan Perez - 08/08/2025 3:45 PM EDT Tc from [facility] with [facility] calling to inform that the methotrexate has not been discontinued. If any questions please contact Chani at [phone]. documented in this encounter Plan of Treatment Not on file documented as of this encounter Visit Diagnoses Not on filedocumented in this encounter Additional Health Concerns Assessment Noted Time PHQ-9 Depression Total Score: 8 10/09/20 24 11:43 AM EST documented as of this encounter Care Teams Senior Investment Analyst Relationship Specialty Start Date End Date Moni Green MD [address] [place] [id number] PCP - General Family Medicine 06/19/18 documented as of this encounter
--- OUTSIDE RECORDS SUMMARY | 2025-08-09 10:22 | XMS_ITS | Encounter Summary ---
Author Organization [employer] Address [address] [facility] [address] [place] [address] Care Team Providers Care Nurse Staff Industrial Name Role Phone Moni Green MD Primary Care Provider + Reason for Visit * Reason Comments Med Change Request Encounter Details Date Type Department Care Team ([facility] Contact Info) Description 08/11/2023 Refill [facility] [address] [place], [place] [phone] Moni Green MD [address] [place] [address] Grade II hemorrhoids Social History Tobacco Use Types Packs/Day Years Used Date Smoking Tobacco: Never Passive Smoke Exposure: Never Smokeless Tobacco: Never Alcohol Use Standard Drinks/Week Comments Never 0 (1 standard drink = 0.6 oz pur e alcohol) Depression Answer Date Recorded Patient Health Questionnaire-9 Score 0 02/14/2023 Housing Stability Answer Date Recorded What is your housing situation today? I have jennifer azevedo 08/15/[address] you li ve. Do you have problems with any of the following? None of the above 08/15/2023 Food Insecurity Answer Date Recorded Within the past 12 months, y ou worried that your food would run out before you got money to buy more: Never True 08/15/2023 Within the past 12 months,th e food you bought just didn't last and you didn't have enough money to get more: Never True 07/2023 Transportation Answer Date Recorded In the past 12 months, has l ack of transportation kept you from medical appts, meetings, work or from getting things needed for daily living? No 08/15/2023 Utilities Answer Date Recorded In the past 12 months, has t he electric, gas, oil or water company threatened to shut off services in your home? No 08/15/2023 Depression Answer Date Recorded Patient Health Questionnaire-2 Score 0 02/14/2023 Comments Unknown Sex and Gender Information Value Date Recorded Sex Assigned at Female 09/06/2022 10:32 AM EDT Legal Sex Female 10:32 AM EDT Gender Identity Female 09/06/2022 10:32 AM EDT Sexual Orientation Straight 09/06/2022 10 :32 AM EDT documented as of this encounter Plan of Treatment Not on file documented as of this encounter Visit Diagnoses Diagnosis Grade II hemorrhoids documented in this encounter Additional Health Concerns Assessment Noted Time PHQ-9 Depression Total Score: 0 02/15/20 23 10:46 AM EDT documented as of this encounter Care Teams Nurse Staff Industrial Relationship Specialty Start Date End Date Moni Green MD [address] [place] [phone] PCP - General Family Medicine 06/19/18 documented as of this encounter
--- OUTSIDE RECORDS SUMMARY | 2025-08-09 10:22 | XMS_ITS | Encounter Summary ---
Author Organization [employer] Address [address] [facility] [address] [place] [address] Care Team Providers Care Radiocommunications Technician Name Role Phone Moni Green MD Primary Care Provider + Reason for Visit * Reason Onset Date Comments Appointment Request 07/26/2025 Encounter Details Date Type Department Care Team ([facility] st Contact Info) Description 07/26/2025 Telephone [facility] [address] [place], [place] [phone] Moni Green MD [address] [place] [address] Appointment Request Social History Tobacco Use Types Packs/Day Years [...] encounter Miscellaneous Notes * Telephone Encounter - Jennifer Clifford - 07/26/2025 9:17 AM EDT TC from pt requesting to be rescheduled for DERM visit . Patient Partner informed patient that DERM appointments are very limited and may not have availability for another month Contact pt at [phone] Need contract officer documented in this encounter Plan of Treatment Not on file documented as of this encounter Visit Diagnoses Not on filedocumented in this encounter Additional Health Concerns Assessment Noted Time PHQ-9 Depression Total Score: 8 10/09/20 24 11:43 AM EST documented as of this encounter Care Teams Radiocommunications Technician Relationship Specialty Start Date End Date Moni Green MD [address] [place] [phone] PCP - General Family Medicine 06/19/18 documented as of this encounter
--- OUTSIDE RECORDS SUMMARY | 2025-08-09 10:22 | XMS_ITS | Clinical Summary ---
Author Organization [employer] Address [address] [place] [address] Care Team Providers Care Sales Engineer [employer] Name Role Phone Britni Griffith MD Primary [...] SKIN ROUTE EVERY DAY 11/15/19 23 Active beta carotene (vitamin A) 3 MG (52284 UT) capsule Take 10,000 Units by mouth in the morning. Active Galzin 25 MG capsule TAKE 1 CAPSULE (25 MG) ORALLY DAILY 06/06/20 23 Active omeprazole (PriLOSEC) [address] capsule Take 40 mg by mouth. 01/26/20 19 Active ergocalciferol (Vitamin D2) 1.25 MG (38433 UT) capsuleIndicati ons:Vitamin D deficiency TAKE 1 CAPSULE BY MOUTH ONCE A WEEK 12 capsule 07/04/20 24 Active dicyclomine (Bentyl) 10 MG capsuleIndicati ons:Grade II hemorrhoids TAKE 1 CAPSULE BY MOUTH THREE TIMES A DAY 270 capsule 11/05/20 24 Active budesonide-form oterol (Symbicort) 160-4.5 MCG/ACT inhalerIndicati ons:Moderate persistent asthma without complication INHALE 2 PUFFS BY MOUTH TWICE DAILY IN THE MORNING AND EVENING. 10.2 each 3 01/19/20 25 Active ketoconazole (NIZOral) 2 % shampooIndicati ons:Psoriasifor m dermatitis Apply topically 3 (three) times a week. 120 mL 3 02/09/20 25 Active Clobetasol Propionate 0.05 % shampooIndicati ons:Psoriasifor m dermatitis APPLY SHAMPOO DAILY 118 mL 1 02/09/20 25 Active folic acid (Folvite) 1 MG tabletIndicatio ns:Psoriasiform dermatitis Take 1 tablet (1 mg) by mouth Once per day. 30 tablet 11 02/09/20 25 026 Active gabapentin (Neurontin) 300 MG capsule TAKE 1 CAPSULE POR VIA ORAL AL ACOSTARSE 90 capsule 1 02/21/20 25 Active cetirizine (ZyrTEC) 10 MG tabletIndicatio ns:Chronic rhinitis TAKE 1 TABLET BY MOUTH EVERY MORNING 90 tablet 1 03/28/20 25 Active meloxicam (Mobic) 15 MG tablet TAKE 1 TABLET BY MOUTH EVERY DAY 30 tablet 05/09/20 25 Active calcium citrate (Calcitrate) 950 (200 Ca) MG tablet See Instructions, TOME DOS TABLETAS POR VIA ORAL DOS VECES AL JOVANA, # 360 tablet, 0 Refills, Maintenance, 03/28/25 2:58:00 PM EDT, [id number], 160, cm, 03/04/25 15:12:00 EDT, Height, 114, kg, 07/05/24 13:12:00 EDT, Dry Weight 03/28/20 25 Active pyridoxine (Vitamin B-6) 100 MG tablet TOME NISH TABLETA POR V A ORAL TODOS LOS D 02/20/20 25 Active Spiriva Respimat 1.25 MCG/ACT inhaler Inhale 2 puffs Once per day. Active topiramate 50 MG tablet TAKE 1 TABLET BY MOUTH IN THE MORNING AND 2 TABLETS WITH DINNER 04/20/20 25 Active Fluocinolone Acetonide Scalp 0.01 % oilIndications: Psoriasiform dermatitis USE 2-3 TIMES WEEKLY AT NIGHT AND APPLY COVERS 118.28 mL 3 06/14/20 25 Active Zepbound 5 MG/0.5ML solution auto-injector 05/24/20 25 Active buPROPion SR (Wellbutrin SR) 150 MG 12 hr tablet TAKE 1 TABLET (150 MG) BY MOUTH 2 TIMES DAILY. DO NOT CRUSH, CHEW, OR SPLIT. 180 tablet 2 07/15/20 25 Active betamethasone, augmented, (Diprolene) 0.05 % lotionIndicatio ns:Psoriasiform dermatitis Apply topically Once per day. 30 mL 2 07/30/20 25 Active hydrocortisone (Anusol-HC) 2.5 % rectal cream Insert into the rectum 2 times daily. 28 g 3 07/30/20 25 Active ipratropium-alb uterol (Duo-Neb) 0.5-2.5 mg/3 mL nebulizer solution INHALE 1 AMPULE BY NEBULIZER EVERY 6 HOURS 180 mL 07/31/20 25 Active cyclobenzaprine (Flexeril) 10 MG tabletIndicatio ns:Lumbar paraspinal muscle spasm Take 1 tablet (10 mg) by mouth if needed at bedtime for muscle spasms. TOME NISH TABLETA TODOS LOS BARNHART AL ACOSTARSE 30 tablet 3 08/06/20 25 Active linaCLOtide (Linzess) 145 MCG capsuleIndicati ons:Vitamin D deficiency Take 1 capsule (145 mcg) by mouth before breakfast. Do not crush or chew. 30 capsule 11 08/06/20 25 Active cyclobenzaprine (Flexeril) 10 MG tabletIndicatio ns:Lumbar paraspinal muscle spasm TOME NISH TABLETA TODOS LOS BARNHART AL ACOSTARSE 30 tablet 3 03/22/20 23 025 Discontinued(R eorder (will not trigger notification to Pharmacy)) betamethasone, augmented, (Diprolene) 0.05 % lotionIndicatio ns:Psoriasiform dermatitis Apply topically Once per day. 30 mL 2 04/20/20 24 025 Discontinued(R eorder (will not trigger notification to Pharmacy)) Linzess 145 MCG capsuleIndicati ons:Vitamin D deficiency TOME 1 CAPSULA POR VIA ORAL BEFORE BREAKFAST.DO NOT CRUSH OR CHEW 30 capsule 11 08/03/20 24 025 Discontinued(R eorder (will not trigger notification to Pharmacy)) methotrexate 2.5 MG tabletIndicatio ns:Psoriasiform dermatitis Take 6 tablets (15 mg total) by mouth 1 (one) time per week. Follow directions carefully, and ask to explain any part you do not understand. Take exactly as directed. 24 tablet 11 02/09/20 025 Discontinued(S jessy effects) buPROPion SR (Wellbutrin SR) 150 MG 12 hr tablet TAKE 1 TABLET (150 MG) BY MOUTH 2 TIMES DAILY. DO NOT CRUSH, CHEW, OR SPLIT. 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) 07/30/2025 Assessment & Plan (07/30/2025 2:48 PM EDT): Currently on Zepbound, doing well. She will follow-up with conceptor I discussed re weight reduction options including exercise, life style modifications, diet. Recommended to decrease soda and sugary beverage consumption, increase protein intake with meals (at least 1 portion of protein with each meal) to assist with satiety, increase dietary fiber Recommended at least 150 min/week of moderate intensity exercise. Thyroid nodule 06/19/2025 Primary osteoarthritis of both hands 04/18/2025 Tendinitis of both hands 04/18/2025 Assessment & Plan (07/30/2025 2:31 PM EDT): Will refer to OT again. Patient can use wrist brace for ADLs and follow-up with rheumatology Assessment & Plan (04/18/2025 2:36 PM EDT): No evidence of psoriatic arthritis, will refer to OT. Patient can use wrist brace for ADLs and follow-up with rheumatology Anxiety 09/19/2024 Moderately severe depression 09/19/2024 Assessment & Plan (07/30/2025 2:47 PM EDT): She is doing well on current dose of Wellbutrin, no change in medication She wants to hold off on additional referral to behavioral health, she feels safe at home and is able to reach out for safety Follow-up with me in 3 months Assessment & Plan (10/09/2024 1:44 PM EST): I gave her information about [facility] in [place] to call for appointment, a referral was [...] Myofascial pain syndrome 07/13/2024 Assessment & Plan (06/22/2025 12:43 PM EDT): Pt attended and participated in chronic pain group today - good engagement with group model of care - continue to use combination of non-pharmacological modalities to address pain - followup in 2-4 weeks Assessment & Plan (04/18/2025 2:28 PM EDT): [...] EDT): Probably Fibromyalgia, will follow up with Race Board Attendant. Will increase Topamax to 100 mg QHS [...] ears/scalp On methotrexate/ derm Assessment & Plan (07/30/2025 2:42 PM EDT): Ears and scalp lesions responding well to clobetasol and betamethasone creams She's off methotrexate, she will fu with Derm next month to change meds. Assessment & Plan (04/18/2025 2:32 PM EDT): Doing well on MTX and clobetasol shampoo Renal cyst 03/28/2024 Overview (03/28/2024): BL , simple cysts, seen on renal US 03/2024 ([facility]), no need to fu. Chronic gastritis without bleeding 11/29/2023 Overview (11/29/2023): Had EGD on 2019 ([facility]). Assessment & Plan (11/29/2023 2:41 PM EST): Had EGD on 2019 ([facility]). She maybe symptomatic. Use sucralfate tid [...] daily, use albuterol as needed Follow-up with obedience trainer Assessment & Plan (11/29/2023 2:33 PM EST): [...] r/o MDD pt has an appointent with [facility] counselor. FU in 6 weeks with me [...] of a mild psoriasis follow up with skilled trades teacher. Continue Methotrexate mg per week and follow up with skilled trades teacher. Essential hypertension 11/17/2022 Assessment & Plan (04/18/2025 2:13 PM EDT): Controlled off meds, sp bariatric surgery. Counseled re low salt diet/increase moderate physical activity. Check home BP BIW and prn CP/FERGUSON/CASEY Non smoking patient. FU in 6 months Assessment & Plan (07/13/2024 2:15 PM EDT): Fairly controlled, stage 1. Counseled re low salt diet/increase moderate physical activity. Check home BP BIW and prn CP/FEGRUSON/CASEY Follow up next appointment, may decide to [...] 11/17/2022 Overview (08/11/2023): EGD on 01/18/19 At [facility]: esophagitis + gastritis + duodenitis Assessment & Plan (02/14/2023 11:23 AM EDT): Most likely exacerbated by recent gastric sleeve Recommended smaller in fraction meals go back to liquid diet advance PO diet every other week use pantoprazole x2 days and sucralfate PRN encouraged to continue weight reduction Hyperparathyroidism 11/17/2022 Assessment & Plan (04/18/2025 2:15 PM EDT): Seen by conceptor, he is resistant to vitamin D supplementation. Obtain POC from [facility] endocrinology office Assessment & Plan (07/13/2024 2:18 [...] want to see her earlier for that. Obstructive sleep apnea syndrome 11/17/2022 Assessment & [...] 04/12/2019 Varicose veins of lower extremity 04/12/2019 Assessment & Plan (07/30/2025 2:31 PM EDT): Not improving with compression stockings, wants a referral to vascular surgery Snoring 04/12/2019 Kidney stone 09/26/2018 Polyp of ascending colon 09/26/2018 Pain in female pelvis 08/29/2018 H/O: hysterectomy 11/23/2017 Hemorrhoids 11/23/2017 Assessment & [...] 11/23/2017 Overview (08/11/2023): EGD on 01/18/19 at [facility]= History of cholecystectomy 11/23/2017 Lumbar foraminal stenosis 11/23/2017 Assessment & Plan (07/30/2025 9:53 AM EDT): >>ASSESSMENT AND PLAN FOR CHRONIC LOW BACK PAIN WRITTEN ON 05/02/2023 3:34 PM BY YAYA MORRISON refer to PT Assessment & Plan (07/30/2025 9:53 AM EDT): >>ASSESSMENT AND PLAN FOR CHRONIC LOW BACK PAIN WRITTEN ON 11/29/2023 2:36 PM BY BRITNI GRIFFITH MD Most likely related to DJD spine , exacerbated by weight gain Reccommended acupuncture Use tylenol prn Fu prn Assessment & Plan (11/17/2022 9:57 PM EST): Fairly controlled sxs with epidural injections Counseled re weight reduction. Nonalcoholic steatohepatitis 11/23/2017 Assessment & Plan (06/20/2023 11:07 AM EDT): LFTs have improved Order Liver US due to recent episode of Light Colored stools Resolved Problems Problem Noted Date Diagnosed Date [...] FU in 6 months. Diarrhea 08/29/2018 04/18/2025 Class 3 severe obesity due t o excess calories with serious comorbidity and body mass index (BMI) of 45.0 to 49.9 in adult 11/23/2017 Overview (04/18/2025): Status post bariatric surgery on November 2022/Dr. Willams/ Assessment & Plan (04/18/2025 2:27 PM EDT): Status post bariatric surgery on 2022, plateaued after approximately 35 pounds. Continue Zepbound per conceptor She has declined to continue follow-up with dietitian for weight management program, will remind her regarding swallow function meals and she could we will continue to replace one of the meals for protein shakes. Follow-up in 6-month Assessment & Plan (04/18/2025 9:01 AM EDT): >>ASSESSMENT AND PLAN FOR MORBID OBESITY ([facility]) WRITTEN ON 11/17/2022 9:59 PM BY BRITNI GRIFFITH MD Has lost 30 lb, fu with weight management program Bariatric surgery on 11/30 Assessment & Plan (04/18/2025 9:01 AM EDT): >>ASSESSMENT AND PLAN FOR MORBID OBESITY ([facility]) WRITTEN ON 07/13/2024 2:19 PM BY HIEU [...] not want to be referred to a professional athlete at this time. DC Topamax and start [...] wellbutrin. -Advised to make an appointment with [facility] Weight management clinic. Assessment & Plan (06/20/2023 11:10 AM EDT): She's sp bariatric surgery on nov 2022, lost total of 100 lb since Discussed re weight reduction options including exercise, life style modifications, diet, referral to phlebotomy specialist. Discussed re lower calorie intake, increase dietary fiber Encounters Date Type Department Care Team Description 08/08/2025 Telephone [facility] [address] [place] [address] Britni Griffith MD Medication Question 08/05/2025 Refill [facility] [address] [place] [address] Britni Griffith MD Lumbar paraspinal muscle spasm; Vitamin D deficiency 08/01/2025 Results Follow-Up [facility] [address] [place] [address] Britni Griffith MD Referral to Pulmonology 07/30/2025 9:45 AM EDT Office Visit [facility] [address] [place] [phone] Britni Griffith MD Tendinitis of both hands (Primary Dx); Moderately severe depression; Psoriasiform seborrheic dermatitis; Varicose veins of both lower extremities with pain; Morbid obesity with BMI of 40.0-44.9, adult (CMS/HCC); 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 Refill [facility] [address], [place] [phone] Britni Griffith MD 07/30/2025 Telephone [facility] [address], [place] [phone] Britni Griffith MD DME b/l wrist brace 07/30/2025 Telephone [facility] [address] [place] [phone] Britni Griffith MD [facility] Pulmonology 07/30/2025 Travel 07/26/[address] [phone] Britni Griffith MD Chart prep 07/26/[address] [address] Britni Griffith MD Appointment Request 07/22/2025 Patient Outreach [address] [address] Britni Griffith MD Pre-visit Planning (SDOH screening completed on 04/18/2025) 07/15/2025 Refill [facility] [address], [place] [phone] Britni Griffith MD 07/09/2025 Refill [facility] [address], [place] [phone] Britni Griffith MD 06/17/2025 11:00 AM EDT Office Visit [facility] [address] [place] [phone] Ana M Grimm MD Primary osteoarthritis of right knee (Primary Dx); Myofascial pain syndrome; Chronic bilateral thoracic back pain; Chronic bilateral low back pain without sciatica 06/17/2025 Travel 06/13/2025 9:30 AM EDT Office Visit [facility] [address] [place] [phone] Evan, Chloe, OD Presbyopia (Primary Dx) 06/10/2025 Travel 06/07/2025 Refill [facility] [address] [place] [phone] Luanne Waller MD Psoriasiform dermatitis 05/22/2025 Orders Only GENERIC EXTERNAL DATA DEPARTMENT Provider, Generic External Data 05/15/2025 10:00 AM EDT Office Visit [facility] [address] [place] [phone] Chloe Gordon, OD Diabetes type 2, 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) (Primary Dx); Retinal hole of both eyes; Lattice degeneration of both retinas; White without pressure of peripheral retina of right eye; Dry eyes; Presbyopia 05/15/2025 Travel 05/15/2025 Refill [facility] [address], [place] [phone] Britni Griffith MD Psoriasiform dermatitis 05/09/2025 Telephone [facility] [address], [place] [phone] Britni Griffith MD July recall 05/09/2025 Refill [facility] [address], [place] [phone] Britni Griffith MD from Last 3 Months [...] Sign Reading Time Taken Comments Blood Pressure 126/82 07/30/2025 9:54 AM EDT Pulse 80 07/30/2025 9:54 AM EDT Temperature 36 C (96.8 F) 07/30/2025 9:54 AM EDT Respiratory Rate 16 07/30/2025 9:54 AM EDT Oxygen Saturation 98% 08/29/2024 9:20 AM EDT Inhaled Oxygen Concentration - - Weight 114 kg (251 lb 6 oz) 07/30/2025 9:54 AM E DT Height 160 cm (5' 3 ) 07/30/2025 9:54 AM EDT Body Mass Index 44.53 07/30/2025 9:54 AM EDT Plan of Treatment Health Maintenance Due Date Last Done Comments [...] Lipid Panel 05/19/2024 05/19/2023, 04/15/2021 COVID-19 Vaccine (3 - season) 2025 09/22/2021, 08/27/2021 Influenza Vaccine (#1) 2025 Mammogram 08/03/2025 08/03/2024, 07/09, 01/27/2022, Additional history exists Diabetes: Hemoglobin A1C 10/18/2025 025, 10/09/2024, 07/13/2024, Additional history exists Depression Screening 04/18/2026 04/18/2025, 10/09/20 24 Disability Screening 04/18/2026 04/18/2025 Family Planning (PISQ) 04/18/2026 04/18/2025 SDOH Screening 04/18/2026 04/18/2025 Diabetes: Urine Protein Screening 05/22/2026 05/22/2025, 11/17/2023, 05/19/2023 Tobacco Screening 07/30/2026 07/30/2025 Eye Exam 05/15/2027 05/15/2025, 07/0 07/2025, 05/15/2025, [...] Procedure Name Priority Date/Time Associated Diagnosis Comments AMB REFERRAL TO PULMONOLOGY Routine 07/04/2025 Moderate persistent asthma with acute exacerbation KAPPA/LAMBDA LIGHT CHAINS FREE WITH RATIO, SERUM Routine 05/22/2025 10:46 AM EDT BRITNI SCREEN, IFA, W/REFL TITER AND PATTERN Routine 05/22/2025 10:46 AM EDT HIV 1/2 ANTIGEN/ANTIBODY, FOURTH GENERATION W/RFL Routine 05/22/2025 10:46 AM EDT HEPATITIS B, C PROFILE Routine 05/22/2025 10:46 AM EDT URINE PROTEIN, TOTAL, RANDOM [...] Recently Relevant to Health Maintenance Results * Referral to Pulmonology (07/04/2025) Pierre Westfall MD OUTPATIENT REFERRAL ORDERABLES F inal Result * Hepatitis B, C Profile (05/22/2025 10:46 AM EDT) ~Hepatitis B Surface Antibody NONREACTIVE Nonreactive [facility] Comment:Nonreactive: < 8.00 mIU/mL Hepatitis B Core Antibody Nonreactive Nonreactive [facility] Hepatitis C Antibody Nonreactive Nonreactive [facility] Comment:Antibodies to HCV no t detected; does not exclude early acuteHCV infection. Hepatitis B Surface Ag Negative Negative [facility] 05/22/2025 10:4 6 AM EDT 05/22/2025 1:57 PM EDT Generic External Data Provider LAB BLOOD ORDERAB LES Final Result [facility] [address], [place] [phone] * Vitamin D, 25-Hydroxy, Total, Immunoassay (05/22/2025 10:46 AM EDT) Vitamin D 25-OH Total 40.3 >30 ng/mL [facility] Comment: Health Based Reference Values*< 20 ng/mL Imonyiaku10-34 ng/mL Insufficient> 30 ng/mL Sufficient*Holick MF. N Engl J Med. 2007;[id number]:266-280There is no [...] Provider LAB BLOOD ORDERAB LES Final Result [facility] [address] [place] [phone] * Urinalysis with Reflex to Microscopic (05/22/2025 10:46 AM EDT) Color Urine Yellow [facility] Appearance Urine Cloudy [facility] PH 6.0 5.0 - 9.0 [facility] Glucose Urine UA Negative Negative mg/dL [facility] Urine Blood Negative Negative [facility] Specific [place] - Urine 1.025 1.005 - 1.025 [facility] Urine Protein Negative Neg-Trace mg/dL [facility] Urine Ketones Trace Negative mg/dL [facility] Nitrite Urine Negative Negative [facility] Leukocyte Esterase Urine Negative Negative [facility] 05/22/2025 10:4 6 AM EDT 05/22/2025 1:41 PM EDT Generic External Data Provider LAB URINE ORDERAB LES Final Result Performing Organization Address [facility] Co de Phone Number [facility] [address] [place] [phone] * Albumin, Random Urine W/Creatinine (05/22/2025 10:46 AM EDT) Creatinine, Urine 278.70 mg/dL [facility] Microalbumin Urine 15.0 mg/L [facility] Microalbum Creatinine Ratio Ur 5.3 <30 ug/mg cr [facility] Comment:Albumin/Creatinine R atio Reference Ranges: Normal: < 30 ug/mg creatinine Microalbuminuria: 30 - 300 ug/mg creatinineClinical Albuminuria: > 300 ug/mg creatinine 05/22/2025 10:4 6 AM EDT 05/22/2025 1:41 PM EDT Generic External Data Provider LAB URINE ORDERAB LES Final Result Performing Organization Address [facility] Co de Phone Number [facility] [address] [place] [phone] * Secretary/Lambda Light Chains, Free with Ratio (05/22/2025 10:46 AM EDT) Secretary Light Chain, Free, Serum 400 176 - 443 mg/dL [facility] Lambda Light Chain, Free, Serum 198 91 - 240 mg/dL [facility] Secretary/Lambda Light Chains Free With Ratio, Serum 2.02 1.29 - 2.55 [facility] Comment:This assay provides a measurement of [...] myeloma, lymphoproliferative disorders, andamyloidosis.THIS TEST WAS PERFORMED AT:[facility] [id number] [facility] [place] [phone] BERRY MD,PHD,RUSLAN 05/22/2025 10:4 6 AM EDT 05/22/2025 1:57 PM EDT Generic External Data Provider LAB BLOOD ORDERAB LES Final Result Performing Organization Address City/[facility]/ZIP Co de Phone Number [facility] [address] [place] [phone] * (ABNORMAL) Urine Protein, Total, Random without Creatinine (05/22/2025 10:46 AM EDT) Protein, Total, Random Urine 13(H) <12 mg/dL [facility] 05/22/2025 10:4 6 AM EDT 05/22/2025 1:41 PM EDT Generic External Data Provider LAB URINE ORDERAB LES Final Result Performing Organization Address [facility] Co de Phone Number [facility] [address] [place] [phone] * HIV-1/2 Antigen and Antibodies, Fourth Generation, with Reflexes (05/22/2025 10:46 AM EDT) HIV AB/AG Nonreactive Nonreactive [facility] Comment:HIV-1 p24 Ag and/or HIV-1/HIV-2 Ab not detected.A test result that is nonreactive does not exclude thepossibility of exposure to or infection with HIV-1 and/orHIV-2. Nonreactive results in this assay for individualswith prior exposure to HIV-1 and/or HIV-2 may be due toantigen and antibody levels that are below the limit ofdetection of this assay.The [employer] HIV Ag/Ab Combo assay result andsupplemental assay results should be interpreted inconjunction with the patient's clinical presentation,history and other laboratory results. If the results areinconsistent with clinical evidence, additional testing issuggested to confirm the result. 05/22/2025 10:4 6 AM EDT 05/22/2025 1:57 PM EDT us Generic External Data Provider LAB BLOOD ORDERAB LES Final Result Performing Organization Address [facility]/ZIP Co de Phone Number [facility] [address] [place] [phone] * BRITNI Screen,IFA, with Reflex to Titer and Pattern (05/22/2025 10:46 AM EDT) Anti Nuclear Antibody Screen NEGATIVE NEGATIVE [facility] Comment:BRITNI IFA is a first l [...] clinicallysuspected inflammatory myopathies.AC-0: NegativeInternational Consensus on BRITNI Patterns(https://doi.org/10.1515/ezqz-[email or web address])For additional information, please refer tohttp://education.HeyBubble/faq/ZIT245(This link is being provided for informational/educational purposes only.)THIS TEST WAS PERFORMED AT:[facility] [place] [phone] KIMBROUGH MD BRITNI Titer TNP [facility] BRITNI Pattern TNP [facility] BRITNI TITER 2 (REF LAB) [facility] 2 [facility] 3 [facility] BRITNI PATTERN 3 [facility] 05/22/2025 10:4 6 AM EDT 05/22/2025 1:57 PM EDT us Generic External Data Provider LAB BLOOD ORDERAB LES Final Result [facility] [address] [place] [phone] * Uric acid (05/22/2025 10:46 AM EDT) Uric Acid 5.6 2.4 - 5.7 mg/dL [facility] 05/22/2025 10:4 6 AM EDT 05/22/2025 1:57 PM EDT Generic External Data Provider LAB BLOOD ORDERAB LES Final Result Performing Organization Address [facility] Co de Phone Number [facility] [address] [place] [address] [phone] * Phosphate (As Phosphorus) (05/22/2025 10:46 AM EDT) Phosphorus 2.8 2.7 - 4.5 mg/dL [facility] 05/22/2025 10:4 6 AM EDT 05/22/2025 1:57 PM EDT us Generic External Data Provider LAB BLOOD ORDERAB LES Final Result Performing Organization Address [facility] Co de Phone Number [facility] [address] [place] [address] [phone] * (ABNORMAL) PTH, Intact Without Calcium (05/22/2025 10:46 AM EDT) Parathyroid Hormone, Intact 102.0(H) 8.7 - 77.1 pg/mL [facility] 05/22/2025 10:4 6 AM EDT 05/22/2025 1:53 PM EDT Generic External Data Provider LAB BLOOD ORDERAB LES Final Result Performing Organization Address [facility] Co de Phone Number [facility] [address] [place] [address] [phone] * (ABNORMAL) Basic Metabolic Panel (05/22/2025 10:46 AM EDT) Sodium 140 135 - 145 mmol/L [facility] Potassium 3.5 3.3 - 5.1 mmol/L [facility] Chloride 105 96 - 108 mmol/L [facility] Carbon Dioxide 28 22 - 29 mmol/L [facility] Anion Gap 11(L) 12 - 20 [facility] Urea Nitrogen (BUN) 15 9 - 16 mg/dL [facility] Creatinine, Serum 0.66 0.5 - 1.4 mg/dL [facility] Estimated Glomerular Filt Rate >60 [facility] Comment:Chronic Kidney Disea se: Estimated GFR < 60 mL/min/1.87w3Dvkabt Kidney Disease: Estimated GFR < 15 mL/min/1.73m2 Glucose 88 60 - 115 mg/dL [facility] Calcium 8.6 8.4 - 10.2 mg/dL [facility] 05/22/2025 10:4 6 AM EDT 05/22/2025 1:57 PM EDT us Generic External Data Provider LAB BLOOD ORDERAB LES Final Result Performing Organization Address City/State/[facility] Co de Phone Number [facility] [address] [place] [phone] * POCT HGB A1C (04/18/2025 9:13 AM EDT) Hemoglobin A1C 5.1 4.0 - 6.0 % QC Media Lot # [id number] Lot# Expiration Date Blood 04/18/2025 9:13 AM EDT us Britni Griffith MD POINT OF CARE TEST ENTER /EDIT ORDERABLES Final Result * BI Mammogram Screening Tomosynthesis Bilateral (08/03/2024 9:30 AM EDT) Anatomical Region Laterality Modality Breast Bilateral Mammography 08/03/2024 9:30 AM EDT Narrative 08/15/2024 9:26 AM EDT [address] [place] [address] Mammography Report Signed Patient: Mikaela Espinal MR#: [id number] : 1980 Acct:[id number] Age/Sex: 44 / F ADM Date: 08/03/24 Loc: HO.MAMMO Attending Dr: Britni Griffith MD Ordering Physician: Britni Griffith MD Results: 1Ne gative Date of Service: 08/03/24 Follow Up: 1 Year From Orig ina Mammogram Procedure(s): MM tomosynthesis screening BI Accession Number(s): [id number] cc: Britni Griffith MD EXAMINATION: MM SCREENING [...] in OV> 08/15/24923 DD/ 9 TD/TT: 08/03/24956 Admitting Manager: Procedure Note Donotuseinterpreter, Image - 08/15/[address] [place] [address] Mammography Report Signed Patient: Mikaela Espinal LMR#: [id number] : 1980Acct:[id number] Age/Sex: 44 / FADM Date: 08/03/24 Loc: HO.MAMMO Attending Dr: Britni Griffith MD Ordering Physician: Britni Griffith MDResults: 1Ne gative Date of Service: 08/03/24Follow Up: 1 Year From Orig inal Mammogram Procedure(s): MM tomosynthesis screening BI Accession Number(s): [id number] cc: Britni Griffith MD EXAMINATION: MM SCREENING [...] in OV> 08/15/24923 DD/ 9 TD/TT: 08/03/24956 Admitting Manager: Britni Griffith MD IMG BI PROCEDURES Final Result * Hm Colonoscopy (07/05/2024) Colonoscopy Normal Normal Historical Provider HEALTH MAINTENANCE Final Result * Lipid Panel, Standard (05/19/2023 11:40 AM EDT) Triglycerides 54 mg/dL [facility] Comment:Desirable Triglyceri de: less than 150 mg/dLBorderline High Triglyceride 150-199 mg/dLHigh Triglyceride: 200-499 mg/dLVery High Triglyceride: greater than or equal to 5OO mg/dL Cholesterol 153 mg/dL [facility] Comment:Desirable Cholestero l: less than 200 mg/dLBorderline High Cholesterol: 200-239 mg/dLHigh Cholesterol: greater than 239 mg/dL LDL Cholesterol Calculated 76 mg/dl [facility] Comment:Desirable LDL: less than 100 mg/dLNear Optimal/Above Optimal LDL: 110- 129 mg/dLBorderline High LDL: 130-159 mg/dLHigh LDL: 160-189 mg/dLVery High LDL: greater than or equal to 190 mg/dL HDL Cholesterol 67 mg/dL [facility] Comment:Desirable HDL: great er than 40 mg/dL Note: This HDL assay may give artificially low results in patients with liver disease. 05/19/2023 11:4 0 AM EDT 05/19/2023 11:40 AM EDT [facility] External Provider LAB BLO OD ORDERABLES Final Result [facility] [address] [place] [phone] from Last 3 Months or Most Recently Relevant to Health Maintenance Insurance C3 Care Teams Sales Engineer [employer]ered Products Relationship Specialty Start Date End Date Britni Griffith MD [address] [place] [phone] PCP - General Family Medicine 06/19/18
--- OUTSIDE RECORDS SUMMARY | 2025-08-09 10:22 | XMS_ITS | Encounter Summary ---
Author Organization [employer] Address [address] [facility] [address] [place] [address] Care Team Providers Care Cds Sales Advisor Name Role Phone Moni Green MD Primary Care Provider + Reason for Visit * Reason Onset Date Comments Med Refill 08/05/2025 Encounter Details Date Type Department Care Team (Late st Contact Info) Description 08/05/2025 Refill [facility] [address] [place] [address] Moni Green MD [address] [place] [address] Lumbar paraspinal muscle spasm; Vitamin D deficiency Social History Tobacco Use Types Packs/Day Years [...] as of this encounter Visit Diagnoses Diagnosis Lumbar paraspinal muscle spasm Other symptoms referable to back Vitamin D deficiency documented in this encounter Additional Health Concerns Assessment Noted Time PHQ-9 Depression Total Score: 8 10/09/20 24 11:43 AM EST documented as of this encounter Care Teams Cds Sales Advisor Relationship Specialty Start Date End Date Moni Green MD [address] [place] [phone] PCP - General Family Medicine 06/19/18 documented as of this encounter
--- OUTSIDE RECORDS SUMMARY | 2025-08-09 10:22 | XMS_ITS | Encounter Summary ---
Author Organization [employer] Address [address] [facility] 7[address] [place] [address] Care Team Providers Care Cook Tortilla Name Role Phone Moni Green MD Primary Care Provider + Reason for Visit * Reason Comments Med Refill Encounter Details Date Type Department Care Team ([facility] st Contact Info) Description 05/15/[address] 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
--- OUTSIDE RECORDS SUMMARY | 2025-08-09 10:22 | XMS_ITS | Encounter Summary ---
Author Organization [employer] Address [address] [facility] [address] [place] [address] Care Team Providers Care Senior Cyber Security Analyst Name Role Phone Moni Green MD Primary Care Provider + Reason for Visit * Reason Onset Date Comments Med Refill 08/03/2024 Encounter Details Date Type Department Care Team ([facility] st Contact Info) Description 08/03/2024 Refill [facility] [address] [place] [address] Moni Green MD [address] [place] [address] Vitamin D deficiency Social History Tobacco Use Types Packs/Day Years Used Date Smoking Tobacco: Never Passive Smoke Exposure: Never Smokeless Tobacco: Never Alcohol Use Standard Drinks/Week Comments Never 0 (1 standard drink = 0.6 oz pur e alcohol) Depression Answer Date Recorded Patient Health Questionnaire-9 Score 0 02/14/2023 Housing Stability Answer Date Recorded What is your housing situation today? I have jennifer azevedo 08/22/[address] you li ve. Do you have problems with any of the following? None of the above 08/22/2023 Food Insecurity Answer Date Recorded Within the past 12 months, y ou worried that your food would run out before you got money to buy more: Never True 08/22/2023 Within the past 12 months,th e food you bought just didn't last and you didn't have enough money to get more: Never True Transportation Answer Date Recorded In the past 12 months, has l ack of transportation kept you from medical appts, meetings, work or from getting things needed for daily living? No 08/22/2023 Utilities Answer Date Recorded In the past 12 months, has t he electric, gas, oil or water company threatened to shut off services in your home? No 08/22/2023 Depression Answer Date Recorded Patient Health Questionnaire-2 Score 0 02/14/2023 Comments No Sex and Gender Information Value Date Recorded Sex Assigned at Female 09/06/2022 10:32 AM EDT Legal Sex Female 10:32 AM EDT Gender Identity Female 09/06/2022 10:32 AM EDT Sexual Orientation Straight 09/06/2022 10 :32 AM EDT documented as of this encounter Plan of Treatment Not on file documented as of this encounter Visit Diagnoses Diagnosis Vitamin D deficiency documented in this encounter Additional Health Concerns Assessment Noted Time PHQ-9 Depression Total Score: 0 02/15/20 23 10:46 AM EDT documented as of this encounter Care Teams Senior Cyber Security Analyst Relationship Specialty Start Date End Date Moni Green MD [address] [place] [phone] PCP - General Family Medicine 06/19/18 documented as of this encounter
--- OUTSIDE RECORDS SUMMARY | 2025-08-09 10:22 | XMS_ITS | Encounter Summary ---
Author Organization [employer] Address [address] [facility] [address] [place] [address] Care Team Providers Care Ferry Pilot Name Role Phone Moni Green MD Primary Care Provider + Reason for Visit * Reason Comments Med Change Request Encounter Details Date Type Department Care Team ([facility] Contact Info) Description 08/11/2023 Refill [facility] [address] [place], [place] [phone] Moni Green MD [address] [place] [address] Moderate persistent asthma without complication Social History Tobacco Use Types Packs/Day Years [...] as of this encounter Visit Diagnoses Diagnosis Moderate persistent asthma without complication documented in this encounter Additional Health Concerns Assessment Noted Time PHQ-9 Depression Total Score: 0 02/15/20 23 10:46 AM EDT documented as of this encounter Care Teams Ferry Pilot Relationship Specialty Start Date End Date Moni Green MD [address] [place] [phone] PCP - General Family Medicine 06/19/18 documented as of this encounter
== END 2025-08-09 09:47 | disposition home or self-care (01) ==
LOC: HO.MAMMO 09:46
PROVIDERS: PCP Internal Medicine; Visit Provider Internal Medicine
DX: Z13.89 Encounter for screening for other disorder (principal)

== ENCOUNTER 2025-10-23 10:01 | Outpatient (AMB) | payer MEDICAID, SELFPAY ==
--- NOTE | 2025-10-23 10:03 | A.OFFVIS_ITS ---
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 She states she has bilateral leg pain that has been going on for years. She always experiences cramping , swelling and tingling. 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 Complaints include pain over varicosities, swelling of lower extremities, cramping, fatigue, and heaviness of the lower extremities. It has been affecting there daily activities including walking. It is noted more so in left leg. Patient denies any previous venous surgery or injections. Patient denies any history of DVT/ PE. Patient denies any history of phlebitis. Trial of compression includes - [id number] They now present for vascular evaluation regarding their varicose veins. [facility] Medical History Steatosis, liver Arthritis GERD (gastroesophageal reflux disease) HTN (hypertension) Asthma SUMIT on CPAP Surgical History S/P laparoscopic sleeve gastrectomy H/O: hysterectomy H/O tubal ligation Hx of cholecystectomy Hx of colonoscopy Hx of section Family History Mother Hypertension Father Diabetes Hypertension Heart problem Son No problems noted. Son No problems noted. Daughter No problems noted. Daughter No problems noted. Social History Household Members: Family Housing: House Are you a primary medical care evaluation specialist to a significant other at home: No Do you presently have visiting nurse or other home services: No 75 years or older and lives alone: No Alcohol intake: never Comment: patient wears a brace on right knee, r/t arthritis Patient Tobacco Use Status: Never used Tobacco Review of Systems Const Reports as per HPI ENT Reports no additional complaints Card Denies chest pain, Denies chest pain at rest and Denies chest pain with activity Resp Denies chest congestion and Denies cough GI Reports no additional complaints Musc Details: pain over varicosities, aching of lower extremities, swelling, cramping, heaviness and tiredness, itching Denies abnormal gait Skin/Breast Reports pruritus and Denies wounds Neuro Reports no additional complaints and Denies abnormal gait Psych Denies no additional complaints Physical Exam Const General: cooperative, healthy appearing and comfortable Orientation/consciousness: oriented to person, oriented to place and oriented to time Neck Carotids: no bruits Chest Chest palpation & inspection: normal inspection of the chest and normal palpat ion of entire chest wall Resp Effort & Inspection: normal respiratory effort and able to speak in complete sentences Cardio Rate: regular rate Heart sounds: S1 normal heart sound present and S2 normal heart sound present Peripheral pulses: Peripheral pulses 2+ throughout GI Inspection: Yes normal to inspection Skin Other: +2 edema, large rope-like varicosities greater than 4 mm CEAP Classification C4 - skin color changes Ep - Etiology Primary As - superficial veins P - reflux General skin exam: dry skin Neuro General: oriented to person, oriented to place and oriented to time Extrem Right lower extremity: full ROM, normal capillary refill and edema Left lower extremity: full ROM, normal capillary refill and edema Psych Mental Status: mental status grossly normal Assessment & Plan Assessment & Plan (1) Varicose veins of left lower extremity with inflammation: Code(s): I83.12 - Varicose veins of left lower extremity with inflammation Category: Medical Plan: In short, the patient has evidence of venous insufficiency. I have discussed the pathophysiology with the patient. In addition I have provided informational material regarding venous disease to the patient. We have discussed conservative measures including compression, elevation, and exercise. I have also provided a handout regarding appropriate use of compression stockings and where to purchase good compression stockings as well. I have taken the liberty of ordering venous insufficiency testing with the patient. They will follow up with me after testing. The patient had an opportunity to ask questions regarding the treatment plan. All questions were answered. Imaging studies, laboratory studies and physical exam results were discussed and reviewed in detail. No major barriers to understanding were identified. The patient expressed understanding and agreement with the above treatment plan. The patient is aware they should contact our office by phone for worsening of the current condition or the appearance of new symptoms. Thank you for allowing me to participate in the vascular care of this patient. If you have any questions or concerns regarding the treatment for the above condition please do not hesitate to contact me. The office telephone contact is [phone]. This note is constructed using voice recognition software. While every effort has been made to ensure accuracy, multimedia instructional designer errors may have been included. Thank you for allowing me to participate in the care of your patient. Yours sincerely, Eveilo Car MD, FACS, R.P.V.I. Orders: Orders US venous duplex LE BI Today I83.12 - Varicose veins of left lower extremity with inflammation Coding Level of Care Code New Pt Level 4 (27243) Diagnoses Varicose veins of left lower extremity with inflammation I83.12
--- OUTSIDE RECORDS SUMMARY | 2025-10-23 12:13 | XMS_ITS | Encounter Summary ---
Author Organization [employer] Address [address] [facility] [address] [place] [address] Care Team Providers Care Raw Finish Mill Operator Name Role Phone Moni Green MD Primary Care Provider + Reason for Visit * Reason Onset Date Comments Med Refill 08/03/2024 Encounter Details Date Type Department Care Team ([facility] st Contact Info) Description 08/03/2024 Refill [facility] [address] [place] [address] Moni Green MD [address] [place] [address] Vitamin D deficiency Social History Tobacco Use [...] as of this encounter Plan of Treatment Upcoming Encounters Date Type Department Care Team (Late st Contact Info) Description 11/15/2025 1:15 PM EST Office Visit [facility] [address] [place] [phone] Luanne Waller MD [address] [place] [phone] documented as of this encounter Visit Diagnoses Diagnosis Vitamin D deficiency documented in this encounter Additional Health Concerns Assessment Noted Time PHQ-9 Depression Total Score: 0 02/15/20 23 10:46 AM EDT documented as of this encounter Care Teams Raw Finish Mill Operator Relationship Specialty Start Date End Date oMni Green MD [address] [place] [phone] PCP - General Family Medicine 06/19/18 documented as of this encounter
--- OUTSIDE RECORDS SUMMARY | 2025-10-23 12:13 | XMS_ITS | Clinical Summary ---
Author Organization [employer] Address [address] [facility] 7t [place] [address] Care Team Providers Care Distribution Center Supervisor Name Role Phone Britni Green MD Primary [...] TO SKIN ROUTE EVERY DAY 3 Active beta carotene (vitamin A) 3 MG (20127 UT) capsule Take 10,000 Units by mouth in the morning. Active Galzin 25 MG capsule TAKE 1 CAPSULE (25 MG) ORALLY DAILY 3 Active omeprazole (PriLOSEC) [address] capsule Take 40 mg by mouth. 9 Active ergocalciferol (Vitamin D2) 1.25 MG (44373 UT) capsuleIndication s:Vitamin D deficiency TAKE 1 CAPSULE BY MOUTH ONCE A WEEK 12 capsule 4 Active dicyclomine (Bentyl) 10 MG capsuleIndication s:Grade II hemorrhoids TAKE 1 CAPSULE BY MOUTH THREE TIMES A DAY 270 capsule 4 Active budesonide-formot se (Symbicort) 160-4.5 MCG/ACT inhalerIndication s:Moderate persistent asthma without complication INHALE 2 PUFFS BY MOUTH TWICE DAILY IN THE MORNING AND EVENING. 10.2 each 3 5 Active ketoconazole (NIZOral) 2 % shampooIndication s:Psoriasiform dermatitis Apply topically 3 (three) times a week. 120 mL 3 5 Active folic acid (Folvite) 1 MG tabletIndications :Psoriasiform dermatitis Take 1 tablet (1 mg) by mouth Once per day. 30 tablet 11 5 02/09/20 26 Active gabapentin (Neurontin) 300 MG capsule TAKE 1 CAPSULE POR VIA ORAL AL ACOSTARSE 90 capsule 1 5 Active cetirizine (ZyrTEC) 10 MG tabletIndications :Chronic rhinitis TAKE 1 TABLET BY MOUTH EVERY MORNING 90 tablet 1 5 Active meloxicam (Mobic) 15 MG tablet TAKE 1 TABLET BY MOUTH EVERY DAY 30 tablet 5 Active calcium citrate (Calcitrate) 950 (200 Ca) MG tablet See Instructions, TOME DOS TABLETAS POR VIA ORAL DOS VECES AL JOVANA, # 360 tablet, 0 Refills, Maintenance, 03/28/25 2:58:00 PM EDT, [id number], 160, cm, 03/04/25 15:12:00 EDT, Height, 114, [...] AND 2 TABLETS WITH DINNER 5 Active Fluocinolone Acetonide Scalp 0.01 % oilIndications:Ps oriasiform dermatitis USE 2-3 TIMES WEEKLY AT NIGHT AND APPLY COVERS 118.28 mL 3 5 Active Zepbound 5 MG/0.5ML solution auto-injector 5 Active buPROPion SR (Wellbutrin SR) 150 MG 12 hr tablet TAKE 1 TABLET (150 MG) BY MOUTH 2 TIMES DAILY. DO NOT CRUSH, CHEW, OR SPLIT. 180 tablet 2 5 Active betamethasone, augmented, (Diprolene) 0.05 % lotionIndications :Psoriasiform dermatitis Apply topically Once per day. 30 mL 2 5 Active hydrocortisone (Anusol-HC) 2.5 % rectal cream Insert into the rectum 2 times daily. 28 g 3 5 Active ipratropium-albut se (Duo-Neb) 0.5-2.5 mg/3 mL nebulizer solution INHALE 1 AMPULE BY NEBULIZER EVERY 6 HOURS 180 mL 5 Active cyclobenzaprine (Flexeril) 10 MG tabletIndications :Lumbar paraspinal muscle spasm Take 1 tablet (10 mg) by mouth if needed at bedtime for muscle spasms. TOME NISH TABLETA TODOS LOS [place] AL ACOSTARSE 30 tablet 3 5 Active linaCLOtide (Linzess) 145 MCG capsuleIndication s:Vitamin D deficiency Take 1 capsule (145 mcg) by mouth before breakfast. Do not crush or chew. 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 She will follow-up with box toe cementer I discussed re weight reduction options including [...] about [facility] in [place] to call for appointment, a referral was [...] EDT): Probably Fibromyalgia, will follow up with [employer]. Will increase Topamax to 100 mg QHS [...] simple cysts, [place] no need to fu. Chronic gastritis without bleeding 11/29/2023 Overview (11/29/2023): Had EGD on 2019 ([facility]). Assessment & Plan (11/29/2023 2:41 PM EST): Had EGD on 2019 ([facility]). She maybe symptomatic. Use sucralfate tid [...] daily, use albuterol as needed Follow-up with field cashier Assessment & Plan (11/29/2023 2:33 PM EST): [...] r/o MDD pt has an appointent with [facility] counselor. FU in 6 weeks with me [...] of a mild psoriasis follow up with switch engineer. Continue Methotrexate mg per week and follow up with switch engineer. Essential hypertension 11/17/2022 Assessment & Plan (04/18/2025 [...] 11/17/2022 Overview (08/11/2023): EGD on 01/18/19 At [facility]: esophagitis + gastritis + duodenitis Assessment & Plan (02/14/2023 11:23 AM EDT): Most likely exacerbated by recent gastric sleeve Recommended smaller in fraction meals go back to liquid diet advance PO diet every other week use pantoprazole x2 days and sucralfate PRN encouraged to continue weight reduction Hyperparathyroidism 11/17/2022 Assessment & Plan (04/18/2025 2:15 PM EDT): Seen by box toe cementer, he is resistant to vitamin D supplementation. 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 Willams/ Assessment & Plan (04/18/2025 2:27 PM EDT): Status post bariatric surgery on 2022, plateaued after approximately 35 pounds. Continue Zepbound per box toe cementer She has declined to continue follow-up with [...] not want to be referred to a power systems engineer at this time. DC Topamax and start [...] wellbutrin. -Advised to make an appointment with [facility] [place]. Assessment & Plan (06/20/2023 11:10 AM EDT): She's sp bariatric surgery on nov 2022, lost total of 100 lb since Discussed re weight reduction options including exercise, life style modifications, diet, referral to technology sales specialist. Discussed re lower calorie intake, increase dietary fiber Encounters Date Type Department Care Team Description 09/13/2025 Refill [facility] [address] [place] [address] Luanne Waller MD Psoriasiform dermatitis 08/09/2025 Telephone [facility] [address] [place], [place] [phone] Britni Green MD telephone call 08/09/2025 Telephone [facility] [address] [place], [place] [phone] Britni Green MD Telephone 08/08/2025 Telephone [facility] [address] [place] [address] Britni Green MD Medication Question 08/05/2025 Refill [facility] [address] [place], [place] [phone] Britni Green MD Lumbar paraspinal muscle spasm; Vitamin D deficiency 08/01/2025 Results Follow-Up [facility] [address] [place] [phone] Britni Green MD Referral to Pulmonology 07/30/2025 9:45 AM EDT Office Visit [address] [address] Britni Green MD Tendinitis of both hands (Primary Dx); Moderately severe depression; Psoriasiform seborrheic dermatitis; Varicose veins of both lower extremities with pain; Morbid obesity with BMI of 40.0-44.9, adult (CMS/HCC); 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 Refill [facility] [address] [place], [place] [phone] Britni Green MD 07/30/[address] [address] Britni Green MD DME b/l wrist brace 07/30/[address] [phone] Britni Green MD [facility] Pul[facility] 07/30/2025 Travel 07/26/[address] [phone] Britni Green MD Chart prep 07/26/[address] [phone] Britni Green MD Appointment Request from Last 3 Months Immunizations Immunization Administration [...] 07/30/2025 9:54 AM EDT Plan of Treatment Upcoming Encounters Date Type Department Care Team (Late st Contact Info) Description 11/15/2025 1:15 PM EST Office Visit [facility] [address] [place] [address] Luanne Waller MD [address] [place] [address] Health Maintenance Due Date Last Done Comments [...] 05/19/2024 05/19/2023, 04/15/2021 COVID-19 Vaccine ( season) 2025 09/22/2021, 08/27/2021 Influenza Vaccine (#1) 2025 Mammogram 08/03/2025 08/03/2024, 07/09, 01/27/2022, Additional history exists Diabetes: Hemoglobin A1C 10/18/2025 025, 10/09/2024, 07/13/2024, Additional history exists Depression Screening 04/18/2026 04/18/2025, 10/09/20 24 Disability Screening 04/18/2026 04/18/2025 Family Planning (PISQ) 04/18/2026 04/18/2025 SDOH Screening 04/18/2026 04/18/2025 Diabetes: Urine Protein Screening 05/22/2026 05/22/2025, 05/22/2025, 11/17/2023, Additional history exists Tobacco Screening 07/30/2026 07/30/2025 Eye Exam 05/15/2027 05/15/2025, 07/0 07/2025, 05/15/2025, Additional history exists DTaP/Tdap/Td Vaccines (3 - Td or Tdap) 11/23/2027 11/23/2017, 11/04/1996 Zoster Vaccines (1 of 2) 02/14/2028 Colonoscopy 07/05/2034 07/05/2024, 07/05/2024 Colorectal Cancer Screening 07/05/2034 RSV Patients [...] Procedure Name Priority Date/Time Associated Diagnosis Comments HEPATITIS B, C PROFILE Routine 10:46 AM EDT HIV 1/2 ANTIGEN/ANTIBODY, FOURTH GENERATION W/RFL Routine 05/22/2025 10:46 AM EDT ALBUMIN, RANDOM URINE W/CREATININE Routine 05/22/2025 10:46 AM EDT POCT GLYCATED [...] EDT) ~Hepatitis B Surface Antibody NONREACTIVE Nonreactive [facility] Comment:Nonreactive: < 8.00 mIU/mL Hepatitis B Core Antibody Nonreactive Nonreactive [facility] Hepatitis C Antibody Nonreactive Nonreactive [facility] Comment:Antibodies to HCV no t detected; does not exclude early acuteHCV infection. Hepatitis B Surface Ag Negative Negative [facility] 05/22/2025 10:4 6 AM EDT 05/22/2025 1:57 PM EDT us Generic External Data Provider LAB BLOOD ORDERAB LES Final Result [facility] [address] [place] [phone] * Albumin, Random Urine W/Creatinine (05/22/2025 10:46 AM EDT) Creatinine, Urine 278.70 mg/dL [facility] Microalbumin Urine 15.0 mg/L [facility] Microalbum Creatinine Ratio Ur 5.3 <30 ug/mg cr [facility] Comment:Albumin/Creatinine R atio Reference Ranges: Normal: < 30 ug/mg creatinine Microalbuminuria: 30 - 300 ug/mg creatinineClinical Albuminuria: > 300 ug/mg creatinine 05/22/2025 10:4 6 AM EDT 05/22/2025 1:41 PM EDT us Generic External Data Provider LAB URINE ORDERAB LES Final Result Performing Organization Address [facility] Co de Phone Number [facility] [address] [place] [phone] * HIV-1/2 Antigen and Antibodies, Fourth Generation, with Reflexes (05/22/2025 10:46 AM EDT) HIV AB/AG Nonreactive Nonreactive [facility] Comment:HIV-1 p24 Ag and/or HIV-1/HIV-2 Ab not detected.A test result that is nonreactive does not exclude thepossibility of exposure to or infection with HIV-1 and/orHIV-2. Nonreactive results in this assay for individualswith prior exposure to HIV-1 and/or HIV-2 may be due toantigen and antibody levels that are below the limit ofdetection of this assay.The iogynniAginova HIV Ag/Ab Combo assay result andsupplemental assay results should be interpreted inconjunction with the patient's clinical presentation,history and other laboratory results. If the results areinconsistent with clinical evidence, additional testing issuggested to confirm the result. 05/22/2025 10:4 6 AM EDT 05/22/2025 1:57 PM EDT us Generic External Data Provider LAB BLOOD ORDERAB LES Final Result Performing Organization Address [facility] Co de Phone Number [facility] [address] [place] [phone] * POCT HGB A1C (04/18/2025 9:13 AM EDT) Hemoglobin A1C 5.1 4.0 - 6.0 % QC Media Lot # [id number] Lot# Expiration Date Blood 04/18/2025 9:13 AM EDT us Britni Green MD POINT OF CARE TEST ENTER /EDIT ORDERABLES Final Result * BI Mammogram Screening Tomosynthesis Bilateral (08/03/2024 9:30 AM EDT) Anatomical Region Laterality Modality Breast Bilateral Mammography 08/03/2024 9:30 AM EDT Narrative 08/15/2024 9:26 AM EDT [facility] [address] [place] [address] Mammography Report Signed Patient: Mikaela Espinal MR#: [id number] : 1980 Acct:[id number] Age/Sex: 44 / F ADM Date: 08/03/24 Loc: HO.MAMMO Attending Dr: Britni Green MD Ordering Physician: Britni Green MD Results: 1Ne gative Date of Service: 08/03/24 Follow Up: 1 Year From [facility] Mammogram Procedure(s): MM tomosynthesis screening BI Accession Number(s): [id number] cc: Britni Green MD EXAMINATION: MM SCREENING [...] in OV> 08/15/24923 DD/ 9 TD/TT: 08/03/24956 Assistive Technology Trainer: Procedure Note Donotuseinterpreter, Image - 08/15/2024 [facility] [address] [place] [address] Mammography Report Signed Patient: Mikaela Espinal LMR#: [id number] : 1980Acct:[id number] Age/Sex: 44 / FADM Date: 08/03/24 Loc: HO.MAMMO Attending Dr: Britni Green MD Ordering Physician: Britni Green MDResults: 1Ne gative Date of Service: 08/03/24Follow Up: 1 Year From Orig ina Mammogram Procedure(s): MM tomosynthesis screening BI Accession Number(s): [id number] cc: Britni Green MD EXAMINATION: MM SCREENING [...] in OV> 08/15/24923 DD/ 9 TD/TT: 08/03/24956 Assistive Technology Trainer: us Britni Green MD IMG BI PROCEDURES Final Result * Hm Colonoscopy (07/05/2024) Colonoscopy Normal Normal Historical Provider MD HEALTH MAINTENANCE Final Result * Lipid Panel, Standard (05/19/2023 11:40 AM EDT) Triglycerides 54 mg/dL [facility] Comment:Desirable Triglyceri de: less than 150 mg/dLBorderline High Triglyceride 150-199 mg/dLHigh Triglyceride: 200-499 mg/dLVery High Triglyceride: greater than or equal to 5OO mg/dL Cholesterol 153 mg/dL [facility] Comment:Desirable Cholestero l: less than 200 mg/dLBorderline High Cholesterol: 200-239 mg/dLHigh Cholesterol: greater than 239 mg/dL LDL Cholesterol Calculated 76 mg/dl [facility] Comment:Desirable LDL: less than 100 mg/dLNear Optimal/Above Optimal LDL: 110- 129 mg/dLBorderline High LDL: 130-159 mg/dLHigh LDL: 160-189 mg/dLVery High LDL: greater than or equal to 190 mg/dL HDL Cholesterol 67 mg/dL [facility] Comment:Desirable HDL: great er than 40 mg/dL Note: This HDL assay may give artificially low results in patients with liver disease. 05/19/2023 11:4 0 AM EDT 05/19/2023 11:40 AM EDT [facility] External Provider LAB BLO OD ORDERABLES Final Result [facility] [address] [place] [phone] from Last 3 Months or Most Recently Relevant to Health Maintenance Insurance C3 Care Teams Distribution Center Supervisor Relationship Specialty Start Date End Date Britni Green MD [address] [place] [phone] PCP - General Family Medicine 06/19/18
--- OUTSIDE RECORDS SUMMARY | 2025-10-23 12:13 | XMS_ITS | Encounter Summary ---
Author Organization [employer] Address [address] [facility] 7t [place] [address] Care Team Providers Care Manual Plate Filler Name Role Phone Moni Green MD Primary Care Provider + Reason for Visit * Reason Comments Med Change Request Encounter Details Date Type Department Care Team ([facility] Contact Info) Description 08/11/2023 Refill [facility] [address] [place], [place] [phone] Moni Green MD [address] [place] [address] Grade II hemorrhoids Social History Tobacco Use [...] Description 11/15/2025 1:15 PM EST Office Visit [facility] [address] [place] [phone] Luanne Waller MD [address] [place] [phone] documented as of this encounter Visit Diagnoses Diagnosis Grade II hemorrhoids documented in this encounter Additional Health Concerns Assessment Noted Time PHQ-9 Depression Total Score: 0 02/15/20 23 10:46 AM EDT documented as of this encounter Care Teams Manual Plate Filler Relationship Specialty Start Date End Date Moni Green MD [address] [place] [phone] PCP - General Family Medicine 06/19/18 documented as of this encounter
--- OUTSIDE RECORDS SUMMARY | 2025-10-23 12:13 | XMS_ITS | Encounter Summary ---
Author Organization [employer] Address [address] [facility] 7t [place] [address] Care Team Providers Care Park Recreation Manager Name Role Phone Moni Green MD Primary Care Provider + Reason for Visit * Reason Comments Med Change Request Encounter Details Date Type Department Care Team ([facility] Contact Info) Description 08/11/2023 Refill [facility] [address] [place], [place] [phone] Moni Green MD [address] [place] [address] Moderate persistent asthma without complication Social History [...] Description 11/15/2025 1:15 PM EST Office Visit [facility] [address] [place] [phone] Luanne Waller MD [address] [place] [address] documented as of this encounter Visit Diagnoses Diagnosis Moderate persistent asthma without complication documented in this encounter Additional Health Concerns Assessment Noted Time PHQ-9 Depression Total Score: 0 02/15/20 23 10:46 AM EDT documented as of this encounter Care Teams Park Recreation Manager Relationship Specialty Start Date End Date Moni Green MD [address] [place] [phone] PCP - General Family Medicine 06/19/18 documented as of this encounter
--- OUTSIDE RECORDS SUMMARY | 2025-10-23 12:13 | XMS_ITS | Encounter Summary ---
Author Organization [employer] Address [address] [facility] 7t [place] [address] Care Team Providers Care Range Mounter Name Role Phone Moni Green MD Primary Care Provider + Reason for Visit * Reason Comments Med Refill Encounter Details Date Type Department Care Team ([facility] st Contact Info) Description 05/15/2025 Refill [facility] [address] [place], [place] [phone] Moni Green MD [address] [place] [address] Psoriasiform dermatitis Social History Tobacco Use Types [...] Description 11/15/2025 1:15 PM EST Office Visit [facility] [address] [place] [address] Luanne Wlaler MD [address] [place] [address] documented as of this encounter Visit Diagnoses Diagnosis Psoriasiform dermatitis Other psoriasis and similar disorders documented in this encounter Additional Health Concerns Assessment Noted Time PHQ-9 Depression Total Score: 8 10/09/20 24 11:43 AM EST documented as of this encounter Care Teams Range Mounter Relationship Specialty Start Date End Date Moni Green MD [address] [place] [phone] PCP - General Family Medicine 06/19/18 documented as of this encounter
== END 2025-10-23 10:34 | disposition home or self-care (01) ==
LOC: HO.HVS 10:02
PROVIDERS: PCP Internal Medicine; Visit Provider Surgery Vascular Surgery
DX: I83.12 Varicose veins of left lower extremity with inflammation (principal)
CPT/HCPCS: 99204

== ENCOUNTER → 2025-10-23 10:01 | Outpatient (BNVA) | payer MEDICAID, SELFPAY | PROVIDERS: PCP Internal Medicine; Visit Provider Surgery Vascular Surgery | DX: M79.604 Pain in right leg (principal); M79.605 Pain in left leg; I83.12 Varicose veins of left lower extremity with inflammation | CPT/HCPCS: 99202 ==

== ENCOUNTER 2025-11-04 09:46 | Outpatient (REF) | payer MEDICAID, SELFPAY ==
--- NOTE | ~2025-11-04 | MM_ITS ---
EXAMINATION(S): 1. MM DIAGNOSTIC DIGITAL BREAST TOMOSYNTHESIS, BILATERAL 2. TARGETED ULTRASOUND OF THE LEFT BREAST CLINICAL INFORMATION: Chest performed at [facility] on May 22, 2025 describes 12 mm left axillary lymph node COMPARISON: Comparison made to multiple prior mammograms, most recent August 03, 2024, and most remote April 12, 2019. Chest CT on May 22, 2025 TECHNIQUE: Digital breast tomosynthesis is performed in both the mediolateral oblique and craniocaudal views along with computer-aided detection (CAD). Synthesized 2D images are generated from the tomosynthesis. FINDINGS: BREAST COMPOSITION: There are scattered areas of fibroglandular density. RIGHT BREAST: No significant masses, suspicious calcifications or other abnormalities are seen. LEFT BREAST: No significant masses, suspicious calcifications or other abnormalities are seen. No abnormal lymph nodes were seen in the obtained left spot axillary images. Targeted ultrasound of the left breast was performed at the location of the CT finding in the left axilla. The most prominent lymph node that could not be identified during the survey has overall measurements of 1.2 x 1.1 x 1.0 cm, with normal cortical thickness of 0.3 cm and preserved fatty hilum. No abnormal vascularity demonstrated with color Doppler evaluation. Difficult to be sure if the sonographically measured lymph node correlates with the one described on the CT study in May 2025. MM/MM tomosynthesis diagnostic BI IMPRESSION: RIGHT BREAST: Negative, no mammographic evidence of malignancy. Normal interval follow-up is recommended in 12 months. LEFT BREAST: Benign-appearing left axillary lymph nodes seen on today's sonographically survey. Difficult to be sure if any of them could correlate with the findings seen on the CT study in May 2025. Benign, no evidence of malignancy. Clinical follow-up is recommended. Otherwise, normal interval follow-up mammogram is recommended in 12 months. ASSESSMENT: BI-RADS: Category 2: Benign RECOMMENDATION: 1. Patient should be managed based on the clinical impression. 2. Otherwise, routine annual screening mammography. Results were provided to the patient at time of visit by the technologist. This patient's information was entered into a reminder system with a target due date for their next mammogram. Electronically signed by: Henry Saleem MD 11/04/2025 11:00 AM [facility]
--- OUTSIDE RECORDS SUMMARY | 2025-11-04 10:28 | XMS_ITS | Encounter Summary ---
Author Organization [employer] Address [address] [facility] 7t [place] [address] Care Team Providers Care Disease Education Specialist Name Role Phone Moni Green MD Primary Care Provider + Reason for Visit * Reason Comments Med Refill Encounter Details Date Type Department Care Team ([facility] st Contact Info) Description 05/15/2025 Refill [facility] [address] [place], [place] [phone] Moni Green MD [address] [place] [address] Psoriasiform dermatitis Social History Tobacco Use Types [...] Description 11/15/2025 1:15 PM EST Office Visit [facility] [address] [place] [phone] Luanne Waller MD [address] [place] [address] documented as of this encounter Visit Diagnoses Diagnosis Psoriasiform dermatitis Other psoriasis and similar disorders documented in this encounter Additional Health Concerns Assessment Noted Time PHQ-9 Depression Total Score: 8 10/09/20 24 11:43 AM EST documented as of this encounter Care Teams Disease Education Specialist Relationship Specialty Start Date End Date Moni Green MD [address] [place] [phone] PCP - General Family Medicine 06/19/18 documented as of this encounter
--- OUTSIDE RECORDS SUMMARY | 2025-11-04 10:28 | XMS_ITS | Encounter Summary ---
Author Organization [employer] Address [address] [facility] 7t [place] [address] Care Team Providers Care Industrial Electrical Technician Name Role Phone Moni Green MD Primary Care Provider + Reason for Visit * Reason Comments Med Change Request Encounter Details Date Type Department Care Team ([facility] Contact Info) Description 08/11/2023 Refill [facility] [address] [place], [place] [phone] Moni Green MD [address] [place] [address] Grade II hemorrhoids Social History Tobacco Use [...] Description 11/15/2025 1:15 PM EST Office Visit [facility] [address] [place] [phone] Luanne Waller MD [address] [place] [address] documented as of this encounter Visit Diagnoses Diagnosis Grade II hemorrhoids documented in this encounter Additional Health Concerns Assessment Noted Time PHQ-9 Depression Total Score: 0 02/15/20 23 10:46 AM EDT documented as of this encounter Care Teams Industrial Electrical Technician Relationship Specialty Start Date End Date Moni Green MD [address] [place] [phone] PCP - General Family Medicine 06/19/18 documented as of this encounter
--- OUTSIDE RECORDS SUMMARY | 2025-11-04 10:28 | XMS_ITS | Encounter Summary ---
Author Organization [employer] Address [address] [facility] 7t [place] [address] Care Team Providers Care Behavioral Health Specialist Name Role Phone Moni Green MD Primary Care Provider + Reason for Visit * Reason Comments Med Change Request Encounter Details Date Type Department Care Team ([facility] Contact Info) Description 08/11/2023 Refill [facility] [address] [place], [place] [phone] Moni Green MD [address] [place] [address] Moderate persistent asthma without complication Social History Tobacco Use Types Packs/Day Years Used Date Smoking Tobacco: Never Passive Smoke Exposure: Never Smokeless Tobacco: Never Alcohol Use Standard Drinks/Week Comments Never 0 (1 standard drink = 0.6 oz pur e alcohol) Depression Answer Date Recorded Patient Health Questionnaire-9 Score 0 02/14/2023 Housing Stability Answer Date Recorded What is your housing situation today? I have jenniefr azevedo 08/15/[address] you [...] Description 11/15/2025 1:15 PM EST Office Visit [facility] [address] [place] [phone] Luanne Waller MD [address] [place] [address] documented as of this encounter Visit Diagnoses Diagnosis Moderate persistent asthma without complication documented in this encounter Additional Health Concerns Assessment Noted Time PHQ-9 Depression Total Score: 0 02/15/20 23 10:46 AM EDT documented as of this encounter Care Teams Behavioral Health Specialist Relationship Specialty Start Date End Date Moni Green MD [address] [place] [phone] PCP - General Family Medicine 06/19/18 documented as of this encounter
--- OUTSIDE RECORDS SUMMARY | 2025-11-04 10:28 | XMS_ITS | Clinical Summary ---
Author Organization [employer] Address [address] [place] [address] Care Team Providers Care Manager Valuation Name Role Phone Britni Green MD Primary [...] Active beta carotene (vitamin A) 3 MG (04955 UT) capsule Take 10,000 Units by mouth in the morning. Active Galzin 25 MG capsule TAKE 1 CAPSULE (25 MG) ORALLY DAILY 3 Active omeprazole (PriLOSEC) [address] capsule Take 40 mg by mouth. 9 Active ergocalciferol (Vitamin D2) 1.25 MG (72734 UT) capsuleIndication s:Vitamin D deficiency TAKE 1 [...] Maintenance, 03/28/25 2:58:00 PM EDT, [id number], 160, cm, 03/04/25 15:12:00 EDT, Height, 114, [...] Morbid obesity with BMI of 40.0-44.9, adult ([facility]) 07/30/2025 Assessment & Plan (07/30/2025 2:48 PM EDT): Currently on Zepbound, doing well. She will follow-up with location director I discussed re weight reduction options including [...] about [facility] in [place] to call for appointment, a referral was [...] EDT): Probably Fibromyalgia, will follow up with Global Clinical Leader. Will increase Topamax to 100 mg QHS [...] simple cysts, seen on renal US 03/2024 ([facility]), no need to fu. Chronic gastritis without bleeding 11/29/2023 Overview (11/29/2023): Had EGD on 2019 ([facility]). Assessment & Plan (11/29/2023 2:41 PM EST): Had EGD on 2019 ([facility]). She maybe symptomatic. Use sucralfate tid [...] daily, use albuterol as needed Follow-up with route supervisor Assessment & Plan (11/29/2023 2:33 PM EST): [...] r/o MDD pt has an appointent with [facility] counselor. FU in 6 weeks with me [...] of a mild psoriasis follow up with cinder crane operator. Continue Methotrexate mg per week and follow up with cinder crane operator. Essential hypertension 11/17/2022 Assessment & Plan [...] 11/17/2022 Overview (08/11/2023): EGD on 01/18/19 At [facility]: esophagitis + gastritis + duodenitis Assessment & Plan (02/14/2023 11:23 AM EDT): Most likely exacerbated by recent gastric sleeve Recommended smaller in fraction meals go back to liquid diet advance PO diet every other week use pantoprazole x2 days and sucralfate PRN encouraged to continue weight reduction Hyperparathyroidism 11/17/2022 Assessment & Plan (04/18/2025 2:15 PM EDT): Seen by location director, he is resistant to vitamin D supplementation. Obtain POC from [facility] endocrinology office Assessment & Plan (07/13/2024 [...] 11/23/2017 Overview (08/11/2023): EGD on 01/18/19 at [facility]= History of cholecystectomy 11/23/2017 Lumbar [...] after approximately 35 pounds. Continue Zepbound per location director She has declined to continue follow-up with [...] not want to be referred to a stem cutter at this time. DC Topamax and start [...] wellbutrin. -Advised to make an appointment with [facility] Weight management clinic. Assessment & Plan (06/20/2023 11:10 AM EDT): She's sp bariatric surgery on nov 2022, lost total of 100 lb since Discussed re weight reduction options including exercise, life style modifications, diet, referral to military source operations specialist. Discussed re lower calorie intake, increase dietary fiber Encounters Date Type Department Care Team Description 10/29/2025 Telephone [facility] [address] [place] [address] Britni Green MD january09/13/2025 Refill [facility] [address] [place] [address] Luanne Waller MD Psoriasiform dermatitis 08/09/2025 Telephone [facility] [address] [place], [place] [phone] Britni Green MD telephone call 08/09/2025 Telephone [facility] [address] [place] [address] Britni Green MD Telephone 08/08/2025 Telephone [facility] [address] [place], [place] [phone] Britni Green MD Medication Question 08/05/2025 Refill [facility] [address] [place] [address] Britni Green MD Lumbar paraspinal muscle spasm; Vitamin D deficiency from Last 3 Months Immunizations Immunization Administration [...] 1:15 PM EST Office Visit [facility] [address] [place] [address] Luanne Wallre MD [address] [place] [address] Health Maintenance Due Date Last Done Comments [...] EDT) ~Hepatitis B Surface Antibody NONREACTIVE Nonreactive [facility] Comment:Nonreactive: < 8.00 mIU/mL Hepatitis B Core Antibody Nonreactive Nonreactive [facility] Hepatitis C Antibody Nonreactive Nonreactive [facility] Comment:Antibodies to HCV no t detected; does not exclude early acuteHCV infection. Hepatitis B Surface Ag Negative Negative [facility] 05/22/2025 10:4 6 AM EDT 05/22/2025 1:57 PM EDT us Generic External Data Provider LAB BLOOD ORDERAB LES Final Result [facility] [address] [place] [address] [phone] * Albumin, Random Urine W/Creatinine (05/22/2025 10:46 AM EDT) Creatinine, Urine 278.70 mg/dL [facility] Microalbumin Urine 15.0 mg/L [facility] Microalbum Creatinine Ratio Ur 5.3 <30 ug/mg cr [facility] Comment:Albumin/Creatinine R atio Reference Ranges: Normal: < 30 ug/mg creatinine Microalbuminuria: 30 - 300 ug/mg creatinineClinical Albuminuria: > 300 ug/mg creatinine 05/22/2025 10:4 6 AM EDT 05/22/2025 1:41 PM EDT us Generic External Data Provider LAB URINE ORDERAB LES Final Result [facility] [address] [place] [address] [phone] * HIV-1/2 Antigen and Antibodies, Fourth Generation, with Reflexes (05/22/2025 10:46 AM EDT) HIV AB/AG Nonreactive Nonreactive [facility] Comment:HIV-1 p24 Ag and/or HIV-1/HIV-2 Ab not detected.A test result that is nonreactive does not exclude thepossibility of exposure to or infection with HIV-1 and/orHIV-2. Nonreactive results in this assay for individualswith prior exposure to HIV-1 and/or HIV-2 may be due toantigen and antibody levels that are below the limit ofdetection of this assay.[employer] HIV Ag/Ab Combo assay result andsupplemental assay results should be interpreted inconjunction with the patient's clinical presentation,history and other laboratory results. If the results areinconsistent with clinical evidence, additional testing issuggested to confirm the result. 05/22/2025 10:4 6 AM EDT 05/22/2025 1:57 PM EDT us Generic External Data Provider LAB BLOOD ORDERAB LES Final Result [facility] [address] [place] [phone] [phone] * POCT HGB A1C (04/18/2025 9:13 [...] AM EDT Narrative 08/15/2024 9:26 AM EDT [address] [place] [address] Mammography Report Signed Patient: Mikaela Espinal MR#: [id number] : 1980 Acct:[id number] Age/Sex: 44 / F ADM Date: 08/03/24 Loc: HO.MAMMO Attending Dr: Britni Green MD Ordering Physician: Britni Green MD Results: 1Ne gative Date of Service: 08/03/24 Follow Up: 1 Year From Orig ina Mammogram Procedure(s): MM tomosynthesis screening BI Accession Number(s): [id number] cc: Britni Green MD EXAMINATION: MM SCREENING [...] in OV> 08/15/24923 DD/ 9 TD/TT: 08/03/24956 [employer] Home Park Manager: Procedure Note Donotuseinterpreter, Image - [facility] [address] [place] [address] Mammography Report Signed Patient: Mikaela Espinal LMR#: [id number] : 1980Acct:[id number] Age/Sex: 44 / FADM Date: 08/03/24 Loc: HO.MAMMO Attending Dr: Britni Green MD Ordering Physician: Britni Green MDResults: 1Ne gative Date of Service: 08/03/24Follow Up: 1 Year From [facility] Mammogram Procedure(s): MM tomosynthesis screening BI Accession Number(s): [id number] cc: Britni Green MD EXAMINATION: MM SCREENING [...] in OV> 08/15/24923 DD/ 9 TD/TT: 08/03/24956 [employer] Home [employer] Manager: Britni Green MD IMG BI PROCEDURES Final Result * Hm Colonoscopy (07/05/2024) Colonoscopy Normal Normal Historical Provider HEALTH MAINTENANCE Final Result * Lipid Panel, Standard (05/19/2023 11:40 AM EDT) Triglycerides 54 mg/dL [facility] Comment:Desirable Triglyceri de: less than 150 mg/dLBorderline High Triglyceride 150-199 mg/dLHigh Triglyceride: 200-499 mg/dLVery High Triglyceride: greater than or equal to 5OO mg/dL Cholesterol 153 mg/dL [facility] Comment:Desirable Cholestero l: less than 200 mg/dLBorderline High Cholesterol: 200-239 mg/dLHigh Cholesterol: greater than 239 mg/dL LDL Cholesterol Calculated 76 mg/dl [facility] Comment:Desirable LDL: less than 100 mg/dLNear Optimal/Above Optimal LDL: 110- 129 mg/dLBorderline High LDL: 130-159 mg/dLHigh LDL: 160-189 mg/dLVery High LDL: greater than or equal to 190 mg/dL HDL Cholesterol 67 mg/dL [facility] Comment:Desirable HDL: great er than 40 mg/dL Note: This HDL assay may give artificially low results in patients with liver disease. 05/19/2023 11:4 0 AM EDT 05/19/2023 11:40 AM EDT [facility] External Provider LAB BLO OD ORDERABLES Final Result [facility] [address] [place] [address] [phone] from Last 3 Months or Most Recently Relevant to Health Maintenance Insurance [address] [place], [place] [address] Care Teams Manager Valuation Relationship Specialty Start Date End Date Britni Green MD [address] [place] [phone] PCP - General Family Medicine 06/19/18
--- OUTSIDE RECORDS SUMMARY | 2025-11-04 10:28 | XMS_ITS | Encounter Summary ---
Author Organization [employer] Address [address] [place] [address] Care Team Providers Care Oil And Gas Exploration Technician Name Role Phone Moni Green MD Primary Care Provider + Reason for Visit * Reason Onset Date Comments Med Refill 08/03/2024 Encounter Details Date Type Department Care Team ([facility] st Contact Info) Description 08/03/2024 Refill [facility] [address] [place] [address] Moni Green MD [address] [place] [address] Vitamin D deficiency Social History Tobacco Use [...] Description 11/15/2025 1:15 PM EST Office Visit [facility] [address] [place] [phone] Luanne Waller MD [address] [place] [phone] documented as of this encounter Visit Diagnoses Diagnosis Vitamin D deficiency documented in this encounter Additional Health Concerns Assessment Noted Time PHQ-9 Depression Total Score: 0 02/15/20 23 10:46 AM EDT documented as of this encounter Care Teams Oil And Gas Exploration Technician Relationship Specialty Start Date End Date Moni Green MD [address] [place] [phone] PCP - General Family Medicine 06/19/18 documented as of this encounter
== END 2025-11-04 09:47 | disposition home or self-care (01) ==
LOC: HO.MAMMO 09:46
PROVIDERS: PCP Internal Medicine; Visit Provider Internal Medicine
DX: R59.0 Localized enlarged lymph nodes (principal)
CPT/HCPCS: 76642; 77062; 77066

== ENCOUNTER → 2025-11-04 10:00 | Outpatient (BNV) | payer MEDICAID, SELFPAY | PROVIDERS: PCP Internal Medicine; Visit Provider Radiology Body Imaging | DX: R59.0 Localized enlarged lymph nodes (principal); N63.32 Unspecified lump in axillary tail of the left breast | CPT/HCPCS: 76642; 77062; 77066 ==